=== PATIENT | male | born 1940 | race Caucasian/White ===

== ENCOUNTER 2021-03-30 21:46 | Inpatient (IN) ==
[2021-03-30] MEDS ORDERED: SODIUM CHLORIDE 0.9% 500 ML IV ONE ×2 (23:00→23:54)
--- NOTE | 2021-03-30 23:19 | XRay Report ---
SINGLE VIEW CHEST CLINICAL HISTORY: Sepsis. FINDINGS: 2 AP, portable, upright chest radiographs are compared to study dated 01/17/2021 and correla pop with chest CT dated 01/19/2021. The examination is degraded by portable technique and patient rota tion. The patient is status post midline sternotomy and cardiac valve surgeries. Epicardial pacing le ads are noted. The heart is markedly enlarged noting atherosclerotic calcification of the thoracic ao rta. There is mild pulmonary vascular congestion. Scarring/atelectasis is noted at the lung bases. Ch ronic interstitial thickening is similar to previous. No airspace consolidation or large pleural effu shira is identified. No pneumothorax is seen. The skeletal structures are osteopenic. The bony thorax is grossly intact. Thoracolumbar spinal rods are in place. IMPRESSION: Marked cardiomegaly with mild pulmonary vascular congestion. ACT 112: Negative or not required by law. Electronically signed by: Rome Mendoza M.D. 03/30/2021 11:18 PM
[2021-03-30 23:28] LABS: Hematocrit (blood only) 31.8 % (42-52); Hemoglobin 10.9 g/dL (14.0-18.0); Mean Corpuscular Hgb Conc 34.3 g/dL (32-36); Mean Corpuscular Volume 96.4 fL (80-100); Mean Platelet Volume 9.8 fL (7.4-10.4); Platelet Count 127 K/uL (130-400); RDW Coefficient of Variation 13.7 % (11.5-14.5); RDW Standard Deviation 48.7 fL (36.4-46.3); White Blood Count 20.14 K/uL (4.8-10.8)
[2021-03-30] MEDS ORDERED: cefTRIAXone SODIUM 1,000 MG/50 ML BAG IV STA (23:34)
[2021-03-30 23:41] LABS: INR 1.2 (0.9-1.1); Partial Thromboplastin Ratio 1.2; Prothrombin Time 11.9 Seconds (9.0-12.0)
[2021-03-30 23:46] LABS: BUN Creatinine Ratio 20.3 (10-20); Calcium 9.5 mg/dl (8.5-10.1); Creatinine Clr Calc Pharmacy 15.2 ml/min; Est GFR (Non-African American) 13.8; Magnesium 2.2 mg/dl (1.8-2.4); Potassium 3.9 mmol/L (3.5-5.1)
--- NOTE | 2021-03-31 00:03 | Emergency Department Note ---
Impression & Plan Sepsis, Acidosis, lactic, Acute hypotension, Acute pyelonephritis, Acute renal failure ED Provider Note NAME: SEEMA ARREOLA AGE: 80 SEX: M : 1940 ARRIVES VIA: Walk-In INFORMANT: Patient, the patient's family member ED PROVIDER(S): Gonsalo Tomlni DO CHIEF COMPLAINT: Decreased urine output and weakness. HPI: The patient is an 80-year-old male who presented to the emergency department with family member for an evaluation of decreased urine output. The patient had a Linares catheter change on Friday. The patient was seen in our facility in December this year. The patient had a febrile illness and was found to have bacteremia with streptococcal species. The patient was transferred to [place]. He has a history of aortic valve disease. The patient was started on an antibiotic yesterday by his primary care physician. The family member is not aware of the antibiotic he was started on. The patient started noticing fever over the last few days. He has had no nausea or vomiting. He has noticed some decreased output in the urinary Linares catheter. He denies having any chest pain. He does complain of some difficulty breathing. He denies having any fever acutely but did notice he was having weakness and dizziness upon standing. ROS: See above HPI for pertinent positives & negatives. A total of 10 systems reviewed and were otherwise negative. PAST MEDICAL HISTORY: See Below PAST SURGICAL HISTORY: See Below FAMILY HISTORY: See Below SOCIAL HISTORY: See Below HOME MEDICATIONS: See Below ALLERGIES: See Below VITALS: See Below PHYSICAL EXAMINATION: GENERAL: The patient is awake and alert. He is somewhat listless appearing. EYES: The conjunctivae are clear. The pupils are round and reactive. EARS, NOSE, MOUTH AND THROAT: The nose is without any evidence of any deformity. Mucous membranes are dry. NECK: The neck is nontender and supple. RESPIRATORY: Diminished breath sounds are noted throughout. There were rales at both bases. CARDIOVASCULAR: Irregular rhythm was noted auscultation. Systolic murmur was noted. GASTROINTESTINAL: The abdomen is mildly distended. There is suprapubic tenderness to palpation but no guarding rigidity. MUSCULOSKELETAL/EXTREMITIES: There is no evidence of gross deformity full range of motion is noted in the hips and shoulders. SKIN: Skin was pale and dry. Pedal edema was noted bilaterally. NEUROLOGIC: Patient is awake alert and oriented x3. MEDICAL DECISION MAKING: The patient is an 80-year-old male who presented to the emergency department for an evaluation of generalized weakness. The patient also has had a fever intermittently over the last few days. He was started on an antibiotic by his outpatient primary care physician only 24 hours ago. The patient was hypotensive upon arrival to the emergency department. The patient had no urine output and initially I thought he might be in urinary retention however the Linares catheter was replaced and the patient did not have significant urine output. The patient was treated with IV antibiotics and IV fluids. The patient recently had bacteremia with streptococcal species. His last urinary tract infection that had a definite causative agent had a mixed resistance pattern. The patient was treated with Rocephin after reviewing the antibiogram for the recent urinary tract infection. Blood cultures were taken. The patient was found no signs of renal failure as well as lactic acidosis. The patient was treated with IV fluids but given his history of congestive heart failure and valvular heart disease I did not want to put the patient in the pulmonary edema. He had a normal pulse but his blood pressure continue to be low. I discussed the patient's condition with the on-call [facility] group. They have agreed to evaluate the patient in the emergency department for further management and disposition. Triage Nursing notes reviewed. Prior medical records reviewed Vital Signs: reviewed and remarkable for hypotension. Differential diagnosis: Infection, dehydration, metabolic abnormality, hypo/hyperglycemia, electrolyte disturbance, anemia, hypoxia, cardiac sources, intracerebral event, toxicologic, neurologic, as well as other pathologies. ER treatment provided: See below Diagnostics interpreted by me: ECG: EKG was obtained in the emergency department. My interpretation is atrial fibrillation at 65 bpm. There were no PVCs noted. LVH was noted by voltage criteria. Lateral ST depressions with T wave inversions were noted. This was compared to a tracing from January 172020. No significant changes were noted. Cardiac Monitoring: An order was placed for continuous cardiac monitoring. The monitor shows a rate of 85 bpm with atrial fibrillation rhythm. Laboratory studies: As stated above and show below. Imaging studies: See below Consultation(s): I discussed this case with Dr. Mac who is on-call for the [facility] group. He will evaluate the patient in the emergency department. ED COURSE: Procedures: none PDMP:reviewed and no issues Critical Care: I have personally spent greater than 40 minutes of critical care time in the direct management of this patient. This includes bedside care, interpretation of diagnostic studies, and testing, discussion with consultants, patient, and family members, and other required patient management activities. This 40 minutes is in excess of all separately billable procedures. Past Med/Surg History Medical History Acute respiratory failure with hypoxia MONICO (acute kidney injury) Anxiety Atrial fibrillation "on Coumadin" CHF (congestive heart failure) Cirrhosis Depression Dyslipidemia HTN (hypertension) Hyponatremia Prosthetic aortic valve stenosis Pulmonary edema Streptococcal bacteremia Supratherapeutic INR Weakness Surgical History History of aortic valve replacement "2009" History of inguinal hernia repair History of mitral valve replacement "2009" S/P AVR S/P MVR (mitral valve repair) Status post repair of hydrocele Social History Smoking Status: Former smoker Tobacco Type: Cigarettes Hx Alcohol Use: Yes Alcohol type: wine Hx Substance Use: No Preferred Language: Romanian Communication Ability: Effective Current Living Situation: Spouse Feels Safe at Home: Yes Assistive Devices: Walker Allergies Allergies Allergy/AdvReac Type Severity Reaction Status Date / Time No Known Allergies Allergy Unknown Verified 03/30/21 23:14 Home Meds Home Medications Medication Instructions Recorded Confirmed amlodipine 10 mg PO HS 01/17/21 03/30/21 bupropion HCl 150 mg PO QPM 01/17/21 03/30/21 escitalopram oxalate 20 mg PO HS 01/17/21 03/30/21 furosemide 40 mg PO DAILY PRN 01/17/21 03/30/21 losartan 100 mg PO HS 01/17/21 03/30/21 tamsulosin 0.4 mg PO HS 01/17/21 03/30/21 triamterene-hydrochlorothiazid 1 cap PO HS 01/17/21 03/30/21 acetaminophen [Tylenol Extra 1,000 mg PO Q8H PRN 03/30/21 03/30/21 Strength] amoxicillin 2,000 mg PO DIRECTED PRN 03/30/21 03/30/21 aspirin 81 mg PO HS 03/30/21 03/30/21 cholecalciferol (vitamin D3) 125 mcg PO HS 03/30/21 03/30/21 [Vitamin D3] finasteride 5 mg PO HS 03/30/21 03/30/21 sulfamethoxazole-trimethoprim 1 tab PO BID 03/30/21 03/30/21 Results & Data (ED) Vital Signs Vital Signs - 24 hr 03/30/21 21:49 03/30/21 23:45 03/30/21 23:56 Temperature 36.9 C Temperature Source Temporal Artery Scan Pulse Rate 73 67 Pulse Rate from SpO2 Sensor Respiratory Rate 18 23 Respiratory Effort / Characteristics Non-Labored Spontaneous Non-Labored Spontaneous Respiratory Depth Normal Respiratory Pattern Regular Blood Pressure 93/59 L 97/56 L Blood Pressure Mean 70 69 Blood Pressure Position Sitting Pulse Oximetry 94 97 Oxygen Delivery Method Room Air Sepsis Recent Fever Within 48 Hours Yes Sepsis New/Unexplained Change in Mental Status No Sepsis Action Taken by Nursing No Action Required 03/31/21 00:31 03/31/21 00:40 03/31/21 01:00 Temperature Temperature Source Pulse Rate 62 59 L 76 Pulse Rate from SpO2 Sensor 62 62 Respiratory Rate 18 23 22 Respiratory Effort / Characteristics Respiratory Depth Respiratory Pattern Blood Pressure 83/39 L 103/56 L 99/67 L Blood Pressure Mean 53 71 77 Blood Pressure Position Pulse Oximetry 96 95 95 Oxygen Delivery Method Sepsis Recent Fever Within 48 Hours Sepsis New/Unexplained Change in Mental Status Sepsis Action Taken by [facility] Medications Current Medication List: was personally reviewed by me Laboratory Data Attestation: I reviewed the patient's lab results. Result diagrams: 03/30/21 23:15 03/30/21 23:15 Lab Results 03/30/21 03/30/21 03/30/21 Range/Units 23:15 23:15 23:15 WBC 20.14 H (4.8-10.8) K/uL RBC 3.30 L (4.7-6.1) M/uL Hgb 10.9 L (14.0-18.0) g/dL Hct 31.8 L (42-52) % MCV 96.4 (80-100) fL MCH 33.0 (25-34) pg MCHC 34.3 (32-36) g/dL RDW Std Deviation 48.7 H (36.4-46.3) fL RDW Coeff of Luis 13.7 (11.5-14.5) % Plt Count 127 L (130-400) K/uL MPV 9.8 (7.4-10.4) fL Immature Gran % (Auto) 0.7 % Neut % (Auto) 95.1 % Lymph % (Auto) 2.8 % Hooker % (Auto) 1.4 % Eos % (Auto) 0.0 % Baso % (Auto) 0.0 % Neut # (Auto) 19.14 H (1.4-6.5) K/uL Lymph # (Auto) 0.56 L (1.2-3.4) K/uL Hooker # (Auto) 0.29 (0.11-0.59) K/uL Eos # (Auto) 0.00 (0-0.5) K/uL Baso # (Auto) 0.01 (0-0.2) K/uL Immature Gran # (Auto) 0.14 H (0.00-0.02) K/uL Echinocytes 1+ PT 11.9 (9.0-12.0) Seconds INR 1.2 H (0.9-1.1) APTT 31.0 (21.0-31.0) Seconds PTT Ratio 1.2 Sodium 132 L (136-145) mmol/L Potassium 3.9 (3.5-5.1) mmol/L Chloride 96 L (98-107) mmol/L Carbon Dioxide 25 (21-32) mmol/L Anion Gap 11.0 (3-11) BUN 78 H (7-18) mg/dl Creatinine 3.85 H (0.6-1.4) mg/dl Est Cr Clr Drug Dosing 15.2 ml/min Est GFR ( Amer) 16.0 Est GFR (Non-Af Amer) 13.8 BUN/Creatinine Ratio 20.3 H (10-20) Glucose 123 H (70-99) mg/dl Lactate (0.4-2.0) mmol/L Calcium 9.5 (8.5-10.1) mg/dl Magnesium 2.2 (1.8-2.4) mg/dl Total Bilirubin 0.9 (0.2-1) mg/dl AST 26 (15-37) U/L ALT 18 (12-78) U/L Alkaline Phosphatase 97 (45-117) U/L Troponin I 0.484 H* (0-0.045) ng/ml Total Protein 7.2 (6.4-8.2) gm/dl Albumin 3.0 L (3.4-5.0) gm/dl Globulin 4.2 H (2.5-4.0) gm/dl Albumin/Globulin Ratio 0.7 L (0.9-2) Procalcitonin (0-0.5) ng/ml Urine Color Urine Appearance (Clear) Urine pH (4.5-7.5) Ur Specific [place] (1.000-1.030) Urine Protein (Negative) Urine Glucose (UA) (Negative) Urine Ketones (Negative) Urine Blood (Negative) Urine Nitrite (Negative) Urine Bilirubin (Negative) Urine Urobilinogen (Negative) Ur Leukocyte Esterase (Negative) Urine RBC (0-4) /hpf Urine WBC (0-5) /hpf Ur Epithelial Cells (0-5) /lpf Urine Bacteria (Negative) COVID-19 Eval Order SARS-CoV-2 (PCR) (Negative) Influenza Type A (PCR) (Neg) Influenza Type B (PCR) (Neg) RSV (RT-PCR) (Neg) 03/30/21 03/30/21 03/31/21 Range/Units 23:15 23:40 00:14 WBC (4.8-10.8) K/uL RBC (4.7-6.1) M/uL Hgb (14.0-18.0) g/dL Hct (42-52) % MCV (80-100) fL MCH (25-34) pg MCHC (32-36) g/dL RDW Std Deviation (36.4-46.3) fL RDW Coeff of Luis (11.5-14.5) % Plt Count (130-400) K/uL MPV (7.4-10.4) fL Immature Gran % (Auto) % Neut % (Auto) % Lymph % (Auto) % Hooker % (Auto) % Eos % (Auto) % Baso % (Auto) % Neut # (Auto) (1.4-6.5) K/uL Lymph # (Auto) (1.2-3.4) K/uL Hooker # (Auto) (0.11-0.59) K/uL Eos # (Auto) (0-0.5) K/uL Baso # (Auto) (0-0.2) K/uL Immature Gran # (Auto) (0.00-0.02) K/uL Echinocytes PT (9.0-12.0) Seconds INR (0.9-1.1) APTT (21.0-31.0) Seconds PTT Ratio Sodium (136-145) mmol/L Potassium (3.5-5.1) mmol/L Chloride (98-107) mmol/L Carbon Dioxide (21-32) mmol/L Anion Gap (3-11) BUN (7-18) mg/dl Creatinine (0.6-1.4) mg/dl Est Cr Clr Drug Dosing ml/min Est GFR ( Amer) Est GFR (Non-Af Amer) BUN/Creatinine Ratio (10-20) Glucose (70-99) mg/dl Lactate 5.1 H* (0.4-2.0) mmol/L Calcium (8.5-10.1) mg/dl Magnesium (1.8-2.4) mg/dl Total Bilirubin (0.2-1) mg/dl AST (15-37) U/L ALT (12-78) U/L Alkaline Phosphatase (45-117) U/L Troponin I (0-0.045) ng/ml Total Protein (6.4-8.2) gm/dl Albumin (3.4-5.0) gm/dl Globulin (2.5-4.0) gm/dl Albumin/Globulin Ratio (0.9-2) Procalcitonin 72.39 H (0-0.5) ng/ml Urine Color Urine Appearance (Clear) Urine pH (4.5-7.5) Ur Specific [place] (1.000-1.030) Urine Protein (Negative) Urine Glucose (UA) (Negative) Urine Ketones (Negative) Urine Blood (Negative) Urine Nitrite (Negative) Urine Bilirubin (Negative) Urine Urobilinogen (Negative) Ur Leukocyte Esterase (Negative) Urine RBC (0-4) /hpf Urine WBC (0-5) /hpf Ur Epithelial Cells (0-5) /lpf Urine Bacteria (Negative) COVID-19 Eval Order CovFluRsv at [facility] SARS-CoV-2 (PCR) (Negative) Influenza Type A (PCR) (Neg) Influenza Type B (PCR) (Neg) RSV (RT-PCR) (Neg) 03/31/21 03/31/21 Range/Units 00:14 00:14 WBC (4.8-10.8) K/uL RBC (4.7-6.1) M/uL Hgb (14.0-18.0) g/dL Hct (42-52) % MCV (80-100) fL MCH (25-34) pg MCHC (32-36) g/dL RDW Std Deviation (36.4-46.3) fL RDW Coeff of Luis (11.5-14.5) % Plt Count (130-400) K/uL MPV (7.4-10.4) fL Immature Gran % (Auto) % Neut % (Auto) % Lymph % (Auto) % Hooker % (Auto) % Eos % (Auto) % Baso % (Auto) % Neut # (Auto) (1.4-6.5) K/uL Lymph # (Auto) (1.2-3.4) K/uL Hooker # (Auto) (0.11-0.59) K/uL Eos # (Auto) (0-0.5) K/uL Baso # (Auto) (0-0.2) K/uL Immature Gran # (Auto) (0.00-0.02) K/uL Echinocytes PT (9.0-12.0) Seconds INR (0.9-1.1) APTT (21.0-31.0) Seconds PTT Ratio Sodium (136-145) mmol/L Potassium (3.5-5.1) mmol/L Chloride (98-107) mmol/L Carbon Dioxide (21-32) mmol/L Anion Gap (3-11) BUN (7-18) mg/dl Creatinine (0.6-1.4) mg/dl Est Cr Clr Drug Dosing ml/min Est GFR ( Amer) Est GFR (Non-Af Amer) BUN/Creatinine Ratio (10-20) Glucose (70-99) mg/dl Lactate (0.4-2.0) mmol/L Calcium (8.5-10.1) mg/dl Magnesium (1.8-2.4) mg/dl Total Bilirubin (0.2-1) mg/dl AST (15-37) U/L ALT (12-78) U/L Alkaline Phosphatase (45-117) U/L Troponin I (0-0.045) ng/ml Total Protein (6.4-8.2) gm/dl Albumin (3.4-5.0) gm/dl Globulin (2.5-4.0) gm/dl Albumin/Globulin Ratio (0.9-2) Procalcitonin (0-0.5) ng/ml Urine Color Dark Yellow Urine Appearance Turbid A (Clear) Urine pH 5.0 (4.5-7.5) Ur Specific [place] 1.025 (1.000-1.030) Urine Protein 2+ H (Negative) Urine Glucose (UA) Negative (Negative) Urine Ketones 1+ H (Negative) Urine Blood 3+ H (Negative) Urine Nitrite Negative (Negative) Urine Bilirubin 2+ H (Negative) Urine Urobilinogen Positive H (Negative) Ur Leukocyte Esterase 3+ H (Negative) Urine RBC >30 H (0-4) /hpf Urine WBC >30 H (0-5) /hpf Ur Epithelial Cells 5-10 H (0-5) /lpf Urine Bacteria 2+ H (Negative) COVID-19 Eval Order SARS-CoV-2 (PCR) NEGATIVE (Negative) Influenza Type A (PCR) Negative (Neg) Influenza Type B (PCR) Negative (Neg) RSV (RT-PCR) Negative (Neg) Administered Medications Discontinued Medications Sodium Chloride (Nss) 500 mls @ 999 mls/hr IV .Q31M ONE Stop: 03/30/21 23:30 Last Infusion: 03/31/21 01:05 Dose: 0 mls/hr Documented by: [id number] Admin: 03/31/21 00:10 Dose: 999 mls/hr Documented by: [id number] Ceftriaxone Sodium (Rocephin) 1,000 mg in 50 mls @ 100 mls/hr IV NOW STA Stop: 03/31/21 00:03 Last Admin: 03/31/21 00:35 Dose: Not Given Documented by: [id number] Sodium Chloride (Nss) 500 mls @ 999 mls/hr IV .Q31M ONE Stop: 03/31/21 00:24 Last Infusion: 03/31/21 01:05 Dose: 0 mls/hr Documented by: [id number] Admin: 03/31/21 00:10 Dose: 999 mls/hr Documented by: [id number] Piperacillin Sod/Tazobactam Sod (Zosyn) 4.5 gm in 120 mls @ 240 mls/hr IV NOW STA Stop: 03/31/21 00:38 Last Admin: 03/31/21 00:56 Dose: 240 mls/hr Documented by: [id number] Imaging Data Radiologist's Impression: Chest X-Ray 03/30/21 23:00 SINGLE VIEW CHEST CLINICAL HISTORY: Sepsis. FINDINGS: 2 AP, portable, upright chest radiographs are compared to study dated 01/17/2021 and correlated with chest CT dated 01/19/2021. The examination is degraded by portable technique and patient rotation. The patient is status post midline sternotomy and cardiac valve surgeries. Epicardial pacing leads are noted. The heart is markedly enlarged noting atherosclerotic calcification of the thoracic aorta. There is mild pulmonary vascular congestion. Scarring/atelectasis is noted at the lung bases. Chronic interstitial thickening is similar to previous. No airspace consolidation or large pleural effusion is identified. No pneumothorax is seen. The skeletal structures are osteopenic. The bony thorax is grossly intact. Thoracolumbar spinal rods are in place. IMPRESSION: Marked cardiomegaly with mild pulmonary vascular congestion. ACT 112: Negative or not required by law. Electronically signed by: Rome Mendoza M.D. 03/30/2021 11:18 PM Discharge Plan Visit Data Chief Complaint: Unable to Void Stated Complaint: RUNNING A FEVER, HAS CATHETER UNABLE TO URINATE ED Provider: Gonsalo Tomlin Discharge Problem: Sepsis, Acidosis, lactic, Acute hypotension, Acute pyelonephritis, Acute renal failure Patient Disposition: Being Evaluated by Hospitalist Condition: Good Forms Stand Alone Forms: My [facility] Prescriptions Prescriptions: No Action furosemide 40 mg tablet 40 mg PO DAILY PRN (Reason: Fluid Retention) RF: 0 triamterene-hydrochlorothiazid 37.5-25 mg capsule 1 cap PO HS RF: 0 tamsulosin 0.4 mg capsule 0.4 mg PO HS RF: 0 amlodipine 10 mg tablet 10 mg PO HS RF: 0 losartan 100 mg tablet 100 mg PO HS RF: 0 escitalopram oxalate 20 mg tablet 20 mg PO HS RF: 0 bupropion HCl 150 mg tablet extended release 24 hr 150 mg PO QPM RF: 0 amoxicillin 500 mg Capsule 2,000 mg PO DIRECTED PRN (Reason: PRIOR TO DENTAL PROCEDURES) RF: 0 sulfamethoxazole-trimethoprim 800-160 mg tablet 1 tab PO BID RF: 0 aspirin 81 mg Tablet,Delayed Release (Dr/Ec) 81 mg PO HS RF: 0 acetaminophen [Tylenol Extra Strength] 500 mg Tablet 1,000 mg PO Q8H PRN (Reason: FEVER/PAIN) RF: 0 finasteride 5 mg Tablet 5 mg PO HS RF: 0 cholecalciferol (vitamin D3) [Vitamin D3] 125 mcg (5,000 unit) Tablet 125 mcg PO HS RF: 0 Referrals Referrals: Benedict Swanson DO [Primary Care Provider] - Discharge Problem: Sepsis Qualifiers: Sepsis type: sepsis due to unspecified organism Sepsis acute organ dysfunction status: unspecified Qualified Code(s): A41.9 - Sepsis, unspecified organism Acute renal failure Qualifiers: Acute renal failure type: unspecified Qualified Code(s): N17.9 - Acute kidney failure, unspecified
[2021-03-31] MEDS ORDERED: PIPERACILL/TAZOBAC CONSULT ACTIVE PRN (00:05)
[2021-03-31] MEDS ORDERED: PIPERACILLIN/TAZOBACTAM 4.5 GM/120 ML BAG IV STA (00:09)
[2021-03-31 00:19] LABS: Albumin Globulin Ratio 0.7 (0.9-2); Bilirubin,Total 0.9 mg/dl (0.2-1); Globulin 4.2 gm/dl (2.5-4.0); Total Protein 7.2 gm/dl (6.4-8.2); Troponin I 0.484 ng/ml (0-0.045)
[2021-03-31 00:39] LABS: Appearance Urine Turbid (Clear); Bilirubin Urine 2+ (Negative); Blood Urine 3+ (Negative); Glucose Urine UA Negative (Negative); Ketones Urine 1+ (Negative); Leukocyte Esterase Urine 3+ (Negative); Nitrite Urine Negative (Negative); Protein Urine 2+ (Negative); Specific Gravity Urine 1.025 (1.000-1.030); Urobilinogen Urine Positive (Negative)
[2021-03-31 00:54] LABS: Color Urine Dark Yellow
[2021-03-31 00:55] LABS: Basophils # (auto) 0.01 K/uL (0-0.2); Echinocytes 1+; Immature Granulocytes # (auto) 0.14 K/uL (0.00-0.02); Immature Granulocytes % (auto) 0.7 %; Lymphocytes # (auto) 0.56 K/uL (1.2-3.4); Lymphocytes % (auto) 2.8 %; Monocytes # (auto) 0.29 K/uL (0.11-0.59); Monocytes % (auto) 1.4 %; Neutrophils # (auto) 19.14 K/uL (1.4-6.5); Neutrophils % (auto) 95.1 %
[2021-03-31 01:01] LABS: Bacteria Urine 2+ (Negative); RBC Urine >30 /hpf (0-4); WBC Urine >30 /hpf (0-5)
[2021-03-31 01:10] LABS: Influenza A virus by PCR Negative (Neg); Influenza B virus by PCR Negative (Neg); RSV by PCR Negative (Neg); SARS CoV2 RNA(COVID-19) InHosp NEGATIVE (Negative)
[2021-03-31] MEDS ORDERED: ACETAMINOPHEN 1000 MG/100 ML IV IV ONE ×2 (01:22→01:55)
[2021-03-31] MEDS ORDERED: ALBUT/IPRATROP 3MG/0.5MG NEB 3 ML VIAL NEB STA (01:51)
--- NOTE | 2021-03-31 01:51 | History & Physical Report ---
Date of Service March 31, 2021 Assessment & Plan (1) Hypotension: Multifactorial : Septic shock secondary to complicated UTI, history of BPH hypovolemia ARF secondary to illness, home medications, recent outpatient Bactrim Rx contributory A. 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 valve repair status post antibiotic Rx Chronic diastolic heart failure (EF 55 to 59% TTE January 2021), pulmonary congestion exacerbated by initial fluid resuscitation at the ER Troponin elevation secondary to illness Hematuria secondary to UTI, hemoglobin currently at baseline Hyperglycemia rule out DM past tobacco abuse ICU given need for pressor Rx CS, Zosyn Further crystalloid administration precluded by worsening pulmonary congestion on repeat x-ray at the ER Monitor creatinine response to IV albumin interim Hold home diuretics, ARB until creatinine back to baseline Nephrology consult Re: ARF Trend H&H, transfuse PRBC if hemoglobin less than 8 and or for symptomatic anemia (hx PVD as per records) Resume home aspirin once hemoglobin stable Check hemoglobin A1c PT OT eval once medically stable DVT prophylaxis. SCDs for now RE thrombocytopenia, hematuria DNR Patient requesting updates from providers. Ms. Mamie Rose, contact #[phone]. Total critical care time was 50 minutes. Text document was generated using [employer] voice recognition software. It may contain grammatical or spelling errors. Kindly contact undersigned for clarification of any documentation item in question. History of Present Illness Chief Complaint: Fever, chills, hematuria Primary Care Provider: Benedict Swanson DO History obtained from patient, family, and records. Medical history significant for chronic diastolic heart failure (EF 55%, TTE January 2021), A. 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 Last [facility] December 2020 for sepsis secondary to Streptococcus bacteremia s econdary to possible subacute bacterial endocarditis. Patient transferred to [facility] due to complex issues. Patient confined at [facility] January 21 to January 30, 2021. No surgical intervention for endocarditis. Patient discharged on 6-week course of Ceftriaxone via PICC line. During confinement, patient developed visual disturbance. CT head showed left occipitoparietal and left cerebellar intraparenchymal hemorrhage, left hemispheric subdural hemorrhage. No neurosurgical intervention. Patient Coumadin stopped on discharge. Patient discharged to rehab facility with Linares catheter given urinary retention and failed voiding trial despite tamsulosin and finasteride Rx. [facility] January 30 to March 06, 2021. Patient discharged back home 3 weeks ago. Patient seen by Iram Bravo urology provider 5 days ago for follow-up evaluation of urinary retention. Failed voiding trial at the office. Linares catheter was replaced. Cystoscopy contemplated for future visit as per documentation. I day after urology visit, patient noted to be febrile by patient's . Dark red blood noted in urine. Patient without abdominal plain/flank complaints. Patient PCP contacted by patient's yesterday after a few days of recurrent fever, poor appetite, worsening weakness. Patient denies chest pain, S OB, cough, abdominal pain, diarrhea, dysuria. No unusual confusion as per . Bactrim prescription prescribed. Patient brought to ER due to worsening symptoms. SBP noted to be 80s one point. IVF, Zosyn given at the ER. Patient subsequently noted by to be shaking, O2 sats 80s. Patient complaining of shortness of breath without cough. 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 Allergies Allergy/AdvReac Type Severity Reaction Status Date / Time No Known Allergies Allergy Unknown Verified 03/30/21 23:14 Home Medications Medication Instructions Recorded Confirmed Type amlodipine 10 mg PO HS 01/17/21 03/30/21 History bupropion HCl 150 mg PO QPM 01/17/21 03/30/21 History escitalopram oxalate 20 mg PO HS 01/17/21 03/30/21 History furosemide 40 mg PO DAILY PRN 01/17/21 03/30/21 History losartan 100 mg PO HS 01/17/21 03/30/21 History tamsulosin 0.4 mg PO HS 01/17/21 03/30/21 History triamterene-hydrochlorothiazid 1 cap PO HS 01/17/21 03/30/21 History acetaminophen [Tylenol Extra 1,000 mg PO Q8H PRN 03/30/21 03/30/21 History Strength] amoxicillin 2,000 mg PO DIRECTED PRN 03/30/21 03/30/21 History aspirin 81 mg PO HS 03/30/21 03/30/21 History cholecalciferol (vitamin D3) 125 mcg PO HS 03/30/21 03/30/21 History [Vitamin D3] finasteride 5 mg PO HS 03/30/21 03/30/21 History sulfamethoxazole-trimethoprim 1 tab PO BID 03/30/21 03/30/21 History Past Med/Surg History Medical History Acute respiratory failure with hypoxia [place]ICO (acute kidney injury) Anxiety Atrial fibrillation "on Coumadin" CHF (congestive heart failure) Cirrhosis Depression Dyslipidemia HTN (hypertension) Hyponatremia Prosthetic aortic valve stenosis Pulmonary edema Streptococcal bacteremia Supratherapeutic INR Weakness Surgical History History of aortic valve replacement "2009" History of inguinal hernia repair History of mitral valve replacement "2009" S/P AVR S/P MVR (mitral valve repair) Status post repair of hydrocele Social History Smoking Status: Former smoker Tobacco Type: Cigarettes Do You Dip or Chew Tobacco: No; Hx Alcohol Use: No Hx Substance Use: No Preferred Language: Beninese Communication Ability: Effective Marketing Sales Representative Required: No Beliefs That Will Affect Care: None Current Living Situation: Spouse Other Information That Helps Us Care for You: No Feels Safe at Home: Yes Safety Concerns: Feels Safe At This Time Assistive Devices: Glasses, Oxygen - at Night and Walker Review of Systems Review of Systems: As per HPI, all 10 systems reviewed, all other ROS negative Physical Exam Physical Exam: GENERAL: uncomfortable, minimal respiratory distress SKIN: Pallor, warm HEENT: Bentley palpebral conjunctivae, no ptosis, dry buccal mucosa, nasal cannula in place NECK : Supple, no tenderness CHEST : Decreased breath sounds, expiratory wheezes, no tenderness HEART : Irregular, systolic murmur best heard on the left sternal border ABDOMEN: Some distention, nontender EXTREMITIES : No LE swelling/tenderness, no other conspicuous deformities noted NEUROLOGIC : Coherent, no facial asymmetry, no other gross focality Results & Data Results & Data ([facility]) Vital Signs (Past 12 Hours) Vital Signs Temp Pulse Resp BP Pulse Ox 03/31/21 01:38 84 L 03/31/21 01:00 76 22 99/67 L 95 03/31/21 00:40 59 L 23 103/56 L 95 03/31/21 00:31 62 18 83/39 L 96 03/30/21 23:45 67 23 97/56 L 97 03/30/21 21:49 36.9 C 73 18 93/59 L 94 Laboratory Results Laboratory Results WBC 20.14 K/uL (4.8-10.8) H 03/30/21 23:15 RBC 3.30 M/uL (4.7-6.1) L 03/30/21 23:15 Hgb 10.9 g/dL (14.0-18.0) L 03/30/21 23:15 Hct 31.8 % (42-52) L 03/30/21 23:15 MCV 96.4 fL (80-100) 03/30/21 23:15 MCH 33.0 pg (25-34) 03/30/21 23:15 MCHC 34.3 g/dL (32-36) 03/30/21 23:15 RDW Std Deviation 48.7 fL (36.4-46.3) H 03/30/21 23:15 RDW Coeff of Luis 13.7 % (11.5-14.5) 03/30/21 23:15 Plt Count 127 K/uL (130-400) L 03/30/21 23:15 MPV 9.8 fL (7.4-10.4) 03/30/21 23:15 Immature Gran % (Auto) 0.7 % 03/30/21 23:15 Neut % (Auto) 95.1 % 03/30/21 23:15 Lymph % (Auto) 2.8 % 03/30/21 23:15 Posey % (Auto) 1.4 % 03/30/21 23:15 Eos % (Auto) 0.0 % 03/30/21 23:15 Baso % (Auto) 0.0 % 03/30/21 23:15 Neut # (Auto) 19.14 K/uL (1.4-6.5) H 03/30/21 23:15 Lymph # (Auto) 0.56 K/uL (1.2-3.4) L 03/30/21 23:15 Posey # (Auto) 0.29 K/uL (0.11-0.59) 03/30/21 23:15 Eos # (Auto) 0.00 K/uL (0-0.5) 03/30/21 23:15 Baso # (Auto) 0.01 K/uL (0-0.2) 03/30/21 23:15 Immature Gran # (Auto) 0.14 K/uL (0.00-0.02) H 03/30/21 23:15 Echinocytes 1+ 03/30/21 23:15 PT 11.9 Seconds (9.0-12.0) 03/30/21 23:15 INR 1.2 (0.9-1.1) H 03/30/21 23:15 APTT 31.0 Seconds (21.0-31.0) 03/30/21 23:15 PTT Ratio 1.2 03/30/21 23:15 Sodium 132 mmol/L (136-145) L 03/30/21 23:15 Potassium 3.9 mmol/L (3.5-5.1) 03/30/21 23:15 Chloride 96 mmol/L (98-107) L 03/30/21 23:15 Carbon Dioxide 25 mmol/L (21-32) 03/30/21 23:15 Anion Gap 11.0 (3-11) 03/30/21 23:15 BUN 78 mg/dl (7-18) H 03/30/21 23:15 Creatinine 3.85 mg/dl (0.6-1.4) H 03/30/21 23:15 Est Cr Clr Drug Dosing 15.2 ml/min 03/30/21 23:15 Est GFR ( Amer) 16.0 03/30/21 23:15 Est GFR (Non-Af Amer) 13.8 03/30/21 23:15 BUN/Creatinine Ratio 20.3 (10-20) H 03/30/21 23:15 Glucose 123 mg/dl (70-99) H 03/30/21 23:15 Lactate 5.1 mmol/L (0.4-2.0) H* 03/30/21 23:40 Calcium 9.5 mg/dl (8.5-10.1) 03/30/21 23:15 Magnesium 2.2 mg/dl (1.8-2.4) 03/30/21 23:15 Total Bilirubin 0.9 mg/dl (0.2-1) 03/30/21 23:15 AST 26 U/L (15-37) 03/30/21 23:15 ALT 18 U/L (12-78) 03/30/21 23:15 Alkaline Phosphatase 97 U/L (45-117) 03/30/21 23:15 Troponin I 0.484 ng/ml (0-0.045) H* 03/30/21 23:15 Total Protein 7.2 gm/dl (6.4-8.2) 03/30/21 23:15 Albumin 3.0 gm/dl (3.4-5.0) L 03/30/21 23:15 Globulin 4.2 gm/dl (2.5-4.0) H 03/30/21 23:15 Albumin/Globulin Ratio 0.7 (0.9-2) L 03/30/21 23:15 Procalcitonin 72.39 ng/ml (0-0.5) H 03/30/21 23:15 Urine Color Dark Yellow 03/31/21 00:14 Urine Appearance Turbid (Clear) A 03/31/21 00:14 Urine pH 5.0 (4.5-7.5) 03/31/21 00:14 Ur Specific [place] 1.025 (1.000-1.030) 03/31/21 00:14 Urine Protein 2+ (Negative) H 03/31/21 00:14 Urine Glucose (UA) Negative (Negative) 03/31/21 00:14 Urine Ketones 1+ (Negative) H 03/31/21 00:14 Urine Blood 3+ (Negative) H 03/31/21 00:14 Urine Nitrite Negative (Negative) 03/31/21 00:14 Urine Bilirubin 2+ (Negative) H 03/31/21 00:14 Urine Urobilinogen Positive (Negative) H 03/31/21 00:14 Ur Leukocyte Esterase 3+ (Negative) H 03/31/21 00:14 Urine RBC >30 /hpf (0-4) H 03/31/21 00:14 Urine WBC >30 /hpf (0-5) H 03/31/21 00:14 Ur Epithelial Cells 5-10 /lpf (0-5) H 03/31/21 00:14 Urine Bacteria 2+ (Negative) H 03/31/21 00:14 COVID-19 Eval Order CovFluRsv at [facility] 03/31/21 00:14 SARS-CoV-2 (PCR) NEGATIVE (Negative) 03/31/21 00:14 Influenza Type A (PCR) Negative (Neg) 03/31/21 00:14 Influenza Type B (PCR) Negative (Neg) 03/31/21 00:14 RSV (RT-PCR) Negative (Neg) 03/31/21 00:14 Impressions Chest X-Ray 03/30/21 23:00 SINGLE VIEW CHEST CLINICAL HISTORY: Sepsis. FINDINGS: 2 AP, portable, upright chest radiographs are compared to study dated 01/17/2021 and correlated with chest CT dated 01/19/2021. The examination is degraded by portable technique and patient rotation. The patient is status post midline sternotomy and cardiac valve surgeries. Epicardial pacing leads are noted. The heart is markedly enlarged noting atherosclerotic calcification of the thoracic aorta. There is mild pulmonary vascular congestion. Scarring/atelectasis is noted at the lung bases. Chronic interstitial thickening is similar to previous. No airspace consolidation or large pleural effusion is identified. No pneumothorax is seen. The skeletal structures are osteopenic. The bony thorax is grossly intact. Thoracolumbar spinal rods are in place. IMPRESSION: Marked cardiomegaly with mild pulmonary vascular congestion. ACT 112: Negative or not required by law. Electronically signed by: Rome Mendoza M.D. 03/30/2021 11:[address] abdomen pelvis initial read: Liver enlargement, splenic calcifications. Gallbladder mildly distended but without thickening. Rectal thickening. Linares catheter in the bladder. Prominent prostate, atherosclerotic changes abdominal aorta. Bilateral pleural fluid collections appear new from prior study, correlate with cardiac dysfunction. Cystitis. EKG as per my interpretation rate 65 A. fib, normal axis, T wave abnormalities lateral leads
[2021-03-31] MEDS ORDERED: ALBUT/IPRATROP 3MG/0.5MG NEB 3 ML VIAL ONE ×2 (01:56→22:12)
[2021-03-31 02:12] LABS: Base Excess ABG -5.1 mEq/L (-9-1.8); HCO3 ABG 18 mmol/L (19-24); Oxygen Saturation ABG 97.3 % (90-95); PCO2 ABG 26 mmHg (35-46); PO2 ABG 88 mmHg (80-95); pH ABG 7.45 (7.35-7.45)
[2021-03-31 02:15] LABS: Allen Test POS (Pos)
[2021-03-31 02:23] LABS: BUN Creatinine Ratio 22.3 (10-20); Calcium 8.4 mg/dl (8.5-10.1); Creatinine Clr Calc Pharmacy 15.9 ml/min; Est GFR (African American) 16.9; Est GFR (Non-African American) 14.6; Potassium 3.8 mmol/L (3.5-5.1)
[2021-03-31 02:33] LABS: Troponin I 0.48 ng/ml (0-0.045)
[2021-03-31] MEDS ORDERED: STAT IV Infusion **Titration per Protocol STA (02:39)
[2021-03-31] MEDS ORDERED: NOREPINEPHRINE/D5W 8 MG/508 ML BAG IV SCH (02:45)
--- NOTE | 2021-03-31 04:00 | Communication Note ---
Date of Service: March 31, 2021 Around 3:45 AM (while waiting transfer from ED to ICU room), patient complained to RN of left upper extremity weakness, clumsiness, trouble handling his eyegl asses. Patient denies headache. No slurred speech, leg weakness, new visual disturbance complaints. 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 (Corresponds to focal hyperdensity left occipital parietal region consistent with intraparen chymal hemorrhage with surrounding hypodense vasogenic edema with mass-effect on outpatient follow-up CT at [facility] February 2021 as per discussion with teleradiologist.) AP LUE weakness Possible CVA hx A. fib, off anticoagulation secondary to recent ICH (01/2021) Neurochecks MRI/MRA brain, carotid Dopplers, TTE for stroke work-up Neurology consult Re: LUE weakness Case discussed with [facility] stroke specialist (Dr. Sy) who does not recommend TPA given recent ICH.
[2021-03-31] MEDS ORDERED: CEFEPIME CONSULT ACTIVE PRN (04:24)
--- NOTE | 2021-03-31 04:32 | Critical Care Consultation ---
Date of Consultation March 31, 2021 Assessment & Plan (1) Septic shock: Reason Critically Ill: 80-year-old male presents to the ICU with septic shock likely from urinary source, requiring vasopressor support. Neuro - Recent intracranial hemorrhagepatient underwent medical management with hype rtonic saline at [place] and had a diagnostic cerebral injury gram on 01/25 which was without evidence of intracranial vascular malformation, aneurysm, vasospasm, and other intracranial vascular abnormality. Coumadin and heparin were stopped at this time. Likely attributed to supratherapeutic INR. Continue to hold anticoagulation -CT head demonstrated area of edema in the left posterior temporal and occipital lobes, would be consistent with recent injury. No evidence of midline shift. Depression: Continue Wellbutrin, Lexapro Cardiac - Septic shockpatient presents with hypotension with high suspicion for septic etiology given elevated WBC, fevers, elevated procalcitonin and lactate, and recent hospitalization for ongoing sepsis -See ID treatment below -Currently on Levophed, titrate for maps greater than 65. CVC is inserted on arrival to the ICU -Careful with IV fluid resuscitation as patient did become hypoxic and SOB following IV bolus in the ED, which had to be stopped before completion. -Last TTE in December showed EF of 40 to 45%, severe prosthetic aortic stenosis. Will repeat echo this a.m., follow-up. -DICK at [place] negative for vegetation, underent 6-week antibiotic coarse for presumed treatment -H&H 09/23, no indication for transfusion -Cortisol pending -Hold antihypertensives and diuretics at this time CHFpatient with history of valvular heart failure and underwent MVR and AVR in 2009. -Recent TTE demonstrates EF of 40 to 45% with severe prosthetic aortic stenosis -Holding diuretics due to hypotension -Careful with IV fluids given pulmonary congestion -Follow-up TTE A. fibnot anticoagulated, currently rate controlled -History of pacemaker -Continuous monitoring on telemetry Respiratory - Hypoxialikely secondary to pulmonary congestion given severe aortic stenosis, however cannot rule out infectious process at this time -Currently maintaining oxygen saturation on 2 L nasal cannula, lungs clear to auscultation -Chest x-ray with bilateral patchy opacifications consistent with pulmonary edema -Careful with IV fluid resuscitation as patient did become hypoxic in the ED following IV bolus -We will hold on diuretics for the time being as he is currently hypotensive with significant MONICO -Continuous monitor on pulse ox -Nebs as needed -Wean O2 as tolerated GI - Varicesunderwent EGD prior to DICK on recent hospitalization at [place]. Found to have small esophageal varices, LA grade a esophagitis, and hematin in the gastric body. Was started on Prilosec daily. Continue PPI RENAL/LYTES - AKIpatient with elevated creatinine 3.8, with prior baseline 1.05 -No obstruction/hydronephrosis noted on CT imaging -Suspect this is likely attributed to ATN as patient presented with hypotension in the setting of sepsis -Started on Levophed to maintain maps greater than 65 -We will attempt gentle IV fluid resuscitation if patient is able to tolerate -Avoid nephrotoxins and renally adjust medications -Trend BMPs and replete electrolytes as indicated. Patient is currently without any electrolyte abnormalities. -Nephrology consulted, follow-up recs -Monitor urine output closely - Foleypatient recently had chronic Linares inserted following prior admission approximately 1 month ago in which he was unable to void. He follows with urology outpatient and recently had Linares changed on Friday. -Monitor strict I's and O's BPHFoley cath -Continue Proscar/Flomax ENDO - No history of diabetes or thyroid disease, ICU hyperglycemic protocol HEME - Hemoglobin stable at 10. Monitor routine CBCs and transfuse if indicated ID - Sepsispatient presents with WBC 20, subjective fevers, procalcitonin 70, and elevated lactate of 5.1 in the setting of hypotension -Likely urinary source as patient had positive UA, cystitis demonstrated on CT imaging and patient now has chronic Linares due to BPH. However, cannot rule out other etiologies at this time and patient had recent hospitalization for ongoing sepsis, with work-up for endocarditis via DICK which was negative for vegetation, but underwent full 6-week course of ceftriaxone via PICC line. -December admission with positive blood cultures for Streptococcus mitis/oralis. With some intermittent resistance to Zosyn. -Currently on cefepime, vancomycin. Blood cultures and urine culture pending. -Consider ID consultation LINES/IV ACCESS - Peripheral IVs, RIJ CVC DVT PROPHYLAXIS - SCDs, hold anticoagulation for recent intracranial hemorrhage CODE STATUS: DNR/DNI I have personally spent 55 minutes of critical care time in the direct m anagement of this patient. This is a life/limb threatening event. This includes time spent evaluating patient, direct bedside care, chart review, placing orders, interpretation of diagnostic studies, discussion with consultants, patient, and family members, as well as other required patient management activities. This time is exclusive of all separately billable procedures, and teaching time and separate from and in addition to any other critical care service time. Thank you for allowing us to participate in the care of this patient. Please refer to my attending physician's documentation for any further recommendations. (2) Acidosis, lactic: (3) Acute pyelonephritis: (4) Acute renal failure: (5) Acute respiratory failure with hypoxia: (6) History of mitral valve replacement: (7) History of aortic valve replacement: (8) Anxiety: (9) Depression: (10) CHF (congestive heart failure): (11) Atrial fibrillation: (12) MONICO (acute kidney injury): Supervising Physician Co-Signing Physician Notes Discussed with critical care RAFFAELE. Agree with assessment plan as noted. Please refer to my addendum note today for additional details History of Present Illness History of Present Illness Mr. Giron is a 80-year-old male with extensive past medical history including valvular heart disease s/p MVR and AVR in 2009, prosthetic aortic valve stenosis, esophageal varices, cirrhosis, BPH with chronic Linares, A. fib (not anticoagulated) and recent hospitalization at [facility] where he underwent treatment for ongoing sepsis and underwent work-up for endocarditis. His hospitalization course was complicated by development of left occipital IPH and underwent diagnostic cerebral angiogram without intervention, and Coumadin and heparin were stopped. He was also worked up for endocarditis with DICK, which was negative for vegetation. Blood cultures were positive for Streptococcus mitis/paralysis as well as GPC's in chains. He underwent 6-weeks antibiotic coarse w/ ceftriaxone for treatment of presumed endocarditis. Earlier this evening, patient presented to the emergency department with chief complaints of decreased urine output, weakness, intermittent fever for the past few days, and dizziness while standing. His Linares catheter recently was replaced by urologist on Friday, and the patient was started on oral antibiotics by his primary care provider yesterday. In the ED, patient was found to be hypotensive and BMP revealed creatinine 3.85 with prior baseline 1.05. He had a WBC of 20,000, and UA was +2 bacteria. He had a lactate elevated at 5 and pro calcitonin of 70. CT abdomen without evidence of hydronephrosis, but did show bladder wall thickening consistent with cystitis and gallbladder with mild distention but without gallbladder wall thickening or charles surrounding inflammatory change. Blood cultures and urine cultures were collected and he was started on IV antibiotics. Crystalloid bolus was attempted but the patient became hypoxic, requiring oxygen shortly after the bolus was started. His last echo showed EF 40 to 45% and severe valvular aortic stenosis. Patient is DNR/DNI but was amendable to vasopressors and he was started on Levophed in the ED. He is now being transferred to ICU for further management at this time. Of note, I was informed by the primary team that the patient had developed weakness in his left arm and was sent for a CT head stat. Patient would not be a candidate for TPA due to recent ICH. He was reevaluated on arrival to the ICU, and symptoms seem to be resolving. Primary team did talk to [place] neurology as well. On arrival to the ICU the patient is alert and oriented and appears comfortable on 2 L nasal cannula. He states that coordination in his left hand feels slightly off, but was able to demonstrate normal [id number] and equal strength. He has no other neurological symptoms. He denies any headache, dizziness or syncope, changes in vision, numbness. He reports mild shortness of breath. He denies recent sore throat or cough, chest pain or palpitations, nausea or bloating or diarrhea, or abdominal pain. He does report recent swelling in his abdomen which he states has been ongoing for the past 2 days, but denies swelling in his hands and feet. Allergies Allergy/AdvReac Type Severity Reaction Status Date / Time No Known Allergies Allergy Unknown Verified 03/30/21 23:14 Home Medications Medication Instructions Recorded Confirmed Type amlodipine 10 mg PO HS 01/17/21 03/30/21 History bupropion HCl 150 mg PO QPM 01/17/21 03/30/21 History escitalopram oxalate 20 mg PO HS 01/17/21 03/30/21 History furosemide 40 mg PO DAILY PRN 01/17/21 03/30/21 History losartan 100 mg PO HS 01/17/21 03/30/21 History tamsulosin 0.4 mg PO HS 01/17/21 03/30/21 History triamterene-hydrochlorothiazid 1 cap PO HS 01/17/21 03/30/21 History acetaminophen [Tylenol Extra 1,000 mg PO Q8H PRN 03/30/21 03/30/21 History Strength] amoxicillin 2,000 mg PO DIRECTED PRN 03/30/21 03/30/21 History aspirin 81 mg PO HS 03/30/21 03/30/21 History cholecalciferol (vitamin D3) 125 mcg PO HS 03/30/21 03/30/21 History [Vitamin D3] finasteride 5 mg PO HS 03/30/21 03/30/21 History sulfamethoxazole-trimethoprim 1 tab PO BID 03/30/21 03/30/21 History Patient History Medical History Acute respiratory failure with hypoxia MONICO (acute kidney injury) Anxiety Atrial fibrillation "on Coumadin" CHF (congestive heart failure) Cirrhosis Depression Dyslipidemia HTN (hypertension) Hyponatremia Prosthetic aortic valve stenosis Pulmonary edema Streptococcal bacteremia Supratherapeutic INR Weakness Surgical History History of aortic valve replacement "2009" History of inguinal hernia repair History of mitral valve replacement "2009" S/P AVR S/P MVR (mitral valve repair) Status post repair of hydrocele Social History Smoking Status: Former smoker Tobacco Type: Cigarettes Do You Dip or Chew Tobacco: No; Hx Alcohol Use: No Hx Substance Use: No Preferred Language: Citizen Of [place] Communication Ability: Effective Plate Glass Polisher Required: No Beliefs That Will Affect Care: None Current Living Situation: Spouse Other Information That Helps Us Care for You: No Feels Safe at Home: Yes Safety Concerns: Feels Safe At This Time Assistive Devices: Glasses, Oxygen - at Night and Walker Results & Data Results & Data ([facility]) Vital Signs (Past 12 Hours) Vital Signs Temp Pulse Pulse Resp BP Pulse Ox 03/31/21 04:00 75 22 94/51 L 98 03/31/21 03:45 71 22 96/54 L 98 03/31/21 03:38 74 22 93/51 L 96 03/31/21 03:15 69 20 95/54 L 99 03/31/21 03:00 68 18 96/51 L 100 03/31/21 02:55 76 23 90/49 L 100 03/31/21 02:44 72 25 H 80/52 L 100 03/31/21 02:30 74 28 H 82/47 L 97 03/31/21 02:02 79 20 97 03/31/21 02:00 77 28 H 93/56 L 100 03/31/21 01:38 84 L 03/31/21 01:30 98 H 28 H 106/67 100 03/31/21 01:00 76 22 99/67 L 95 03/31/21 00:40 59 L 23 103/56 L 95 03/31/21 00:31 62 18 83/39 L 96 03/30/21 23:45 67 23 97/56 L 97 03/30/21 21:49 36.9 C 73 18 93/59 L 94 Coding Level of Care Code Critical Care 1st 30-74 mins Diagnoses Septic shock A41.9; R65.21 Acidosis, lactic E87.2 Acute pyelonephritis N10 Acute renal failure N17.9 Acute renal failure type: unspecified Acute respiratory failure with hypoxia J96.01 History of mitral valve replacement Z95.2 History of aortic valve replacement Z95.2 Anxiety F41.9 Depression F32.9 CHF (congestive heart failure) I50.9 Atrial fibrillation I48.91 MONICO (acute kidney injury) N17.9 (1) Acute renal failure Acute renal failure type: unspecified Qualified Code(s): N17.9 - Acute kidney failure, unspecified
[2021-03-31] MEDS ORDERED: PROMETHAZINE HCL 6.25 MG in SODIUM CHLORIDE 0.9% 50 ML IV PRN (04:43)
[2021-03-31] MEDS ORDERED: ICU PROTOCOL FOR HYPERGLYCEMIA PRN (04:43)
[2021-03-31] MEDS ORDERED: HYDROmorphone INJ 0.5 MG/0.5 ML SYR IV PRN (04:43)
[2021-03-31] MEDS: ALBUMIN 25% 12.5 GM/50 ML VIAL IV SCH ×4 (04:55→23:37)
[2021-03-31] MEDS ORDERED: CEFEPIME 2,000 MG in SYRINGE 0 ML IV ONE (05:00)
[2021-03-31 05:19] LABS: Hematocrit (blood only) 28.4 % (42-52); Mean Corpuscular Hemoglobin 33.6 pg (25-34); Mean Corpuscular Hgb Conc 35.2 g/dL (32-36); Mean Corpuscular Volume 95.3 fL (80-100); Mean Platelet Volume 9.6 fL (7.4-10.4); Platelet Count 103 K/uL (130-400); RDW Coefficient of Variation 13.8 % (11.5-14.5); RDW Standard Deviation 48.3 fL (36.4-46.3); Red Blood Count 2.98 M/uL (4.7-6.1); White Blood Count 14.18 K/uL (4.8-10.8)
--- NOTE | 2021-03-31 05:40 | Procedure Note ---
Procedure Note Date of Service March 31, 2021 INTERNAL JUGULAR CENTRAL LINE PROCEDURE NOTE: Procedure: Internal Jugular Central Line Placement Attending: Dr. Sheriff Provider: TEE Wilson Indication: Central Drug Administration Anesthesia: Lidocaine 1% Line placed emergently in the setting of hypotension and septic shock requiring vasopressor support. A time-out was completed verifying correct patient, procedure, site, positioning, and implants(s) or special equipment if applicable. Patients right neck was cleansed and draped in the typical sterile fashion using Chloraprep. The Internal Jugular Vein and Carotid Artery were identified using ultrasound. The superficial tissue was anesthetized using 3 mL of 1% lidocaine without epinephrine under direct visualization with the ultrasound. After adequate anesthetization was achieved, the Internal Jugular vein was cannulated under direct ultrasound guidance using an introducer needle on a syringe. Good venous blood return was maintained prior to removal of syringe from introducer needle. Using Seldinger Technique, a guide wire was advanced through the introducer needle without resistance. The introducer needle was removed and ultrasound images were obtained of the guide wire within the Internal Jugular Vein and saved to the patients medical record. A small incision was made in penetrating fashion at the guide wire insertion site utilizing an 11 blade scalpel. The dilator was advanced to the vessel without resistance. The dilator was exchanged for the triple lumen catheter which was advanced into the vessel without resistance. The guide wire was removed intact from the catheter without issue. Claves were placed on each catheter tip with confirmation of good blood flow from each lumen. Each port was easily flushed with sterile saline. The catheter was placed at 17 cm and sut[address] in place. BioPatch was applied to the catheter and a sterile Tegaderm dressing was applied over the catheter with careful attention to sterility. Patient tolerated procedure well. No immediate complications were met. Post procedure x-ray was completed, placement was appropriate and no pneumothorax was noted. Images obtained are saved for permanent record Procedural Ultrasound Guidance: Procedure Date: 03/31/2021 Indication: Central venous catheter insertion Attending: Dr. Shemar Sheriff Provider: TEE Wilson Artery AND Vein visualized: Yes Compressible Vein: Yes Guidewire or Short Catheter seen in vein prior to dilation: Yes Line confirmed in Vein with ultrasound: Yes Images obtained are saved for permanent record. Coding CPT Codes Tubes, Drains, and Vasc Access - Tubes, Drains, and Vasc Access: [id number] Place catheter in vein superior or inferior vena cava ([id number]) Tubes, Drains, and Vasc Access - Tubes, Drains, and Vasc Access: [id number] Ultrasound Guidance For Vascular ([id number]) [facility] Procedure Codes (Charges) Tubes, Drains, and Vasc Access Procedure 1: Tubes, Drains, and Vasc Access: [id number] Place catheter in vein superior or inferior vena cava Procedure 2: Tubes, Drains, and Vasc Access: [id number] Ultrasound Guidance For Vascular
[2021-03-31] MEDS ORDERED: VANCOMYCIN CONSULT ACTIVE PRN ×2 (05:42)
[2021-03-31 05:44] LABS: BUN Creatinine Ratio 22.1 (10-20); Calcium 8.2 mg/dl (8.5-10.1); Creatinine Clr Calc Pharmacy 15.4 ml/min; Est GFR (African American) 16.2; Est GFR (Non-African American) 13.9; Potassium 3.4 mmol/L (3.5-5.1)
[2021-03-31] MEDS ORDERED: NORMOSOL-R 1,000 ML IV ONE (05:44)
[2021-03-31] MEDS ORDERED: VANCOMYCIN HCL 1,500 MG in SODIUM CHLORIDE 0.9% 500 ML IV ONE (06:00)
[2021-03-31 06:06] LABS: Echinocytes 1+; Immature Granulocytes # (auto) 0.18 K/uL (0.00-0.02); Immature Granulocytes % (auto) 1.3 %; Lymphocytes # (auto) 0.35 K/uL (1.2-3.4); Lymphocytes % (auto) 2.5 %; Monocytes # (auto) 0.48 K/uL (0.11-0.59); Monocytes % (auto) 3.4 %; Neutrophils # (auto) 13.17 K/uL (1.4-6.5); Neutrophils % (auto) 92.8 %
[2021-03-31] MEDS ORDERED: POTASSIUM CHLORIDE CRTAB 20 MEQ TABCR PO STA (06:25)
[2021-03-31 07:03] LABS: Estimated Average Glucose 103 mg/dl; Hemoglobin A1C 5.2 % (4.5-5.6)
--- NOTE | 2021-03-31 07:19 | XRay Report ---
XR chest 1V portable CLINICAL HISTORY: cvc insertion COMPARISON STUDY: Chest radiograph March 31, 2021 2:[address] January 19, 2021. FINDINGS: There is no pneumothorax following placement of a right internal jugular central line. Cath eter tip projects over the distal SVC. Cardiomegaly is noted with prosthetic aortic and mitral valves . Thoracolumbar spine fusion hardware is partially imaged. There are trace bilateral pleural effusion s. There is no pneumothorax. Interstitial thickening has slightly improved. IMPRESSION: 1. No pneumothorax following placement of a right internal jugular central line. 2. Mild pulmonary edema, slightly improved since prior exam. 3. Trace bilateral pleural effusions. 4. Cardiomegaly ACT 112: Negative or not required by law. Electronically signed by: Randell Humphreys M.D. 03/31/2021 7:18 AM
--- NOTE | 2021-03-31 07:38 | CT Scan Report ---
CT OF THE HEAD WITHOUT CONTRAST CLINICAL HISTORY: LUE weakness COMPARISON STUDY: Head CT March 08, 2015. CT DOSE: 1182.60 mGy.cm TECHNIQUE: Helical axial images of the head were obtained without IV contrast. Automated exposure con trol was utilized for the study. A dose lowering technique was utilized adhering to the principles o f ALARA. FINDINGS: Note is made of a 4.7 x 2.9 cm mixed attenuation abnormality within the left occipital lobe on axial image 13 of 32. Adjacent hypodensity is noted. There is mild mass effect. Loss of chacon-whit e differentiation is noted within the adjacent hypodensity. Basal cisterns are patent. Ventricular sy stem is unremarkable. White matter hypodensities favor small vessel disease. Exam is mildly compromis ed by motion artifact. A 6 mm hypodensity within left cerebellar hemisphere is noted. There is a 1.5 cm hypodensity within the right cerebellar hemisphere. There are no significant calvarial abnormaliti es. IMPRESSION: 1. 4.7 x 2.9 cm mixed attenuation abnormality within the left occipital lobe with adjacent hypodensit y and loss of chacon-white differentiation with mild mass effect. This may reflect an infarct with suba cute hemorrhage. A neoplastic process is within the differential although considered less likely. An MRI of the brain with and without contrast is recommended. If MRI is not possible, short-term follow- up head CT in 24 hours is recommended. 2. Suspected age-indeterminate infarcts within the bilateral cerebellar hemispheres. ACT 112: Negative or not required by law. Electronically signed by: Randell Humphreys M.D. 03/31/2021 7:36 AM
--- NOTE | 2021-03-31 07:50 | XRay Report ---
XR chest 1V portable CLINICAL HISTORY: low o2, ffup COMPARISON STUDY: Chest radiograph March 30, 2021. FINDINGS: There are median sternotomy wires, aortic and mitral valves and thoracolumbar spine fusion hardware. Marked cardiomegaly is noted. There is no pneumothorax. There are small bilateral pleural e ffusions. Interstitial thickening with pleural vascular congestion has increased. IMPRESSION: 1. Cardiomegaly with increase in pulmonary edema. 2. Small bilateral pleural effusions. ACT 112: Negative or not required by law. Electronically signed by: Randell Humphreys M.D. 03/31/2021 7:49 AM
[2021-03-31] MEDS: PANTOprazole 40 MG TAB PO SCH ×2 (08:17→19:57)
--- NOTE | 2021-03-31 08:29 | CT Scan Report ---
CT OF THE ABDOMEN AND PELVIS WITHOUT CONTRAST CLINICAL HISTORY: Renal failure. Urinary tract infection. COMPARISON STUDY: CT of the abdomen and pelvis January 19, 2021. TECHNIQUE: Axial images of the abdomen and pelvis were obtained without IV contrast. Images were revi ewed in the axial, sagittal, and coronal planes. Automated exposure control was utilized for the gamaliel dy. A dose lowering technique was utilized adhering to the principles of ALARA. FINDINGS: Visualized portions of the lower chest demonstrate marked cardiomegaly. There are trace my ateral pleural effusions. Thoracolumbar spine fusion is noted. No pneumatosis, free air or portal nataliia ous gas is present. Evaluation of the abdomen and pelvis is compromised given lack of contrast and mo tion artifact on this exam. There are calcified granulomas within the spleen. Mild hepatomegaly is no pop. There is no biliary or pancreatic ductal dilatation. There is mild anasarca. There is no hydrone phrosis. No urinary calculi are present. A Linares balloon is present within the bladder which is colla psed. There is bladder wall thickening with adjacent infiltration. There is also infiltration adjacen t to the prostate and the rectum. Prostate is moderately enlarged. There is mild rectal wall thickeni ng. There is no evidence for a bowel obstruction. The appendix is normal. There are gallstones within the gallbladder. There is no adjacent infiltration. There is no biliary or pancreatic ductal dilatat ion. There is extensive plaque of the abdominal aorta without aneurysmal dilatation. No acute fractur e or suspicious lesion is identified within the visualized skeletal structures. IMPRESSION: 1. No urinary calculi or hydronephrosis. Linares balloon within the bladder. Enlarged prostate. Moderat e bladder wall thickening with adjacent infiltration suggestive of cystitis. 2. Mild rectal wall thickening. No bowel obstruction. Normal appendix. 3. Cholelithiasis. No evidence for acute cholecystitis. 4. Marked cardiomegaly. Trace bilateral pleural effusions. ACT 112: Negative or not required by law. Electronically signed by: Randell Humphreys M.D. 03/31/2021 8:28 AM
--- NOTE | 2021-03-31 09:14 | Pharmacy Report ---
Pharmacy Abx Initial Consult - Date of Service March 31, 2021 - Pharmacy Dosing Scope Date of Consult: 03/31/21 Consultation requested by: Khurram Wallace Pharmacy is consulted to initiate VANCOMYCIN/CEFEPIME IV dosing therapy, order appropriate labs and adjust drug dose/frequency. - Subjective The patient is a 80 year old M admitted on 03/31/21 03:00. - Objective Height: 5 ft 10 in Weight: 71.4 kg Vital Signs (Past 12hrs): Vital Signs Temp Pulse Pulse Resp BP Pulse Ox 03/31/21 06:15 71 23 89/65 L 96 03/31/21 06:05 69 20 95/60 L 96 03/31/21 06:03 66 21 89/54 L 96 03/31/21 06:00 65 23 86/52 L 96 03/31/21 05:45 68 26 H 93/56 L 96 03/31/21 05:30 75 28 H 103/61 96 03/31/21 05:15 67 23 89/60 L 97 03/31/21 05:00 75 15 99/57 L 97 03/31/21 04:48 67 19 97/63 L 03/31/21 04:45 71 23 86/55 L 93 03/31/21 04:44 70 23 77/57 L 94 03/31/21 04:38 75 22 91 03/31/21 04:00 75 22 94/51 L 98 03/31/21 03:45 71 22 96/54 L 98 03/31/21 03:38 74 22 93/51 L 96 03/31/21 03:15 69 20 95/54 L 99 03/31/21 03:00 68 18 96/51 L 100 03/31/21 02:55 76 23 90/49 L 100 03/31/21 02:44 72 25 H 80/52 L 100 03/31/21 02:30 74 28 H 82/47 L 97 03/31/21 02:02 79 20 97 03/31/21 02:00 77 28 H 93/56 L 100 03/31/21 01:38 84 L 03/31/21 01:30 98 H 28 H 106/67 100 03/31/21 01:00 76 22 99/67 L 95 03/31/21 00:40 59 L 23 103/56 L 95 03/31/21 00:31 62 18 83/39 L 96 03/30/21 23:45 67 23 97/56 L 97 03/30/21 21:49 36.9 C 73 18 93/59 L 94 Lab Results (24hrs): Laboratory Tests (24 Hours) 03/31/21 03/31/21 03/31/21 05:06 05:06 01:55 WBC 14.18 H Neut # (Auto) 13.17 H Creatinine 3.81 H 3.67 H Est Cr Clr Drug Dosing 15.4 15.9 Procalcitonin 03/30/21 03/30/21 03/30/21 23:15 23:15 23:15 WBC 20.14 H Neut # (Auto) 19.14 H Creatinine 3.85 H Est Cr Clr Drug Dosing 15.2 Procalcitonin 72.39 H Micro Results: 03/31/21 00:14 Urine Culture - Pending Urine,Straight Cath 03/30/21 23:40 Aerobic Blood Culture - Pending Blood Anaerobic Blood Culture - Pending 03/30/21 23:15 Aerobic Blood Culture - Pending Blood Anaerobic Blood Culture - Pending - Risk Factors for Resistance * Hospitalization for 48 hours or more within the past 90 days * Antimicrobial use within the last 90 days : Ceftriaxone (endocarditis) - Assessment & Plan Assessment 80 year old M admitted 03/30 with severe sepsis, likely urinary source. Plan Vancomycin IV * Estimated PK Parameters: Vd 0.7 L/kg, Richard 0.017 hr-1, t1/2 ~41 hr * Loading dose: 1500mg (21 mg/kg) * Goal trough level for SEPSIS/UTI : 15 to 20 mcg/mL * Random level ordered for 04/01/21 with am labs due to MONICO on admission. * Scr on admission = 3.85, baseline SCr from December 2020 is ~1.2. Will adjust vancomycin dose accordingly as renal function improves. Pharmacy will continue to follow and will adjust dose/frequency as necessary. Thank you.
--- NOTE | 2021-03-31 09:46 | Nephrology Consultation ---
Date of Consultation March 31, 2021 Assessment & Plan (1) Acute renal failure: Patient with acute renal failure likely due to ischemic ATN in setting of septic shock. He has fairly normal renal function at baseline 3 months ago. Admission creatinine was 3.8. Patient is oliguric. His blood pressure has been low and patient still requiring Levophed. Electrolytes are stable and no indication for dialysis. UA showing over 30 RBCs supportive of ATN. -We will continue to monitor renal function with daily BMP. -Avoid nephrotoxins and renally dose antibiotics. Will monitor daily for pancho lysis needs (2) Septic shock: Possibly urinary source. Patient is on cefepime and vancomycin per ICU team. Avoid supratherapeutic vancomycin levels which can be nephrotoxic. (3) CHF (congestive heart failure): Patient with valvular heart disease but fairly preserved EF. Chest x-ray showed mild pulmonary edema and cardiomegaly. Will be cautious with IV fluids. Volume status is acceptable. History of Present Illness Reason for Consultation: Acute kidney injury Requesting Physician: Michelle Garcia MD Attending Physician: Arturo Lott MD History of Present Illness This is 80-year-old male with history of diastolic CHF with EF of 55%, bioprosthetic aortic valve, mitral valve repair, A. fib, chronic indwelling Linares catheter due to BPH, recent admission at [facility]. 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 Patient saw Dr. Marmolejo who changed his Linares catheter and subsequently patient developed fevers. Patient is now in ICU requiring Levophed and fluid boluses. He is on vancomycin and cefepime. CT abdomen showed no hydronephrosis or kidney stones. Urinalysis showed over 30 RBCs and over 30 WBCs per high-power field. His lactate was 5 but down to 1.6 today. Admission creatinine was 3.8 from a fairly normal baseline of 1.2 prior to the recent admission. Creatinine remains about the same this morning. Patient is oliguric.He denies any shortness of breath this morning. He is complaining of lack of sleep due to multiple interruptions from providers in the night. Allergies Allergy/AdvReac Type Severity Reaction Status Date / Time No Known Allergies Allergy Unknown Verified 03/30/21 23:14 Home Medications Medication Instructions Recorded Confirmed Type amlodipine 10 mg PO HS 01/17/21 03/30/21 History bupropion HCl 150 mg PO QPM 01/17/21 03/30/21 History escitalopram oxalate 20 mg PO HS 01/17/21 03/30/21 History furosemide 40 mg PO DAILY PRN 01/17/21 03/30/21 History losartan 100 mg PO HS 01/17/21 03/30/21 History tamsulosin 0.4 mg PO HS 01/17/21 03/30/21 History triamterene-hydrochlorothiazid 1 cap PO HS 01/17/21 03/30/21 History acetaminophen [Tylenol Extra 1,000 mg PO Q8H PRN 03/30/21 03/30/21 History Strength] amoxicillin 2,000 mg PO DIRECTED PRN 03/30/21 03/30/21 History aspirin 81 mg PO HS 03/30/21 03/30/21 History cholecalciferol (vitamin D3) 125 mcg PO HS 03/30/21 03/30/21 History [Vitamin D3] finasteride 5 mg PO HS 03/30/21 03/30/21 History sulfamethoxazole-trimethoprim 1 tab PO BID 03/30/21 03/30/21 History Patient History Medical History Acute respiratory failure with hypoxia MONICO (acute kidney injury) Anxiety Atrial fibrillation "on Coumadin" CHF (congestive heart failure) Cirrhosis Depression Dyslipidemia HTN (hypertension) Hyponatremia Prosthetic aortic valve stenosis Pulmonary edema Streptococcal bacteremia Supratherapeutic INR Weakness Surgical History History of aortic valve replacement "2009" History of inguinal hernia repair History of mitral valve replacement "2009" S/P AVR S/P MVR (mitral valve repair) Status post repair of hydrocele Social History Smoking Status: Former smoker Tobacco Type: Cigarettes Do You Dip or Chew Tobacco: No; Hx Alcohol Use: No Hx Substance Use: No Preferred Language: Northern Irish Communication Ability: Effective [employer] Required: No Beliefs That Will Affect Care: None Current Living Situation: Spouse Other Information That Helps Us Care for You: No Feels Safe at Home: Yes Safety Concerns: Feels Safe At This Time Assistive Devices: Glasses, Oxygen - at Night and Walker Review of Systems Review of Systems: All systems reviewed & are unremarkable except as noted in HPI & below Physical Exam Physical Exam: General exam: Appears comfortable, no acute distress HEENT: Pupils are equal and reactive to light Neck: No JVD, neck is supple trachea is midline Respiratory system: Clear breath sounds bilaterally. Gastrointestinal: Abdomen is soft, non distended, non tender, bowel sounds are present CVS: Regular rate and rhythm. No murmurs, rubs or gallops Musculoskeletal: No joint or muscle tenderness Extremities: Non tender, no edema, peripheral pulses are present Neuro: Oriented, no tremors, no focal neurological deficits Skin: No rashes Results & Data ([facility]) Vital Signs (Past 12 Hours) Vital Signs Temp Pulse Pulse Resp BP Pulse Ox 03/31/21 06:15 71 23 89/65 L 96 03/31/21 06:05 69 20 95/60 L 96 03/31/21 06:03 66 21 89/54 L 96 03/31/21 06:00 65 23 86/52 L 96 03/31/21 05:45 68 26 H 93/56 L 96 03/31/21 05:30 75 28 H 103/61 96 03/31/21 05:15 67 23 89/60 L 97 03/31/21 05:00 75 15 99/57 L 97 03/31/21 04:48 67 19 97/63 L 03/31/21 04:45 71 23 86/55 L 93 03/31/21 04:44 70 23 77/57 L 94 03/31/21 04:38 75 22 91 03/31/21 04:00 75 22 94/51 L 98 03/31/21 03:45 71 22 96/54 L 98 03/31/21 03:38 74 22 93/51 L 96 03/31/21 03:15 69 20 95/54 L 99 03/31/21 03:00 68 18 96/51 L 100 03/31/21 02:55 76 23 90/49 L 100 03/31/21 02:44 72 25 H 80/52 L 100 03/31/21 02:30 74 28 H 82/47 L 97 03/31/21 02:02 79 20 97 03/31/21 02:00 77 28 H 93/56 L 100 03/31/21 01:38 84 L 05/08/21 01:30 98 H 28 H 106/67 100 03/31/21 01:00 76 22 99/67 L 95 03/31/21 00:40 59 L 23 103/56 L 95 03/31/21 00:31 62 18 83/39 L 96 03/30/21 23:45 67 23 97/56 L 97 03/30/21 21:49 36.9 C 73 18 93/59 L 94 Laboratory Results 03/31/21 05:06 03/30/21 03/30/21 03/31/21 23:15 23:15 05:06 WBC 20.14 H 14.18 H RBC 3.30 L 2.98 L MCV 96.4 95.3 MCH 33.0 33.6 MCHC 34.3 35.2 RDW Std Deviation 48.7 H 48.3 H RDW Coeff of Luis 13.7 13.8 Plt Count 127 L 103 L MPV 9.8 9.6 Albumin 3.0 L (1) Acute renal failure Acute renal failure type: unspecified Qualified Code(s): N17.9 - Acute kidney failure, unspecified
[2021-03-31] MEDS ORDERED: CALCIUM GLUCONATE 10% 1,000 MG in SODIUM CHLORIDE 0.9% 50 ML IV ONE (11:01)
--- NOTE | 2021-03-31 11:05 | Communication Note ---
Date of Service: March 31, 2021 Patient seen and examined and discussed with bedside critical care nurse. Reviewed with overnight critical care RAFFAELE. Patient has a complicated history and has been seen in both [facility] and here. 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 His hospitalization was complicated by an intracerebral hemorrhage at [facility]. He has an indwelling Linares and presented with signs and symptoms consistent with urosepsis after having the catheter changed out in urology. Is been on antibiotics. He also developed some left hand weakness and paresthesias which have improved but not resolved. He was never on antiepileptic medications for his intracerebral hemorrhage. His left hand is improved but not back to normal. He continues to require vasopressor agents for sepsis but his lactate is cleared. He is currently on cefepime and vancomycin. We will ask pharmacy to assist with dosing given his renal dysfunction. Nephrology consultation has been obtained. We will following his urine output with judicious fluid ministration church of mean arterial pressure. Hopefully will see improvement. Await his blood cultures. If they are positive low threshold for repeating echocardiogram including possibly transesophageal echocardiogram. He has significant orthopedic hardware in place as well which could become secondarily seeded. With regards to his paresthesias of his left hand, will consult neurology. He has abnormalities on his CT scan but based on the written reports from [facility], these appear to be consistent with his prior CT scans. We will see if we get those images pushed for comparison. We will order EEG as the patient is at risk for secondary seizure given the subcortical location of the hemorrhage. We will hold antiepileptic medications until he has been able to be evaluated by neurology. We will keep in the ICU pending improvement in his blood pressure. Additional 40 minutes of critical care time was spent evaluating managing and stabilizing the patient. Coding Level of Care Code Critical Care [email or web address] 30 min Time Spent (min) 45
--- NOTE | 2021-03-31 15:29 | Electrocardiogram Report ---
Test Reason : Blood Pressure : / mmHG Vent. Rate : 065 BPM Atrial Rate : 057 BPM P-R Int : 000 ms QRS Dur : 120 ms QT Int : 452 ms P-R-T Axes : 000 016 127 degrees QTc Int : 470 ms Atrial fibrillation Left ventricular hypertrophy with QRS widening Abnormal ECG When compared with ECG of 17-JAN-2021 19:40, No significant change was found Confirmed by Gonsalo Encarnacion ([id number]) on 03/31/2021 3:29:15 PM Referred By: REFERRED SELF Confirmed By:Gonsalo Encarnacion
--- NOTE | 2021-03-31 17:08 | Hospitalist Progress Note ---
Date of Service March 31, 2021 Assessment & Plan (1) Hypotension: Septic shock Complicated UTI Chronic Linares catheter since last admission Gram-negative bacteremia Blood cultures growing gram-negative Urine culture pending -CT ABD:No urinary calculi or hydronephrosis. Linares balloon within the bladder. Enlarged prostate. Moderate bladder wall thickening with adjacent infiltration suggestive of cystitis. Mild rectal wall thickening. No bowel obstruction. Normal appendix. Cholelithiasis. No evidence for acute cholecystitis. Marked cardiomegaly. Trace bilateral pleural effusions. -Linares catheter changed on 03/31/21 in ED -On pressors--wean off as able -Appreciate ad operations intern help -Continue vancomycin, cefepime Acute renal failure Likely ischemic ATN secondary to septic shock Cr: 3.8 Renally adjust medications as needed Avoid nephrotoxic agents as able Appreciate nephrology input Monitor renal function Lactic acidosis Secondary to above Repeat lactic acid levels improved Hypokalemia Replace electrolytes as needed Monitor Mild troponin elevation Secondary to sepsis Denies any anginal symptoms Left upper extremity paresthesia H/O recent intracranial hemorrhage -CT Head:4.7 x 2.9 cm mixed attenuation abnormality within the left occipital lobe with adjacent hypodensity and loss of chacon-white differentiation with mild mass effect. This may reflect an infarct with subacute hemorrhage. A neoplastic process is within the differential although considered less likely. An MRI of the brain with and without contrast is recommended. If MRI is not possible, short-term follow-up head CT in 24 hours is recommended. Suspected age- indeterminate infarcts within the bilateral cerebellar hemispheres. 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 Trace bilateral pleural effusions. Completed antibiotic therapy Monitor volume status Resume diuretics when appropriate Atrial fibrillation Recently discontinued anticoagulation secondary to intracranial hemorrhage Rate controlled Esophageal varices Esophagitis Continue pantoprazole BPH Continue finasteride H/O PVD Past tobacco use Aspirin on hold DVT Px: SCDs Re thrombocytopenia, hematuria, ICH Code Status DNR/DNI Admission and Anticipated Discharge Date Admission Date: March 31, 2021 Subjective Patient is seen and examined at bedside States having left upper extremity weakness, paresthesia Denies chest pain, shortness of breath, dizziness, nausea, abdominal pain Currently on pressors Offers no other complaints Review of Systems Review of Systems: All systems reviewed & are unremarkable except as noted in HPI & below Physical Exam Physical Exam: Physical Exam: Vitals signs as noted above General Appearance:Moderately built and nourished, no apparent distress, chronically ill-appearing Head: normocephalic, Atraumatic Eyes: normal inspection, EOMI Neck: supple, Trachea midline Respiratory/Chest: Normal breath sounds, CTA, No accessory muscle use Cardiovascular: S1, S2, + murmur Abdomen/GI:Soft, Non tender, Bowel sounds present, +distended Extremities/Musculoskeletal:normal inspection, Trace edema Neurologic/Psych:AAOX3, grossly no focal neurological deficits Skin: normal color, warm Results & Data Results & Data ([facility]) Vital Signs (Past 12 Hours) Vital Signs Temp Pulse Resp BP Pulse Ox 03/31/21 11:45 68 21 110/72 96 03/31/21 11:31 68 25 H 104/83 92 03/31/21 11:30 69 26 H 94 03/31/21 11:15 64 27 H 101/59 L 96 03/31/21 11:00 67 25 H 101/67 95 03/31/21 10:45 67 26 H 109/62 97 03/31/21 10:30 62 29 H 112/59 L 95 03/31/21 10:15 65 21 101/59 L 97 03/31/21 10:00 69 25 H 103/62 95 03/31/21 09:45 69 24 97/64 L 96 03/31/21 09:30 62 23 103/62 96 03/31/21 09:15 64 27 H 100/63 96 03/31/21 09:00 64 22 99/61 L 97 03/31/21 08:46 69 26 H 100/63 97 03/31/21 08:30 61 26 H 98/62 L 97 03/31/21 08:18 67 21 85/57 L 98 03/31/21 08:15 68 25 H 85/52 L 98 03/31/21 08:00 36.7 C 69 25 H 90/56 L 96 03/31/21 07:45 70 25 H 100/63 97 03/31/21 07:31 76 19 114/60 97 03/31/21 07:30 72 20 94 03/31/21 07:15 67 29 H 96/63 L 94 03/31/21 07:00 75 27 H 96/61 L 98 03/31/21 06:45 75 29 H 96/60 L 97 03/31/21 06:30 72 30 H 96/66 L 91 03/31/21 06:28 68 22 95/60 L 93 03/31/21 06:15 71 23 89/65 L 96 03/31/21 06:05 69 20 95/60 L 96 03/31/21 06:03 66 21 89/54 L 96 03/31/21 06:00 65 23 86/52 L 96 03/31/21 05:45 68 26 H 93/56 L 96 03/31/21 05:30 75 28 H 103/61 96 03/31/21 05:15 67 23 89/60 L 97 03/31/21 05:00 75 15 99/57 L 97 03/31/21 04:48 67 19 97/63 L 03/31/21 04:45 71 23 86/55 L 93 03/31/21 04:44 70 23 77/57 L 94 Laboratory Results Short CBC 03/30/21 03/31/21 Range/Units 23:15 05:06 WBC 20.14 H 14.18 H (4.8-10.8) K/uL Hgb 10.9 L 10.0 L (14.0-18.0) g/dL Hct 31.8 L 28.4 L (42-52) % Plt Count 127 L 103 L (130-400) K/uL BMP 03/30/21 03/31/21 03/31/21 23:15 01:55 05:06 Sodium 132 L 132 L 132 L Potassium 3.9 3.8 3.4 L Chloride 96 L 99 99 Carbon Dioxide 25 20 L 26 BUN 78 H 82 H 84 H Creatinine 3.85 H 3.67 H 3.81 H Glucose 123 H 133 H 123 H Calcium 9.5 8.4 L 8.2 L Cardiac Enzymes 03/30/21 03/31/21 Range/Units 23:15 01:55 Troponin I 0.484 H* 0.480 H* (0-0.045) ng/ml Liver Function 03/30/21 Range/Units 23:15 Total Bilirubin 0.9 (0.2-1) mg/dl AST 26 (15-37) U/L ALT 18 (12-78) U/L Alkaline Phosphatase 97 (45-117) U/L Albumin 3.0 L (3.4-5.0) gm/dl Urine 03/31/21 Range/Units 00:14 Urine Color Dark Yellow Urine Appearance Turbid A (Clear) Urine pH 5.0 (4.5-7.5) Ur Specific [place] 1.025 (1.000-1.030) Urine Protein 2+ H (Negative) Urine Glucose (UA) Negative (Negative)
[2021-03-31] MEDS: ESCITALOPRAM OXALATE 20 MG TAB PO SCH (19:56)
[2021-03-31] MEDS: TAMSULOSIN HCL 0.4 MG CAP PO SCH (19:57)
[2021-03-31] MEDS: FINASTERIDE 5 MG TAB PO SCH (19:57)
[2021-03-31 21:05] LABS: BUN Creatinine Ratio 25.9 (10-20); Calcium 8.4 mg/dl (8.5-10.1); Creatinine Clr Calc Pharmacy 17.5 ml/min; Est GFR (African American) 18.4; Est GFR (Non-African American) 15.9; Magnesium 2.3 mg/dl (1.8-2.4); Potassium 3.4 mmol/L (3.5-5.1)
[2021-03-31 21:06] LABS: Phosphorus 2.4 mg/dl (2.5-4.9)
[2021-03-31] MEDS ORDERED: POTASSIUM PHOS 3 MMOL/1 ML INFUSION IV STA (21:40)
[2021-03-31] MEDS: oxyCODONE HCL IR 5 MG TAB (IMMEDIATE RELEASE) PO PRN (21:58)
[2021-03-31] MEDS ORDERED: POTASSIUM PHOSPHATE 21 MMOL in SODIUM CHLORIDE 0.9% 500 ML IV ONE (22:00)
[2021-04-01] MEDS: ACETAMINOPHEN 325 MG TAB PO PRN ×2 (00:33→20:49)
[2021-04-01 04:12] LABS: Hematocrit (blood only) 26.8 % (42-52); Mean Corpuscular Hgb Conc 33.6 g/dL (32-36); Mean Corpuscular Volume 98.2 fL (80-100); Mean Platelet Volume 10.3 fL (7.4-10.4); Platelet Count 101 K/uL (130-400); RDW Coefficient of Variation 14.1 % (11.5-14.5); RDW Standard Deviation 49.9 fL (36.4-46.3); Red Blood Count 2.73 M/uL (4.7-6.1); White Blood Count 14.97 K/uL (4.8-10.8)
[2021-04-01] MEDS: ALBUMIN 25% 12.5 GM/50 ML VIAL IV SCH ×2 (04:14→10:53)
[2021-04-01] MEDS: CEFEPIME 1,000 MG in SYRINGE 0 ML IV SCH (05:13)
[2021-04-01 08:21] LABS: BUN Creatinine Ratio 27.3 (10-20); Calcium 8.6 mg/dl (8.5-10.1); Est GFR (African American) 20.3; Est GFR (Non-African American) 17.6; Magnesium 2.5 mg/dl (1.8-2.4); Potassium 3.5 mmol/L (3.5-5.1)
[2021-04-01 08:25] LABS: Phosphorus 3.6 mg/dl (2.5-4.9)
[2021-04-01] MEDS: PANTOprazole 40 MG TAB PO SCH ×2 (08:31→20:48)
[2021-04-01] MEDS ORDERED: VANCOMYCIN HCL 1,250 MG in SODIUM CHLORIDE 0.9% 250 ML IV STA (08:39)
--- NOTE | 2021-04-01 09:33 | Pharmacy Report ---
Pharmacy Abx Dose Short Note - Date of Service April 01, 2021 - Assessment & Plan Assessment 80 year old M receiving IV Vancomycin and Cefepime for treatment of sepsis secondary to complicated UTI (chronic Linares) Day # 3 of antimicrobial therapy. * Vancomycin being dosed prn based on random levels given MONICO * sCr improving, but still very impaired. sCr = 3.15 mg/dL today with CrCl ~19 mL/min * Last Vancomycin dose of 1500mg IV was given yesterday 03/31 @ 0600 * Of note, weight discrepancy noted in the computer (chair weight vs. bed scale); given critical illness and subtherapeutic level, choose to dose aggressively Plan Vancomycin * Random level of 11.6 mcg/mL is subtherapeutic. Random level was obtained <22 hours after last dose. Patient appears to be eliminating Vancomycin faster than anticipated despite MONICO * Give Vancomycin 1250mg (~14.5mg/kg) IV x 1 now * Goal trough level for UTI : 15 to 20 mcg/mL * Random level ordered for: 04/02/21 with AM labs * Continue dosing Vancomycin prn random levels due to changing renal function Pharmacy will continue to follow and will adjust dose/frequency as necessary. Thank you.
--- NOTE | 2021-04-01 10:05 | Nephrology Progress Note ---
Date of Service April 01, 2021 Assessment & Plan (1) Acute renal failure: Patient with acute renal failure likely due to ischemic ATN in setting of septic shock. He has fairly normal renal function at baseline 3 months ago. Admission creatinine was 3.8. Patient is now making urine about 1.1 L in the past 24 hours. His blood pressure was low but now stable. Electrolytes are stable and no indication for dialysis. UA showing over 30 RBCs supportive of ATN. -We will continue to monitor renal function with daily BMP. -Avoid nephrotoxins and renally dose antibiotics. Will monitor daily for dialysis needs (2) Septic shock: Possibly urinary source. Patient is on cefepime and vancomycin per ICU team. Avoid supratherapeutic vancomycin levels which can be nephrotoxic. (3) CHF (congestive heart failure): Patient with valvular heart disease but fairly preserved EF. Chest x-ray showed mild pulmonary edema and cardiomegaly. Will be cautious with IV fluids. Volume status is acceptable. Admission and Anticipated Discharge Date Admission Date: March 31, 2021 Subjective Seen in follow-up for acute renal failure. He feels about the same. No shortness of breath. He had some abdominal discomfort while eating breakfast. No leg swelling. He made 1.1 L of urine yesterday Review of Systems Review of Systems: All systems reviewed & are unremarkable except as noted in HPI & below Physical Exam Physical Exam: General exam: Appears comfortable, no acute distress HEENT: Pupils are equal and reactive to light Neck: No JVD, neck is supple trachea is midline Respiratory system: Clear breath sounds bilaterally. Gastrointestinal: Abdomen is soft, non distended, non tender, bowel sounds are present CVS: Regular rate and rhythm. No murmurs, rubs or gallops Musculoskeletal: No joint or muscle tenderness Extremities: Non tender, no edema, peripheral pulses are present Neuro: Oriented, no tremors, no focal neurological deficits Skin: No rashes Results & Data ([facility]) Vital Signs (Past 12 Hours) Vital Signs Temp Pulse Resp BP Pulse Ox 04/01/21 09:00 57 L 24 100/60 92 04/01/21 08:33 55 L 16 94 04/01/21 08:31 36.9 C 56 L 20 96/57 L 95 04/01/21 08:30 56 L 19 97/58 L 94 04/01/21 08:00 36.9 C 67 24 100/59 L 94 04/01/21 07:30 62 23 91 04/01/21 07:00 60 23 107/63 93 04/01/21 06:30 63 22 90 04/01/21 06:00 59 L 26 H 107/65 90 04/01/21 05:30 65 24 87 L 04/01/21 05:00 59 L 21 107/72 94 04/01/21 04:30 63 24 95 04/01/21 04:00 61 25 H 115/67 94 04/01/21 03:55 36.8 C 04/01/21 03:30 63 24 95 04/01/21 03:00 67 26 H 112/63 96 04/01/21 02:30 66 28 H 93 04/01/21 02:00 65 30 H 102/57 L 94 04/01/21 01:30 71 26 H 94 04/01/21 01:00 72 32 H 101/59 L 93 04/01/21 00:48 77 04/01/21 00:30 77 23 94 04/01/21 00:13 38.9 C H 04/01/21 00:00 75 33 H 104/59 L 94 03/31/21 23:30 73 35 H 89 L 03/31/21 23:22 36.6 C 03/31/21 23:00 69 29 H 118/67 94 03/31/21 22:30 69 27 H 93 Laboratory Results 04/01/21 07:42 03/31/21 04/01/21 04/01/21 20:29 03:51 03:51 WBC 14.97 H RBC 2.73 L MCV 98.2 MCH 33.0 MCHC 33.6 RDW Std Deviation 49.9 H RDW Coeff of Luis 14.1 Plt Count 101 L MPV 10.3 Phosphorus 2.4 L Cancelled 04/01/21 07:42 WBC RBC MCV MCH MCHC RDW Std Deviation RDW Coeff of Luis Plt Count MPV Phosphorus 3.6 D (1) Acute renal failure Acute renal failure type: unspecified Qualified Code(s): N17.9 - Acute kidney failure, unspecified
--- NOTE | 2021-04-01 10:49 | Critical Care Progress Note ---
Date of Service April 01, 2021 Assessment & Plan (1) Septic shock: Reason Critically Ill: 80-year-old male presents to the ICU with septic shock likely from urinary source, requiring vasopressor support. Neuro - Recent intracranial hemorrhage patient underwent medical management with hypertonic saline at [place] and had a diagnostic cerebral injury on 01/25 which was without evidence of in tracranial vascular malformation, aneurysm, vasospasm, and other intracranial vascular abnormality. Coumadin and heparin were stopped at this time. Likely attributed to supratherapeutic INR. Continue to hold anticoagulation -CT head demonstrated area of edema in the left posterior temporal and o ccipital lobes, would be consistent with recent injury. No evidence of midline shift. Depression: Continue Wellbutrin, Lexapro Cardiac - Septic shockpatient presents with hypotension with high suspicion for septic etiology given elevated WBC, fevers, elevated procalcitonin and lactate, and recent hospitalization for ongoing sepsis -See ID treatment below -Continue with vasopressor support as needed -2D echo 04/01/2020: EF 40-45%, LA severely dilated, bioprosthetic aortic valve with severely calcified leaflets PASP 38. No valvular vegetations. -DICK at [place] negative for vegetation, underent 6-week antibiotic coarse for presumed treatment -Hold antihypertensives and diuretics at this time CHFpatient with history of valvular heart failure and underwent MVR and AVR in 2009. -2D echo 04/01/2020: 40 to 45% with severe prosthetic aortic stenosis -Holding diuretics due to hypotension -Careful with IV fluids given pulmonary congestion A. fibnot anticoagulated, currently rate controlled -History of pacemaker -Continuous monitoring on telemetry Respiratory - Hypoxialikely secondary to pulmonary congestion given severe aortic stenosis, however cannot rule out infectious process at this time -Currently maintaining oxygen saturation on 2 L nasal cannula, lungs clear to auscultation -Chest x-ray with bilateral patchy opacifications consistent with pulmonary edema -We will hold on diuretics for the time being as he is currently hypotensive with significant MONICO -Continuous monitor on pulse ox -Nebs as needed -Wean O2 as tolerated GI - Varices underwent EGD prior to DICK on recent hospitalization at [place]. Found to have small esophageal varices, LA grade a esophagitis, and hematin in the gastric body. Was started on Prilosec daily. Continue PPI RENAL/LYTES - AKIpatient with elevated creatinine 3.8, with prior baseline 1.05 -No obstruction/hydronephrosis noted on CT imaging -Suspect this is likely attributed to ATN as patient presented with hypotension in the setting of sepsis -Started on Levophed to maintain maps greater than 65 -Avoid nephrotoxins and renally adjust medications -Replete electrolytes as indicated. Patient is currently without any electrolyte abnormalities. -Nephrology on board -Monitor urine output closely - Linares patient recently had chronic Linares inserted following prior admission approximately 1 month ago in which he was unable to void. He follows with urology outpatient and recently had Linares changed on 03/26/21 -Monitor strict I's and O's BPHFoley cath -Continue Proscar/Flomax ENDO - No history of diabetes or thyroid disease, ICU hyperglycemic protocol HEME - Monitor hemoglobin. Transfuse if hemoglobin less than 7 ID - Sepsis with gram-negative bacteremia -Likely urinary source as patient had positive UA, cystitis demonstrated on CT imaging and patient now has chronic Linares due to BPH. -Urine culture 03/31/21 growing gram-negative bacilli as well as gram-positive cocci, follow-up sensitivities -December admission with positive blood cultures for Streptococcus mitis/oralis. With some intermittent resistance to Zosyn. -Currently on cefepime, vancomycin. Blood cultures and urine culture pending. --Prophylaxis VTE: IPC's, hold any anticoagulation for recent intracranial hemorrhage GI: Protonix Lines: Right IJ Diet: Cardiorenal CODE STATUS: DNR/DNI Plan: In/out: +1945, urine output 1350 Urine culture blood culture growing gram-negative bacilli Source is likely urinary. Linares was changed a week ago. I do not think there is need to change Linares again Continue with cefepime. Follow-up sensitivities Patient's blood pressure is still on the softer side. Continue to monitor in the ICU with low threshold to resume Levophed. Patient's creatinine is trending down. Patient is making good urine. Based on his volume status will consider giving 1 dose of Lasix later today. Potassium being replaced I have personally spent 41 minutes of critical care time in the direct management of this patient. This is a life/limb threatening event. This includes time spent evaluating patient, direct bedside care, chart review, placing orders, interpretation of diagnostic studies, discussion with consultants, patient, and family members, as well as other required patient management activities. This time is exclusive of all separately billable procedures, and teaching time and separate from and in addition to any other critical care service time. Please note the above document was generated using voice recognition software. It may contain grammatical, syntax or spelling errors. (2) Acidosis, lactic: (3) Acute pyelonephritis: (4) Acute renal failure: (5) Acute respiratory failure with hypoxia: (6) History of mitral valve replacement: (7) History of aortic valve replacement: (8) Anxiety: (9) Depression: (10) CHF (congestive heart failure): (11) Atrial fibrillation: (12) MONICO (acute kidney injury): Admission and Anticipated Discharge Date Admission Date: March 31, 2021 Subjective Patient seen and examined at bedside. No acute distress, no adverse events overnight. Patient denies any dizziness, no headache, no nausea, no vomiting. No shortness of breath. He had breakfast just prior to me examining him. Bowel movement yesterday. He states that he feels better as compared to coming to the Review of Systems Review of Systems: All systems reviewed & are unremarkable except as noted in Subjective Physical Exam Physical Exam: Constitutional: No acute distress HEENT: EOMI, PERRLA Respiratory system: Decreased air entry bilaterally, no wheeze, no rhonchi, mild crackles bilateral lower lobes CVS: S1-S2 positive, positive 3 out of 6 systolic murmur appreciated best at aorta Abdomen: Soft, nontender, nondistended, positive bowel sounds x4 Extremities: +2 pulses bilaterally radialis/ dorsalis pedis, no cyanosis, no edema Neuro: Awake alert oriented x3 Psych: Normal mood and affect G/U: Positive Linares Skin: no rashes, warm and dry Lymphatic: no cervical or axillary lymphadenopathy Results & Data Results & Data ([facility]) Vital Signs (Past 12 Hours) Vital Signs Temp Pulse Resp BP Pulse Ox 04/01/21 09:00 57 L 24 100/60 92 04/01/21 08:33 55 L 16 94 04/01/21 08:31 36.9 C 56 L 20 96/57 L 95 04/01/21 08:30 56 L 19 97/58 L 94 04/01/21 08:00 36.9 C 67 24 100/59 L 94 04/01/21 07:30 62 23 91 04/01/21 07:00 60 23 107/63 93 04/01/21 06:30 63 22 90 04/01/21 06:00 59 L 26 H 107/65 90 04/01/21 05:30 65 24 87 L 04/01/21 05:00 59 L 21 107/72 94 04/01/21 04:30 63 24 95 04/01/21 04:00 61 25 H 115/67 94 04/01/21 03:55 36.8 C 04/01/21 03:30 63 24 95 04/01/21 03:00 67 26 H 112/63 96 04/01/21 02:30 66 28 H 93 04/01/21 02:00 65 30 H 102/57 L 94 04/01/21 01:30 71 26 H 94 04/01/21 01:00 72 32 H 101/59 L 93 04/01/21 00:48 77 04/01/21 00:30 77 23 94 04/01/21 00:13 38.9 C H 04/01/21 00:00 75 33 H 104/59 L 94 03/31/21 23:30 73 35 H 89 L 03/31/21 23:22 36.6 C 03/31/21 23:00 69 29 H 118/67 94 04/01/21 03:51 04/01/21 07:42 Coding Level of Care Code Critical Care 1st 30-74 mins Diagnoses Septic shock A41.9; R65.21 Acidosis, lactic E87.2 Acute pyelonephritis N10 Acute renal failure N17.9 Acute renal failure type: unspecified Acute respiratory failure with hypoxia J96.01 History of mitral valve replacement Z95.2 History of aortic valve replacement Z95.2 Anxiety F41.9 Depression F32.9 CHF (congestive heart failure) I50.9 Atrial fibrillation I48.91 MONICO (acute kidney injury) N17.9 Time Spent (min) 41 (1) Acute renal failure Acute renal failure type: unspecified Qualified Code(s): N17.9 - Acute kidney failure, unspecified
[2021-04-01] MEDS: POTASSIUM CHLORIDE / WTR 20 MEQ/100 ML PLCT IV SCH ×2 (11:02→13:51)
--- NOTE | 2021-04-01 12:23 | Consultation Report ---
DATE OF CONSULTATION: 04/01/2021 REASON FOR CONSULTATION: New left arm weakness. HISTORY OF PRESENT ILLNESS: The patient is an 80-year-old ambidextrous male with a history of an intracranial hemorrhage in early January managed with hypertonic saline. Diagnostic angiography showed no evidence of a vascular malformation. Coumadin and heparin were stopped and the hemorrhage was attributed likely to supratherapeutic INR. Anticoagulation has been held and aspirin has been resumed. At that hospitalization, the patient was septic with positive blood cultures. No evidence of bacterial endocarditis was found, i.e., no vegetations were noted and the patient has been treated for 6 weeks with antibiotics. On this background for several days, the patient has felt generally weak, somewhat lightheaded and noted poor urinary output in his Linares catheter. After the patient had been seen by Urology, he was noted to be febrile and the PCP was contacted after complaints of fever, poor appetite and weakness. He was brought to the hospital. The patient was noted to be hypotensive with decreased O2 sats. While hospitalized approximately 2 days ago, he noted left upper extremity weakness and some numbness in the dorsum of his left hand. There was no accompanying headache. No visual loss, change in speech or swallowing or symptoms in the left lower extremity. His CT of the head was notable for a 4.7 x 2.9 cm mixed attenuation abnormality within the left occipital lobe with adjacent hypodensity and loss of chacon-white differentiation with mild mass effect. This may reflect an infarct with a subacute hemorrhage and neoplastic processes within the differential, although considered less likely. MRI of the brain with and without contrast is recommended. If MRI is not possible a short-term followup with CT of the head in 24 hours is recommended, suspected age indeterminate infarcts within the bilateral cerebellar hemispheres. LABORATORY DATA: Notable for a white count of 15, H and H of 9/26.8. His ABG yesterday 7.45, 26, 88, bicarbonate 18, O2 sat 97. Serum sodium today 135, BUN 86 and creatinine 3.15, glucose 134, magnesium 2.5. Troponin mildly elevated. Urinalysis on admission notable for +2 protein, positive ketones, 3+ blood, 2+ bilirubin, positive urobilinogen, positive leukocyte esterase. Urine culture is notable for gram-negative bacilli, gram-positive cocci. Blood culture is notable for gram-negative bacilli. PAST MEDICAL HISTORY: Aortic valve replacement, esophageal varices, cirrhosis, BPH with chronic indwelling Linares, renal insufficiency. The aforementioned intracranial hemorrhage or hemorrhagic infarction. Congestive heart failure, anxiety, depression, dyslipidemia, hyponatremia, pulmonary edema, streptococcal bacteremia, weakness. SURGICAL HISTORY: Aortic valve replacement, inguinal hernia, mitral valve replacement, status post repair of a hydrocele. SOCIAL HISTORY: Former smoker, does not drink alcohol. HOME MEDICATIONS: Amlodipine, bupropion, escitalopram, furosemide, losartan, tamsulosin, triamterene/hydrochlorothiazide, Tylenol, amoxicillin, aspirin; the amoxicillin is as directed p.r.n., vitamin D, finasteride and Bactrim. ALLERGIES: None known. The patient was admitted in septic shock with hypotension and hypoxemia. PHYSICAL EXAMINATION: VITAL SIGNS: Blood pressure 130/71, pulse 60, respirations 25, temperature 36.9, O2 sat 94%. GENERAL: The patient is awake and alert. He is an excellent historian. He is oriented x3. NECK: There are no carotid bruits. HEART: Irregularly irregular. There is a murmur heard best over the left sternal border. NEUROLOGIC: Pupils are equal, round and reactive to light. I could not reliably visualize the optic nerves. There is a heteronymous hemianopia on the right. Motility is normal. There is no facial asymmetry and speech is nondysarthric. Motor: There is normal bulk and tone. There is weakness of the left wrist extensors, finger extensors, arranger assembler strength, APB, FDI, ADM. Biceps is about 3, triceps about 2, deltoid about 3+. There is a left drift and mildly decreased left rapid alternating movements. Lower extremity strength appears symmetric. Reflexes were symmetric. Ankle jerks reduced. Toes are downgoing. No sensory loss to light touch. There is dystaxia on left [id number]. Nvpq-[id number] is normal. IMPRESSION: This patient with atrial fibrillation. 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 I cannot entirely exclude that it was a primary hemorrhage, although it seems to respect the distribution left [employer]. The patient has new ataxia and weakness of the left upper extremity without any difficulty with right/left confusion or denial. This is likely a small vessel infarction. PLAN: MRI of the patient able, carotid ultrasound, consider repeat DICK given the setting of recurrent sepsis. Further decision will be made based on the results of the imaging. amyloid angiopathy with within the differential which complicates the decision regarding anticoagulants. GRADY Dior MD [facility]
[2021-04-01] MEDS ORDERED: LORazepam 0.5 MG TAB PO STA ×2 (13:37→13:39)
--- NOTE | 2021-04-01 16:18 | Hospitalist Progress Note ---
Date of Service April 01, 2021 Assessment & Plan (1) Hypotension: Septic shock Complicated UTI Chronic Linares catheter since last admission Gram-negative bacteremia Blood cultures growing gram-negative Urine culture: Gram-negative bacilli, gram-positive cocci -CT ABD:No urinary calculi or hydronephrosis. Linares balloon within the bladder. Enlarged prostate. Moderate bladder wall thickening with adjacent infiltration suggestive of cystitis. Mild rectal wall thickening. No bowel obstruction. Normal appendix. Cholelithiasis. No evidence for acute cholecystitis. Marked cardiomegaly. Trace bilateral pleural effusions. -Linares catheter changed on 03/31/21 in ED -Weaned off of pressors -Appreciate machine hoop maker helper help -Continue vancomycin, cefepime for now -Antibiotics to be adjusted based on culture results Acute renal failure Likely ischemic ATN secondary to septic shock Cr: 3.8>3.15 Renally adjust medications as needed Avoid nephrotoxic agents as able Appreciate nephrology input Monitor renal function Lactic acidosis Secondary to above Repeat lactic acid levels improved Hypokalemia Replace electrolytes as needed Monitor Mild troponin elevation Secondary to sepsis Denies any anginal symptoms Left upper extremity paresthesia H/O recent intracranial hemorrhage -CT Head:4.7 x 2.9 cm mixed attenuation abnormality within the left occipital lobe with adjacent hypodensity and loss of chacon-white differentiation with mild mass effect. This may reflect an infarct with subacute hemorrhage. A neoplastic process is within the differential although considered less likely. An MRI of the brain with and without contrast is recommended. If MRI is not possible, short-term follow-up head CT in 24 hours is recommended. Suspected age- indeterminate infarcts within the bilateral cerebellar hemispheres. -EEG, Carotid USD pending -Appreciate Neurology Input -MRI Brain pending Chronic systolic heart failure H/O Bioprosthetic AVR/mitral valve repair H/O prosthetic valve stenosis Recent Streptococcus Endocarditis CXR:Mild pulmonary edema, slightly improved since prior exam. Trace bilateral pleural effusions. Completed antibiotic therapy Monitor volume status Resume diuretics when appropriate Atrial fibrillation Recently discontinued anticoagulation secondary to intracranial hemorrhage Rate controlled Esophageal varices Esophagitis Continue pantoprazole BPH Continue finasteride H/O PVD Past tobacco use Aspirin on hold DVT Px: SCDs Re thrombocytopenia, hematuria, ICH Code Status DNR/DNI Admission and Anticipated Discharge Date Admission Date: March 31, 2021 Subjective Patient is seen and examined at bedside Blood pressure stable off pressors Discussed with machine hoop maker helper Patient continues to have left upper extremity weakness Denies chest pain, shortness of breath, dizziness, nausea, abdominal pain Offers no other complaints Review of Systems Review of Systems: All systems reviewed & are unremarkable except as noted in HPI & below Physical Exam Physical Exam: Physical Exam: Vitals signs as noted above General Appearance:Moderately built and nourished, no apparent distress, chronically ill-appearing Head: normocephalic, Atraumatic Eyes: normal inspection, EOMI Neck: supple, Trachea midline Respiratory/Chest: Normal breath sounds, CTA, No accessory muscle use Cardiovascular: S1, S2, + murmur Abdomen/GI:Soft, Non tender, Bowel sounds present, +distended Extremities/Musculoskeletal:normal inspection, Trace edema Neurologic/Psych:AAOX3, grossly no focal neurological deficits Skin: normal color, warm Results & Data Results & Data ([facility]) Vital Signs (Past 12 Hours) Vital Signs Temp Pulse Resp BP Pulse Ox 04/01/21 11:01 60 25 H 130/71 94 04/01/21 11:00 58 L 23 130/71 94 04/01/21 10:30 61 23 93 04/01/21 10:00 56 L 26 H 97/63 L 93 04/01/21 09:30 60 21 89 L 04/01/21 09:00 57 L 24 100/60 92 04/01/21 08:33 55 L 16 94 04/01/21 08:31 36.9 C 56 L 20 96/57 L 95 04/01/21 08:30 56 L 19 97/58 L 94 04/01/21 08:00 36.9 C 67 24 100/59 L 94 04/01/21 07:30 62 23 91 04/01/21 07:00 60 23 107/63 93 04/01/21 06:30 63 22 90 04/01/21 06:00 59 L 26 H 107/65 90 04/01/21 05:30 65 24 87 L 04/01/21 05:00 59 L 21 107/72 94 04/01/21 04:30 63 24 95 Laboratory Results Short CBC 04/01/21 Range/Units 03:51 WBC 14.97 H (4.8-10.8) K/uL Hgb 9.0 L (14.0-18.0) g/dL Hct 26.8 L (42-52) % Plt Count 101 L (130-400) K/uL BMP 03/31/21 04/01/21 04/01/21 20:29 03:51 07:42 Sodium 133 L Cancelled 135 L Potassium 3.4 L Cancelled 3.5 Chloride 99 Cancelled 101 Carbon Dioxide 24 Cancelled 24 BUN 89 H Cancelled 86 H Creatinine 3.42 H D Cancelled 3.15 H Glucose 128 H Cancelled 134 H Calcium 8.4 L Cancelled 8.6 04/01/21 12:27 Sodium Potassium Chloride Carbon Dioxide BUN Creatinine Glucose 152 H Calcium
--- NOTE | 2021-04-01 16:29 | Magnetic Resonance Report ---
MRI OF THE BRAIN WITHOUT IV CONTRAST CLINICAL HISTORY: Strokelike symptoms. COMPARISON STUDY: CT of the brain dated 03/31/2021 and 03/08/2015. TECHNIQUE: MRI of the brain was performed utilizing various T1 and T2-weighted sequences in the axial , sagittal, and coronal planes. IV contrast was not administered for this examination. Note that the examination is suboptimal without IV contrast. FINDINGS: Brain parenchyma: Again seen is a large focus of signal abnormality identified in the left occipital lobe, measuring approximately 4 x 5 x 2.5 cm. This is heterogeneous, with significant T1 and T2 hyper intensity as well as a hemosiderin ring and associated restricted diffusion. There is associated belén a within the left occipital lobe with effacement of overlying cortical sulci. No midline shift is see n. There is an additional 1.5 cm focus of restricted diffusion the high right parietal lobe, as well as a punctate focus of restricted diffusion in the left centrum semiovale. These likely represent acu te to subacute infarcts. There is a 1.0 cm focus of hemosiderin deposition in the left cerebellar hem isphere. Numerous (less than 10) additional tiny foci of hemosiderin deposition are identified throug hout the brain on the gradient sequence. No extra-axial fluid collection is seen. The cerebellar tons ils are normal in configuration. A small chronic lacunar infarct is noted in the right cerebellar hem isphere. Ventricles, sulci, and cisterns: Prominent secondary to involutional change. See above. Pituitary and sella: Unremarkable. Intracranial vasculature: Normal flow voids are maintained at the skull base. Orbits: The bony orbits are grossly intact. Orbital contents are normal in appearance. Sinuses and mastoids: Clear. Calvarium: Unremarkable. Cervical cord: Partially visualized cervical spinal cord is normal in morphology and signal intensity . IMPRESSION: 1. Again seen is a large focus of signal abnormality in the left occipital lobe as detailed above. Th is likely represents a large infarct with hemorrhagic conversion. Underlying mass lesion or vascular abnormality is considered less likely but not excluded. Continued CT follow-up is recommended. 2. An additional small focus of restricted diffusion is seen within the high right parietal lobe, and there is a punctate focus of restricted diffusion in the left centrum semiovale. These likely repres ent additional foci of acute to subacute ischemia. 3. There is a 1.0 cm focus of hemosiderin deposition in the left cerebellar hemisphere. This could re present a site of previous hemorrhage or possibly a cavernoma. 4. There are numerous (less than 10) additional punctate foci of hemosiderin deposition seen on the g radient sequence. Underlying amyloid angiopathy could potentially have this appearance. ACT 112: Negative or not required by law. Electronically signed by: Rome Mendoza M.D. 04/01/2021 4:28 PM
[2021-04-01] MEDS: ICU ELECTROLYTE REPLACEMENT PROTOCOL SCH (16:44)
[2021-04-01] MEDS: TAMSULOSIN HCL 0.4 MG CAP PO SCH (20:48)
[2021-04-01] MEDS: ESCITALOPRAM OXALATE 20 MG TAB PO SCH (20:48)
[2021-04-01] MEDS: FINASTERIDE 5 MG TAB PO SCH (20:48)
[2021-04-01] MEDS: oxyCODONE HCL IR 5 MG TAB (IMMEDIATE RELEASE) PO PRN (22:33)
[2021-04-01] MEDS ORDERED: SODIUM CHLORIDE 0.9% NEBU SOLN 3 ML NEB STA (22:53)
[2021-04-01] MEDS ORDERED: POTASSIUM CHLORIDE 10 MEQ TABCR PO STA (22:56)
[2021-04-02] MEDS: CEFEPIME 1,000 MG in SYRINGE 0 ML IV SCH (05:20)
[2021-04-02 06:24] LABS: Hematocrit (blood only) 28.2 % (42-52); Hemoglobin 9.6 g/dL (14.0-18.0); Mean Corpuscular Hemoglobin 32.9 pg (25-34); Mean Corpuscular Volume 96.6 fL (80-100); RDW Coefficient of Variation 14.3 % (11.5-14.5); RDW Standard Deviation 50.1 fL (36.4-46.3); Red Blood Count 2.92 M/uL (4.7-6.1); White Blood Count 18.77 K/uL (4.8-10.8)
[2021-04-02 06:49] LABS: Mean Platelet Volume 10.4 fL (7.4-10.4); Platelet Count 94 K/uL (130-400); Platelet Estimate Decreased (Normal)
--- NOTE | 2021-04-02 06:52 | XRay Report ---
XR chest 1V portable CLINICAL HISTORY: Shortness of breath COMPARISON STUDY: 03/31/2021 FINDINGS: There are postsurgical changes of midline sternotomy. There is persistent marked cardiomega ly. There is evidence of prior valvular replacement. There are postsurgical changes present within th e spine. There has been interval removal of the right internal jugular central venous catheter. There is radiographic evidence of mild congestive failure/fluid overload. There are small pleural effusion s. There is no lobar consolidation.[ IMPRESSION: 1. Cardiomegaly and radiographic evidence of mild congestive failure/fluid overload 2. Small bilateral pleural effusions ACT 112: Negative or not required by law. Electronically signed by: Goyo Cordova M.D. 04/02/2021 6:51 AM
[2021-04-02 07:01] LABS: BUN Creatinine Ratio 30.2 (10-20); Calcium 8.2 mg/dl (8.5-10.1); Creatinine Clr Calc Pharmacy 26.8 ml/min; Est GFR (African American) 27.8; Magnesium 2.7 mg/dl (1.8-2.4); Phosphorus 2.6 mg/dl (2.5-4.9); Potassium 4.1 mmol/L (3.5-5.1)
[2021-04-02] MEDS: PANTOprazole 40 MG TAB PO SCH ×2 (08:18→21:14)
--- NOTE | 2021-04-02 08:59 | Pharmacy Report ---
Pharmacy Abx Dose Short Note - Date of Service April 02, 2021 - Assessment & Plan Assessment 80 year old M receiving IV Vancomycin and Cefepime for treatment of sepsis secondary to complicated UTI (chronic Linares) Day #3 of antimicrobial therapy. * Vancomycin being dosed prn based on random levels given MONICO * SCr improving, but not yet at baseline. SCr 3.81-->3.15-->2.43 * Random vancomycin level this mornin.5mcg/mL * BCx with GNB/Pseudomonas 2/2; UCX with GNB/Pseudomonas and GPC (ID/sensitivities pending) * Pt has been afebrile x24 hours. Leukocytosis remains (WBC 18.8 today) Plan Vancomycin * Random level of 13.5 mcg/mL is therapeutic * Vancomycin 1250mg IV x1 dose * Goal trough level for complicated UTI: ~15 mcg/mL, pending C/S * Random level ordered for: tomorrow w/ AM labs Pharmacy will continue to follow and will adjust dose/frequency as necessary. Thank you.
[2021-04-02] MEDS ORDERED: VANCOMYCIN HCL 1,250 MG in SODIUM CHLORIDE 0.9% 250 ML IV ONE (09:00)
--- NOTE | 2021-04-02 09:34 | Ultrasound Report ---
ULTRASOUND OF THE CAROTID ARTERIES CLINICAL HISTORY: stroke COMPARISON STUDY: None. TECHNIQUE: Real-time, grayscale, and color Doppler sonography of the carotid arteries was performed. Imaging reviewed in the transverse and longitudinal planes. NASCET criteria was utilized for stenosis calcification. FINDINGS: There is mild atherosclerotic plaque present . The peak systolic velocity within the right internal carotid artery is 51 cm/sec. The systolic velocity ratio of right internal to common carotid artery is 1.2. The peak systolic velocity within the left internal carotid artery is 1 cm/sec. The systolic velocity ratio left internal to common carotid artery is 1.3. Antegrade flow is seen in the vertebral arteries. The external carotid arteries are patent. IMPRESSION: No evidence of hemodynamically significant carotid stenosis. ACT 112: Negative or not required by law. Electronically signed by: Goyo Cordova M.D. 04/02/2021 9:33 AM
[2021-04-02] MEDS: ICU ELECTROLYTE REPLACEMENT PROTOCOL SCH ×2 (10:50→16:28)
--- NOTE | 2021-04-02 11:01 | Nephrology Progress Note ---
Date of Service April 02, 2021 Assessment & Plan Admission and Anticipated Discharge Date Admission Date: March 31, 2021 Subjective Assessment & Plan (1) Acute renal failure: Patient with acute renal failure likely due to ischemic ATN in setting of septic shock. He has near normal renal function at baseline 3 months ago. Admission creatinine was 3.8. Patient is now making urine about 1--1.5 L in the past 24 hours. -We will continue to monitor renal function with daily BMP. Slowly getting better. -Avoid nephrotoxins and renally dose antibiotics. Will monitor daily for dialysis needs (2) Septic shock: Possibly urinary source. Patient is on cefepime and vancomycin per ICU team. Avoid supratherapeutic vancomycin levels which can be nephrotoxic. (3) CHF (congestive heart failure): Patient with valvular heart disease but fairly preserved EF. Chest x-ray showed mild pulmonary edema and cardiomegaly. Will be cautious with IV fluids. Volume status is acceptable. Admission and Anticipated Discharge Date Admission Date: March 31, 2021 Subjective Seen in follow-up for acute renal failure. No new issues. No shortness of breath. He had some abdominal discomfort while eating breakfast. No leg swelling. Review of Systems Review of Systems: All systems reviewed & are unremarkable except as noted in HPI & below Physical Exam Physical Exam: General exam: Appears comfortable, no acute distress HEENT: Pupils are equal and reactive to light Neck: No JVD, neck is supple trachea is midline Respiratory system: Clear breath sounds bilaterally. Gastrointestinal: Abdomen is soft, non distended, non tender, bowel sounds are present CVS: Regular rate and rhythm. No murmurs, rubs or gallops Musculoskeletal: No joint or muscle tenderness Extremities: Non tender, no edema, peripheral pulses are present Neuro: Oriented, no tremors, no focal neurological deficits Skin: No rashes Results & Data ([facility]) Vital Signs (Past 12 Hours) Vital Signs Temp Pulse Resp BP BP Pulse Ox 04/02/21 07:12 36.6 C 57 L 19 121/74 98 04/02/21 03:58 36.5 C 61 20 124/72 97 04/01/21 23:52 94 H 28 H 123/67 94 04/01/21 23:39 37.3 C 81 18 108/69 92
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
--- NOTE | 2021-04-02 16:02 | Hospitalist Progress Note ---
Date of Service April 02, 2021 Assessment & Plan (1) Hypotension: Septic shock Complicated UTI Chronic Ilnares catheter since last admission Pseudomonas bacteremia Blood cultures: Pseudomonas--Pansensitive Urine culture: Pseudomonas, Enterococcus -CT ABD:No urinary calculi or hydronephrosis. Linares balloon within the bladder. Enlarged prostate. Moderate bladder wall thickening with adjacent infiltration suggestive of cystitis. Mild rectal wall thickening. No bowel obstruction. Normal appendix. Cholelithiasis. No evidence for acute cholecystitis. Marked cardiomegaly. Trace bilateral pleural effusions. -Linares catheter changed on 03/31/21 in ED -ECHO: unchanged from 01/18/21 -Weaned off of pressors -Appreciate funeral director/embalmer/owner help -Continue vancomycin, cefepime -BP relatively low but stable Acute renal failure Likely ischemic ATN secondary to septic shock Cr: 3.8>3.15>2.43 Renally adjust medications as needed Avoid nephrotoxic agents as able Appreciate nephrology input Monitor renal function Lactic acidosis Secondary to above Repeat lactic acid levels improved Hypokalemia Replace electrolytes as needed Monitor Mild troponin elevation Secondary to sepsis Denies any anginal symptoms Acute/Subacute Ischemia-POA Likely Embolic Left upper extremity Weakness H/O recent intracranial hemorrhage H/O amyloid angiopathy -MRI Brain:Again seen is a large focus of signal abnormality in the left occipital lobe as detailed above. This likely represents a large infarct with hemorrhagic conversion. Underlying mass lesion or vascular abnormality is considered less likely but not excluded. Continued CT follow-up is recommended. An additional small focus of restricted diffusion is seen within the high right parietal lobe, and there is a punctate focus of restricted diffusion in the left centrum semiovale. These likely represent additional foci of acute to subacute ischemia. There is a 1.0 cm focus of hemosiderin deposition in the left cerebellar hemisphere. This could represent a site of previous hemorrhage or possibly a cavernoma. There are numerous (less than 10) additional punctate foci of hemosiderin deposition seen on the gradient sequence. Underlying amyloid angiopathy could potentially have this appearance. -CT Head:4.7 x 2.9 cm mixed attenuation abnormality within the left occipital lobe with adjacent hypodensity and loss of chacon-white differentiation with mild mass effect. This may reflect an infarct with subacute hemorrhage. A neoplastic process is within the differential although considered less likely. An MRI of the brain with and without contrast is recommended. If MRI is not possible, short-term follow-up head CT in 24 hours is recommended. Suspected age- indeterminate infarcts within the bilateral cerebellar hemispheres. -EEG: -Carotid USD:No evidence of hemodynamically significant carotid stenosis. -Appreciate Neurology Input -Given H/O A. fib, intracranial hemorrhage, amyloid angiopathy--difficult to treat acute CVA with anticoagulation given high risk for bleeding -Consider starting on aspirin 81 mg daily if not contraindicated -We will wait for neurology recommendations. -Explained Patient, patient's in detail who understands the complexity of the situation Chronic systolic heart failure H/O Bioprosthetic AVR/mitral valve repair H/O prosthetic valve stenosis Recent Streptococcus Endocarditis CXR:Mild pulmonary edema, slightly improved since prior exam. Trace bilateral pleural effusions. Completed antibiotic therapy Monitor volume status Resume diuretics when appropriate Atrial fibrillation Recently discontinued anticoagulation secondary to intracranial hemorrhage Rate controlled Esophageal varices Esophagitis Continue pantoprazole BPH Continue finasteride H/O PVD Past tobacco use Aspirin on hold DVT Px: SCDs Re thrombocytopenia, hematuria, ICH Code Status DNR/DNI Admission and Anticipated Discharge Date Admission Date: March 31, 2021 Subjective Patient is seen and examined at bedside States having leg pain and transient dyspnea overnight which resolved Persistent LUE weakness Discussed with patient's over the phone Also discussed with Cardiology Denies chest pain, shortness of breath, dizziness, nausea, abdominal pain Review of Systems Review of Systems: All systems reviewed & are unremarkable except as noted in HPI & below Physical Exam Physical Exam: Physical Exam: Vitals signs as noted above General Appearance:Moderately built and nourished, no apparent distress, chronically ill-appearing Head: normocephalic, Atraumatic Eyes: normal inspection, EOMI Neck: supple, Trachea midline Respiratory/Chest: Normal breath sounds, CTA, No accessory muscle use Cardiovascular: S1, S2, + murmur Abdomen/GI:Soft, Non tender, Bowel sounds present, +distended Extremities/Musculoskeletal:normal inspection, Trace edema Neurologic/Psych:AAOX3, grossly no focal neurological deficits, LUE weakness Skin: normal color, warm Results & Data Results & Data ([facility]) Vital Signs (Past 12 Hours) Vital Signs Temp Pulse Resp BP BP Pulse Ox 04/02/21 11:02 36.8 C 75 19 108/61 97 04/02/21 07:12 36.6 C 57 L 19 121/74 98 04/02/21 03:58 36.5 C 61 20 124/72 97 Laboratory Results Short CBC 04/02/21 Range/Units 05:55 WBC 18.77 H (4.8-10.8) K/uL Hgb 9.6 L (14.0-18.0) g/dL Hct 28.2 L (42-52) % Plt Count 94 L (130-400) K/uL BMP 04/02/21 05:55 Sodium 137 Potassium 4.1 D Chloride 106 Carbon Dioxide 24 BUN 73 H Creatinine 2.43 H D Glucose 125 H Calcium 8.2 L
[2021-04-02] MEDS: buPROPion XL 150 MG TABCR PO SCH (16:17)
--- NOTE | 2021-04-02 18:37 | Communication Note ---
Date of Service: April 02, 2021 I called and discussed updates with Sunshine. She expressed her concerns about his prognosis. I think that a palliative care consult is appropriate.
--- NOTE | 2021-04-02 20:53 | Progress Notes ---
DATE: 04/02/2021 HISTORY OF PRESENT ILLNESS: I am seeing Mr. Rose in followup of a left occipital hemorrhage 8 weeks ago, possibly left DIVISION DIRECTOR infarct with hemorrhagic conversion with an INR of 6 at that time in the setting of possible bacterial endocarditis. Anticoagulation was stopped and aspirin was restarted. This patient completed a course of intravenous antibiotics and presented with increased weakness. While in the Emergency Room, according to his , he developed left upper extremity weakness. An MRI of the brain shows an acute infarct in the high right parietal region with a punctate focus of restricted diffusion in the left centrum semiovale, likely representing acute to subacute ischemia, 1 cm focus of hemosiderin in the left cerebellar hemisphere could represent a site of prior hemorrhage or possible cavernoma, multiple less than 10 additional punctate foci of hemosiderin deposition seen in gradient sequence, underlying amyloid angiopathy could potentially have this appearance. Again seen is a large focus of signal abnormality in the left occipital lobe, likely representing a large infarct with hemorrhagic conversion. Underlying mass lesion of vascular anomaly is considered less likely, but cannot be excluded. The patient's carotid ultrasound shows no hemodynamically significant stenosis and antegrade flow is seen in the vertebral arteries. The patient has no complaints. He denies a headache or any additional weakness or numbness. PHYSICAL EXAMINATION: Vitals currently 127/73, 65, 17, temperature 37.8. The patient is awake and alert, oriented x3, no right/left confusion. There is normal extraocular motility. He has a nonhomonymous right hemianopsia. There is normal facial sensation and facial symmetry. Speech and language are normal. Motor: Left upper extremity is about 3+/5 with the biceps being a little weaker 3/5 and the triceps being 2+. The left arm is clumsy on [id number], but perhaps somewhat less so than it was yesterday. Lower extremities and right upper extremity are full. There is intact to light touch and there is no double simultaneous extinction. IMPRESSION: This patient with a known prosthetic mitral valvular atrial fibrillation, has had a left occipital presumed infarct with large hemorrhagic transformation while supratherapeutic on anticoagulants. That has markedly improved. On this admission, he developed new left arm clumsiness, MRI showing an acute infarction in the high right parietal region and the left centrum semiovale. There is evidence of abnormality on gradient imaging suggestive of micro hemorrhages, which could suggest underlying amyloid angiopathy, which would predispose him to bleed. I have reviewed his CHADS2 score as well as his HAS-BLED score, both of which are high. I discussed the patient's case with Dr. Nye and I discussed the patient's case yesterday with one of the [facility] hospitalists/stroke neurologist. This is a very difficult case in that the patient has a high risk of rebleeding on anticoagulants, but also has a high risk of stroke and in fact has had another stroke, likely embolic given its location. Recommend followup CT of the head today to rule out a large infarction in the right parietal region or hemorrhagic transformation. I have discussed with both the patient and his the difficult situation that we are in, in terms of either using anticoagulants or not using anticoagulants. The patient indicates that he defers to us, the medical treatment team. His expressed much frustration at lack of communication, privacy issues. She is very worried for his quality of life. She wonders if she should bring him home from the hospital and then take him to a state where euthanasia is permitted. She ultimately decided that whatever he decided would be adequate, understanding the significant risk of treatment either with anticoagulants or without anticoagulants. I have asked the hospitalist to obtain a palliative care consultation, so that they can meet with the family and make some general decisions. In terms of anticoagulants, would use warfarin at this point. A direct oral anticoagulant is contraindicated in this setting of renal insufficiency. Additionally, I defer to cardiology whether if his renal insufficiency improves in the future, whether a direct oral anticoagulant is appropriate given his valvular heart disease. Also, the underlying question still is, is there active endocarditis. Dr. Nye thinks that the likely source of his current bacteremia is from his urinary tract. PLAN: CT of the head tonight as above. Further decision regarding anticoagulation based on the desires of the family and the results of imaging.
[2021-04-02] MEDS: ESCITALOPRAM OXALATE 20 MG TAB PO SCH (21:14)
[2021-04-02] MEDS: FINASTERIDE 5 MG TAB PO SCH (21:14)
[2021-04-02] MEDS: TAMSULOSIN HCL 0.4 MG CAP PO SCH (21:14)
[2021-04-03 05:51] LABS: Hematocrit (blood only) 28.9 % (42-52); Hemoglobin 9.8 g/dL (14.0-18.0); Mean Corpuscular Hemoglobin 32.7 pg (25-34); Mean Corpuscular Hgb Conc 33.9 g/dL (32-36); Mean Corpuscular Volume 96.3 fL (80-100); RDW Coefficient of Variation 14.3 % (11.5-14.5); RDW Standard Deviation 50.6 fL (36.4-46.3); White Blood Count 16.73 K/uL (4.8-10.8)
[2021-04-03 05:52] LABS: Mean Platelet Volume 10.2 fL (7.4-10.4); Platelet Count 95 K/uL (130-400)
[2021-04-03] MEDS: CEFEPIME 1,000 MG in SYRINGE 0 ML IV SCH (06:00)
[2021-04-03 06:15] LABS: Basophils # (auto) 0.03 K/uL (0-0.2); Basophils % (auto) 0.2 %; Eosinophils # (auto) 0.49 K/uL (0-0.5); Eosinophils % (auto) 2.9 %; Immature Granulocytes # (auto) 0.49 K/uL (0.00-0.02); Immature Granulocytes % (auto) 2.9 %; Lymphocytes # (auto) 1.65 K/uL (1.2-3.4); Lymphocytes % (auto) 9.9 %; Monocytes # (auto) 1.19 K/uL (0.11-0.59); Monocytes % (auto) 7.1 %; Neutrophils # (auto) 12.88 K/uL (1.4-6.5)
[2021-04-03 06:23] LABS: BUN Creatinine Ratio 29.4 (10-20); Calcium 8.1 mg/dl (8.5-10.1); Creatinine Clr Calc Pharmacy 33.8 ml/min; Est GFR (African American) 40.8; Est GFR (Non-African American) 35.2; Potassium 3.8 mmol/L (3.5-5.1)
[2021-04-03] MEDS: PANTOprazole 40 MG TAB PO SCH ×2 (08:08→21:00)
[2021-04-03] MEDS ORDERED: PIPERACILL/TAZOBAC CONSULT ACTIVE PRN (08:14)
--- NOTE | 2021-04-03 09:38 | CT Scan Report ---
CT OF THE HEAD WITHOUT CONTRAST CLINICAL HISTORY: Follow up right parietal infarct and left occipital hematoma. COMPARISON STUDY: Head CT March 2021. MRI of the brain April 01, 2021. CT DOSE: 537.48 mGy.cm TECHNIQUE: Helical axial images of the head were obtained without IV contrast. Automated exposure con trol was utilized for the study. A dose lowering technique was utilized adhering to the principles o f ALARA. FINDINGS: No acute intracranial hemorrhage is present. Note is again made of hypodensity with loss of chacon-white differentiation within the left occipital lobe suggestive of an infarct. This contains a 4.7 cm focus with increased attenuation suggestive of a hematoma. This is unchanged since prior head CT and MRI. Note is again made of a subtle acute infarct within the right frontoparietal region shown on axial image 21 and 20. Expected evolution is noted. Ventricular system is stable. Basilar cistern s are patent. There are no calvarial fractures. IMPRESSION: 1. No significant change in the left occipital lobe infarct which contains a 4.7 cm mildly hyperdense focus suggestive of subacute hemorrhage. 2. Expected evolution of a small right frontoparietal acute infarct. ACT 112: Negative or not required by law. Electronically signed by: Randell Humphreys M.D. 04/03/2021 9:36 AM
--- NOTE | 2021-04-03 09:46 | Nephrology Progress Note ---
Date of Service April 03, 2021 Assessment & Plan Admission and Anticipated Discharge Date Admission Date: March 31, 2021 Subjective Assessment & Plan (1) Acute renal failure: Patient with acute renal failure likely due to ischemic ATN in setting of septic shock. He has near normal renal function at baseline 3 months ago. Admission creatinine was 3.8. Patient is now making urine about 1--1.5 L in the past 24 hours. -We will continue to monitor renal function with daily BMP. Slowly getting better. -Avoid nephrotoxins and renally dose antibiotics. Will monitor daily for dialysis needs (2) Septic shock: Possibly urinary source. Patient is on cefepime and vancomycin per ICU team. Avoid supratherapeutic vancomycin levels which can be nephrotoxic. (3) CHF (congestive heart failure): Patient with valvular heart disease but fairly preserved EF. Chest x-ray showed mild pulmonary edema and cardiomegaly. No IV fluids. Volume status is acceptable. Admission and Anticipated Discharge Date Admission Date: March 31, 2021 Subjective Seen in follow-up for acute renal failure. No new issues. No shortness of breath. Good urine output. No leg swelling. Review of Systems Review of Systems: All systems reviewed & are unremarkable except as noted in HPI & below Physical Exam Physical Exam: General exam: Appears comfortable, no acute distress HEENT: Pupils are equal and reactive to light Neck: No JVD, neck is supple trachea is midline Respiratory system: Clear breath sounds bilaterally. Gastrointestinal: Abdomen is soft, non distended, non tender, bowel sounds are present CVS: Regular rate and rhythm. No murmurs, rubs or gallops Musculoskeletal: No joint or muscle tenderness Extremities: Non tender, no edema, peripheral pulses are present Neuro: Oriented, no tremors, no focal neurological deficits Skin: No rashes Results & Data ([facility]) Vital Signs (Past 12 Hours) Vital Signs Temp Pulse Pulse Resp BP Pulse Ox 04/03/21 07:30 36.6 C 76 19 133/71 96 04/03/21 03:08 37.1 C 72 21 133/80 95 04/03/21 00:00 68 04/02/21 23:20 36.7 C 64 22 131/78 92
[2021-04-03] MEDS: PIPERACILLIN/TAZOBACTAM 3.375 GM in DEXTROSE 5% 100 ML IV SCH ×2 (10:40→17:27)
--- NOTE | 2021-04-03 12:50 | Palliative Care Consultation ---
Date of Consultation April 03, 2021 History of Present Illness Reason for Consultation: goals of care Requesting Physician: Dr. 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 [place] [facility] [place] and developed an intraparenchymal hemorrhage during his hospital stay. He had been in rehab from 01/30/21 to 03/06/21 and was discharged home. He presented with fever, weakness and hypotension due to septic shock. He also had MONICO which is improving with treatment. He did have a urinary tract infection and had had catheter for urinary retention. Allergies Allergy/AdvReac Type Severity Reaction Status Date / Time No Known Allergies Allergy Unknown Verified 03/30/21 23:14 Home Medications Medication Instructions Recorded Confirmed Type amlodipine 10 mg PO HS 01/17/21 03/30/21 History bupropion HCl 150 mg PO QPM 01/17/21 03/30/21 History escitalopram oxalate 20 mg PO HS 01/17/21 03/30/21 History furosemide 40 mg PO DAILY PRN 01/17/21 03/30/21 History losartan 100 mg PO HS 01/17/21 03/30/21 History tamsulosin 0.4 mg PO HS 01/17/21 03/30/21 History triamterene-hydrochlorothiazid 1 cap PO HS 01/17/21 03/30/21 History acetaminophen [Tylenol Extra 1,000 mg PO Q8H PRN 03/30/21 03/30/21 History Strength] amoxicillin 2,000 mg PO DIRECTED PRN 03/30/21 03/30/21 History aspirin 81 mg PO HS 03/30/21 03/30/21 History cholecalciferol (vitamin D3) 125 mcg PO HS 03/30/21 03/30/21 History [Vitamin D3] finasteride 5 mg PO HS 03/30/21 03/30/21 History sulfamethoxazole-trimethoprim 1 tab PO BID 03/30/21 03/30/21 History Patient History Medical History Acute respiratory failure with hypoxia MONICO (acute kidney injury) Anxiety Atrial fibrillation "on Coumadin" CHF (congestive heart failure) Cirrhosis Depression Dyslipidemia HTN (hypertension) Hyponatremia Prosthetic aortic valve stenosis Pulmonary edema Streptococcal bacteremia Supratherapeutic INR Weakness Surgical History History of aortic valve replacement "2009" History of inguinal hernia repair History of mitral valve replacement "2009" S/P AVR S/P MVR (mitral valve repair) Status post repair of hydrocele Social History Smoking Status: Former smoker Tobacco Type: Cigarettes Do You Dip or Chew Tobacco: No; Hx Alcohol Use: No Hx Substance Use: No Preferred Language: Syriac Communication Ability: Effective Systems Technician Required: No Beliefs That Will Affect Care: None Current Living Situation: Spouse Other Information That Helps Us Care for You: No Feels Safe at Home: Yes Safety Concerns: Feels Safe At This Time Assistive Devices: Walker Results & Data ([facility]) Vital Signs (Past 12 Hours) Vital Signs Temp Pulse Resp BP Pulse Ox 04/03/21 11:08 98.2 F 66 19 126/70 93 04/03/21 07:30 97.9 F 76 19 133/71 96 04/03/21 03:08 98.8 F 72 21 133/80 95 PG Care Time/CCT Total # of Minutes Spent Total Time Spent with Patient: Total time spent is greater than 50% in coordination of care (as documented) at patient's floor/unit and/or counseling patient: Coding
--- NOTE | 2021-04-03 14:41 | Hospitalist Progress Note ---
Date of Service April 03, 2021 Assessment & Plan (1) Hypotension: Septic shock Complicated UTI Chronic Linares catheter since last admission Pseudomonas bacteremia Sepsis due to Pseudomonas, Enterococcus, POA Likely Linares catheter-associated UTI Blood cultures: Pseudomonas--Pansensitive Urine culture: Pseudomonas, Enterococcus -CT ABD:No urinary calculi or hydronephrosis. Linares balloon within the bladder. Enlarged prostate. Moderate bladder wall thickening with adjacent infiltration suggestive of cystitis. Mild rectal wall thickening. No bowel obstruction. Normal appendix. Cholelithiasis. No evidence for acute cholecystitis. Marked cardiomegaly. Trace bilateral pleural effusions. -Linares catheter changed on 03/31/21 in ED -ECHO: unchanged from 01/18/21 -Weaned off of pressors -Appreciate backpackers manager help -Continue vancomycin, cefepime>>>Transition to Zosyn -Bp stable Acute renal failure Likely ischemic ATN secondary to septic shock Cr: 3.8>3.15>2.43>1.77 Renally adjust medications as needed Avoid nephrotoxic agents as able Appreciate nephrology input Monitor renal function Renal function continues to improve Lactic acidosis Secondary to above Repeat lactic acid levels improved Hypokalemia Replace electrolytes as needed Monitor Mild troponin elevation Secondary to sepsis Denies any anginal symptoms Acute/Subacute Ischemia-POA Likely Embolic Left upper extremity Weakness H/O recent intracranial hemorrhage H/O amyloid angiopathy -MRI Brain:Again seen is a large focus of signal abnormality in the left occipital lobe as detailed above. This likely represents a large infarct with hemorrhagic conversion. Underlying mass lesion or vascular abnormality is considered less likely but not excluded. Continued CT follow-up is recommended. An additional small focus of restricted diffusion is seen within the high right parietal lobe, and there is a punctate focus of restricted diffusion in the left centrum semiovale. These likely represent additional foci of acute to subacute ischemia. There is a 1.0 cm focus of hemosiderin deposition in the left cerebellar hemisphere. This could represent a site of previous hemorrhage or possibly a cavernoma. There are numerous (less than 10) additional punctate foci of hemosiderin deposition seen on the gradient sequence. Underlying amyloid angiopathy could potentially have this appearance. -CT Head:4.7 x 2.9 cm mixed attenuation abnormality within the left occipital lobe with adjacent hypodensity and loss of chacon-white differentiation with mild mass effect. This may reflect an infarct with subacute hemorrhage. A neoplastic process is within the differential although considered less likely. An MRI of the brain with and without contrast is recommended. If MRI is not possible, short-term follow-up head CT in 24 hours is recommended. Suspected age- indeterminate infarcts within the bilateral cerebellar hemispheres. -EEG:pending -Carotid USD:No evidence of hemodynamically significant carotid stenosis. -Appreciate Neurology Input -Given H/O A. fib, intracranial hemorrhage, amyloid angiopathy--difficult to treat acute CVA with anticoagulation given high risk for bleeding -Consider starting on aspirin 81 mg daily if not contraindicated -We will wait for neurology recommendations. -Explained Patient, patient's in detail who understands the complexity of the situation -Repeat CT head showed No significant change in the left occipital lobe infarct which contains a 4.7 cm mildly hyperdense focus suggestive of subacute hemorrhage. Expected evolution of a small right frontoparietal acute infarct. -Palliative care consulted to address goals of care Chronic systolic heart failure H/O Bioprosthetic AVR/mitral valve repair H/O prosthetic valve stenosis Recent Streptococcus Endocarditis CXR:Mild pulmonary edema, slightly improved since prior exam. Trace bilateral pleural effusions. Completed antibiotic therapy Monitor volume status Resume diuretics when appropriate Atrial fibrillation Recently discontinued anticoagulation secondary to intracranial hemorrhage Rate controlled Esophageal varices Esophagitis Continue pantoprazole BPH Continue finasteride H/O PVD Past tobacco use Aspirin on hold DVT Px: SCDs Re thrombocytopenia, hematuria, ICH Code Status DNR/DNI Palliative care consulted to address goals of care. Admission and Anticipated Discharge Date Admission Date: March 31, 2021 Subjective Patient is seen and examined at bedside Denies any new focal weakness No new complaints Persistent LUE weakness Denies chest pain, shortness of breath, dizziness, nausea, abdominal pain Review of Systems Review of Systems: All systems reviewed & are unremarkable except as noted in HPI & below Physical Exam Physical Exam: Physical Exam: Vitals signs as noted above General Appearance:Moderately built and nourished, no apparent distress, chronically ill-appearing Head: normocephalic, Atraumatic Eyes: normal inspection, EOMI Neck: supple, Trachea midline Respiratory/Chest: Normal breath sounds, CTA, No accessory muscle use Cardiovascular: S1, S2, + murmur Abdomen/GI:Soft, Non tender, Bowel sounds present, +distended Extremities/Musculoskeletal:normal inspection, Trace edema Neurologic/Psych:AAOX3, grossly no focal neurological deficits, LUE weakness Skin: normal color, warm Results & Data Results & Data ([facility]) Vital Signs (Past 12 Hours) Vital Signs Temp Pulse Resp BP Pulse Ox 04/03/21 11:08 36.8 C 66 19 126/70 93 04/03/21 07:30 36.6 C 76 19 133/71 96 04/03/21 03:08 37.1 C 72 21 133/80 95 Laboratory Results Short CBC 04/03/21 Range/Units 05:28 WBC 16.73 H (4.8-10.8) K/uL Hgb 9.8 L (14.0-18.0) g/dL Hct 28.9 L (42-52) % Plt Count 95 L (130-400) K/uL BMP 04/03/21 05:28 Sodium 138 Potassium 3.8 Chloride 107 Carbon Dioxide 27 BUN 52 H Creatinine 1.77 H D Glucose 113 H Calcium 8.1 L
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
--- NOTE | 2021-04-03 17:40 | Progress Notes ---
DATE: 04/03/2021 SUBJECTIVE: I am seeing the patient in followup. He has no headache today. He notes no new weakness or numbness, left arm remains unchanged. His CT of the head last night, which I have reviewed, shows no significant change in the left occipital infarction, which is mildly hyperdense suggestive of subacute hemorrhage and expected evolution of a small right frontoparietal acute infarction. OBJECTIVE: GENERAL: The patient is awake and alert, oriented to person and place, I did not check time as I believe him to be oriented to time. HEENT: There is a nonhomonymous right hemianopsia. There is intact supranasal field in the left eye. There is no flattening of the nasolabial fold. EXTREMITIES: Left upper extremity is approximately 3+ at best. Right upper bilateral lower are full. There is no sensory loss to light touch. The left arm is dystaxic consistent with its weakness. IMPRESSION: This is a patient with atrial fibrillation, valvular heart disease who had a left presumed posterior cerebral artery infarct with a large hemorrhagic transformation while on anticoagulants with warfarin with an INR of 6. Coumadin was held and the pt has a new ischemic infarct in the high right parietal region, likely embolic and in the left centrum semiovale. The latter for which he was asymptomatic. There is also evidence radiographically of a possible amyloid angiopathy. Have elected with some discussion amongst stroke Neurology as well as Cardiology and hospitalist service to cautiously begin warfarin in low dose and let the INR gradually drift upward. The patient and his know that there may be a hemorrhagic transformation or recurrent hemorrhage associated with the anticoagulation use, but they are willing to accept that risk. Risk for the benefit of stroke prevention. Would recommend a repeat CT if there is any change in mentation, new weakness, numbness, or headache. The patient apparently will be seen by palliative care tomorrow. We will follow with you. GILDA
[2021-04-03] MEDS: ESCITALOPRAM OXALATE 20 MG TAB PO SCH (20:59)
[2021-04-03] MEDS: TAMSULOSIN HCL 0.4 MG CAP PO SCH (20:59)
[2021-04-03] MEDS: FINASTERIDE 5 MG TAB PO SCH (21:00)
[2021-04-04] MEDS: PIPERACILLIN/TAZOBACTAM 3.375 GM in DEXTROSE 5% 100 ML IV SCH ×3 (02:03→17:28)
[2021-04-04 06:46] LABS: Hematocrit (blood only) 28.7 % (42-52); Hemoglobin 9.7 g/dL (14.0-18.0); Mean Corpuscular Hemoglobin 32.7 pg (25-34); Mean Corpuscular Hgb Conc 33.8 g/dL (32-36); Mean Corpuscular Volume 96.6 fL (80-100); Mean Platelet Volume 9.9 fL (7.4-10.4); Platelet Count 107 K/uL (130-400); RDW Coefficient of Variation 14.4 % (11.5-14.5); RDW Standard Deviation 50.8 fL (36.4-46.3); Red Blood Count 2.97 M/uL (4.7-6.1); White Blood Count 13.64 K/uL (4.8-10.8)
[2021-04-04 07:05] LABS: Basophils # (auto) 0.03 K/uL (0-0.2); Basophils % (auto) 0.2 %; Eosinophils # (auto) 0.55 K/uL (0-0.5); Immature Granulocytes % (auto) 4.4 %; Lymphocytes # (auto) 1.28 K/uL (1.2-3.4); Lymphocytes % (auto) 9.4 %; Monocytes # (auto) 0.78 K/uL (0.11-0.59); Monocytes % (auto) 5.7 %; Neutrophils % (auto) 76.3 %
[2021-04-04 07:22] LABS: BUN Creatinine Ratio 32.6 (10-20); Calcium 8.2 mg/dl (8.5-10.1); Creatinine Clr Calc Pharmacy 46.7 ml/min; Est GFR (African American) 60.4; Est GFR (Non-African American) 52.1; Magnesium 2.2 mg/dl (1.8-2.4); Potassium 3.6 mmol/L (3.5-5.1)
[2021-04-04] MEDS: PANTOprazole 40 MG TAB PO SCH ×2 (09:16→21:02)
--- NOTE | 2021-04-04 11:49 | Hospitalist Progress Note ---
Date of Service April 04, 2021 Assessment & Plan (1) Hypotension: Septic shock Complicated UTI Chronic Ch catheter since last admission Pseudomonas bacteremia Sepsis due to Pseudomonas, Enterococcus, POA Likely Ch catheter-associated UTI Blood cultures: Pseudomonas--Pansensitive Urine culture: Pseudomonas, Enterococcus -CT ABD:No urinary calculi or hydronephrosis. Ch balloon within the bladder. Enlarged prostate. Moderate bladder wall thickening with adjacent infiltration suggestive of cystitis. Mild rectal wall thickening. No bowel obstruction. Normal appendix. Cholelithiasis. No evidence for acute cholecystitis. Marked cardiomegaly. Trace bilateral pleural effusions. -Ch catheter changed on 03/31/21 in ED -ECHO: unchanged from 01/18/21 -Weaned off of pressors Currently on Zosyn. Will likely need a prolonged antibiotic course Will appreciate ID recommendations Acute renal failure Likely ischemic ATN secondary to septic shock Cr: 3.8>3.15>2.43>1.77>1.28 Renally adjust medications as needed Avoid nephrotoxic agents as able Monitor renal function Renal function continues to improve Lactic acidosis Secondary to above Repeat lactic acid levels improved Hypokalemia Replete electrolytes as needed Monitor Mild troponin elevation Secondary to sepsis Denied any anginal symptoms Acute/Subacute Ischemia-POA Likely Embolic Left upper extremity Weakness H/O recent intracranial hemorrhage H/O amyloid angiopathy -MRI Brain:Again seen is a large focus of signal abnormality in the left occipital lobe as detailed above. This likely represents a large infarct with hemorrhagic conversion. Underlying mass lesion or vascular abnormality is considered less likely but not excluded. Continued CT follow-up is recommended. An additional small focus of restricted diffusion is seen within the high right parietal lobe, and there is a punctate focus of restricted diffusion in the left centrum semiovale. These likely represent additional foci of acute to subacute ischemia. There is a 1.0 cm focus of hemosiderin deposition in the left cerebellar hemisphere. This could represent a site of previous hemorrhage or possibly a cavernoma. There are numerous (less than 10) additional punctate foci of hemosiderin deposition seen on the gradient sequence. Underlying amyloid angiopathy could potentially have this appearance. -CT Head:4.7 x 2.9 cm mixed attenuation abnormality within the left occipital lobe with adjacent hypodensity and loss of chacon-white differentiation with mild mass effect. This may reflect an infarct with subacute hemorrhage. A neoplastic process is within the differential although considered less likely. An MRI of the brain with and without contrast is recommended. If MRI is not possible, short-term follow-up head CT in 24 hours is recommended. Suspected age- indeterminate infarcts within the bilateral cerebellar hemispheres. -EEG:pending -Carotid USD:No evidence of hemodynamically significant carotid stenosis. -Given H/O A. fib, intracranial hemorrhage, amyloid angiopathy--difficult to treat acute CVA with anticoagulation given high risk for bleeding -Consider starting on aspirin 81 mg daily if not contraindicated -Repeat CT head showed No significant change in the left occipital lobe infarct which contains a 4.7 cm mildly hyperdense focus suggestive of subacute hemorrhage. Expected evolution of a small right frontoparietal acute infarct. -Neurologist recommendations appreciated I spent quite sometime discussing patient's case with Outreach Educator Dr Nye. Patient is at high risk of worsening/new intracranial bleed if anticoagulation is resumed I also share this concern especially with patient needing antibiotics (currently on zosyn) which can enhance anticoagulant effect of warfarin. I informed the patient about the complexities of the management including neurologist recommendation about starting warfarin. I also highlighted the risks associated with resuming this. Will defer starting anticoagulation for now. He agrees for now. Will continue to discuss this further. 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 Trace bilateral pleural effusions. Completed antibiotic therapy for endocarditis Monitor volume status Continue to hold diuretics for now as MONICO improves. Plan to resume later Atrial fibrillation Recently discontinued anticoagulation secondary to intracranial hemorrhage Rate controlled Esophageal varices Esophagitis Continue pantoprazole BPH Continue finasteride H/O PVD Past tobacco use Aspirin on hold DVT Px: SCDs Re thrombocytopenia, hematuria, ICH Code Status DNR/DNI Palliative care on board aiding with goals of care. Admission and Anticipated Discharge Date Admission Date: March 31, 2021 Subjective 80-year-old man with history significant for aortic valvular replacement and mitral valvular repair with annuloplasty in 20 time, recent hospitalization here at [facility] in 12/2020 and subsequent transfer to [facility] for endocarditis recent left occipital intraparenchymal hematoma in 01/2021 and was discharged off anticoagulation despite history of chronic A. fib to rehab, who presented with fevers, chills, hematuria after outpatient Ch catheter replacement. Managed for septic shock. Required initial management in ICU with pressors which have been weaned off. Blood cultures from 03/31/2021 growing Pseudomonas aeruginosa and urine culture growing Pseudomonas and Enterococcus CT head and MRI showed left occipital lobe infarct with hemorrhagic conversion measuring 4.7 cm Patient seen and examined this morning Reports only left upper extremity weakness and stated that he had had some involuntary movement in that extremity in the past couple of days Review of Systems Constitutional: no fever, no fatigue and no anorexia Eyes: + blind spots (Reports a dark spot on right visual field since after stroke in 01/2021) Ear, Nose, Mouth, Throat: no hearing loss Respiratory: no cough and no dyspnea Cardiovascular: no chest pain, no dyspnea and no palpitations Gastrointestinal: no abdominal pain, no nausea and no vomiting Genitourinary: + difficulty urinating (ch in situ) Neurologic: + localized weakness (LUE); no generalized weakness, no headache(s) and no confusion Psychiatric: no depression and no anxiety Physical Exam Constitutional: + well hydrated; no acute distress Eyes: PERRL, conjunctivae normal, anicteric sclerae ENMT: external ear and nose normal, oropharynx normal Respiratory: normal respiratory effort, lungs clear to auscultation Cardiovascular: Rate/Rhythm: + irregularly irregular S1 S2. Systolic ejection murmur Gastrointestinal (Abdomen): normal bowel sounds, soft, nontender, no hepatosplenomegaly Musculoskeletal: No pedal edema Neurologic: PERRL, EOMI, accommodation nl, no face palsy, no dysarthria Power is 4/5 in LUE. 5/5 in RUE Psychiatric: A+Ox3, euthymic affect Genitourinary: Ch in situ Results & Data Results & Data ([facility]) Vital Signs (Past 12 Hours) Vital Signs Temp Pulse Pulse Resp BP Pulse Ox 04/04/21 11:47 37.5 C 56 L 18 111/63 96 04/04/21 08:09 36.8 C 66 19 116/67 93 04/04/21 08:00 66 04/04/21 03:46 37.1 C 68 18 120/62 96 Laboratory Results Laboratory Results - last 24 hr 04/04/21 04/04/21 06:26 06:26 WBC 13.64 H RBC 2.97 L Hgb 9.7 L Hct 28.7 L MCV 96.6 MCH 32.7 MCHC 33.8 RDW Std Deviation 50.8 H RDW Coeff of Luis 14.4 Plt Count 107 L MPV 9.9 Immature Gran % (Auto) 4.4 Neut % (Auto) 76.3 Lymph % (Auto) 9.4 Crosby % (Auto) 5.7 Eos % (Auto) 4.0 Baso % (Auto) 0.2 Neut # (Auto) 10.40 H Lymph # (Auto) 1.28 [place] # (Auto) 0.78 H Eos # (Auto) 0.55 H Baso # (Auto) 0.03 Immature Gran # (Auto) 0.60 H Sodium 138 Potassium 3.6 Chloride 108 H Carbon Dioxide 24 Anion Gap 6.0 BUN 42 H Creatinine 1.28 D Est Cr Clr Drug Dosing 46.7 Est GFR ( Amer) 60.4 Est GFR (Non-Af Amer) 52.1 BUN/Creatinine Ratio 32.6 H Glucose 105 H Calcium 8.2 L Magnesium 2.2
--- NOTE | 2021-04-04 16:12 | Palliative Care Consultation ---
Date of Consultation April 04, 2021 Assessment & Plan (1) Palliative care encounter: I talked with Bobby about his understanding of his illness. He told me "I know what's going to happen". When I asked him to elaborate on that, he told me that he knows that he is going to at some time and that he is not likely to get better. He mentions that he will never be able to go golfing or do things that he used to do. He has had some residual cognitive effects from his CVA, particularly with numbers which is frustrating for him and affects his quality of life. He accepts his current situation and tells me that he is taking things one day at a time. The things that bring meaning to his life are being at home with his and cat and being able to monitor his investments. At this point in his illness, he would not want resuscitation and would prefer not to return to the hospital. He has had home care during his antibiotic course and he would like to have additional home care at discharge with PT/OT to see if he can improve his functional status. We did discuss hospice as a means of support for him and his to ensure that his symptoms could be managed and he could remain at home until his . He is considering this transition after home care and therapy. He is concerned about his appetite and feels that his wanting him to eat all the time is a stressor for him. I did try to call his to discuss goals of care and nutrition but there was no answer. Palliative care will follow. (2) Acute renal failure: Acute renal failure type: unspecified Qualified Code(s): N17.9 - Acute kidney failure, unspecified (3) CHF (congestive heart failure): (4) Atrial fibrillation: History of Present Illness Reason for Consultation: goals of care Requesting Physician: Dr. Villar Attending Physician: Radha Villar MD History of Present Illness 80 yo gentleman with HFpEF and bioprosthetic aortic valve, now with severe stenosis. He was recently treated at [facility] for Strep endocarditis and completed a 13 week course of IV antibiotics. He has a history of atrial fibrillation and prior CVA with hemorrhage. He was admitted with septic shock and MONICO related to a UTI. He has had urinary retention with BPH. He is found on admission to have a new infarction on CT and neuro evaluation and is not a candidate for anticoagulation with his history of ICH. We have been consulted to assist with goals of care. Allergies Allergy/AdvReac Type Severity Reaction Status Date / Time No Known Allergies Allergy Unknown Verified 03/30/21 23:14 Home Medications Medication Instructions Recorded Confirmed Type amlodipine 10 mg PO HS 01/17/21 03/30/21 History bupropion HCl 150 mg PO QPM 01/17/21 03/30/21 History escitalopram oxalate 20 mg PO HS 01/17/21 03/30/21 History furosemide 40 mg PO DAILY PRN 01/17/21 03/30/21 History losartan 100 mg PO HS 01/17/21 03/30/21 History tamsulosin 0.4 mg PO HS 01/17/21 03/30/21 History triamterene-hydrochlorothiazid 1 cap PO HS 01/17/21 03/30/21 History acetaminophen [Tylenol Extra 1,000 mg PO Q8H PRN 03/30/21 03/30/21 History Strength] amoxicillin 2,000 mg PO DIRECTED PRN 03/30/21 03/30/21 History aspirin 81 mg PO HS 03/30/21 03/30/21 History cholecalciferol (vitamin D3) 125 mcg PO HS 03/30/21 03/30/21 History [Vitamin D3] finasteride 5 mg PO HS 03/30/21 03/30/21 History sulfamethoxazole-trimethoprim 1 tab PO BID 03/30/21 03/30/21 History Patient History Medical History Acute respiratory failure with hypoxia MONICO (acute kidney injury) Anxiety Atrial fibrillation "on Coumadin" CHF (congestive heart failure) Cirrhosis Depression Dyslipidemia HTN (hypertension) Hyponatremia Prosthetic aortic valve stenosis Pulmonary edema Streptococcal bacteremia Supratherapeutic INR Weakness Surgical History History of aortic valve replacement "2009" History of inguinal hernia repair History of mitral valve replacement "2009" S/P AVR S/P MVR (mitral valve repair) Status post repair of hydrocele Social History Smoking Status: Former smoker Tobacco Type: Cigarettes Do You Dip or Chew Tobacco: No; Hx Alcohol Use: No Hx Substance Use: No Preferred Language: Swedish Communication Ability: Effective Intranet Developer Required: No Beliefs That Will Affect Care: None Current Living Situation: Spouse Other Information That Helps Us Care for You: No Feels Safe at Home: Yes Safety Concerns: Feels Safe At This Time Assistive Devices: Walker Review of Systems Review of Systems: [place] Symptom Assessment Score Pain 0/3 Dyspnea 0/3 Anxiety 1/3 Fatigue 2/3 Drowsiness 0/3 Nausea 0/3 Anorexia 2/3 Palliative Performance Score 40% Physical Exam Constitutional: + ill appearing; no acute distress ENMT: Mouth: + dry oral mucous membranes Respiratory: normal respiratory effort; no labored breathing Cardiovascular: Rate/Rhythm: + irregularly irregular Gastrointestinal (Abdomen): Inspection/Auscultation: abdomen not distended Musculoskeletal: Extremities: extremities normal to inspection Neurologic: left sided weakness Results & Data ([facility]) Vital Signs (Past 12 Hours) Vital Signs Temp Pulse Pulse Resp BP Pulse Ox 04/04/21 15:47 97.7 F 70 18 143/76 H 97 04/04/21 11:47 99.5 F 56 L 18 111/63 96 04/04/21 08:09 98.2 F 66 19 116/67 93 04/04/21 08:00 66 PG Care Time/CCT Total # of Minutes Spent Total Time Spent with Patient: Total time spent is greater than 50% in coordination of care (as documented) at patient's floor/unit and/or counseling patient: total time spent 60 minutes with more than 50% of time spent on goals of care, hospice, symptom management. Coding Level of Care Code 51813 Inpt Consult Level 3 Diagnoses Palliative care encounter Z51.5 Acute renal failure N17.9 Acute renal failure type: unspecified CHF (congestive heart failure) I50.9 Atrial fibrillation I48.91
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
[2021-04-04] MEDS: FINASTERIDE 5 MG TAB PO SCH (21:02)
[2021-04-04] MEDS: TAMSULOSIN HCL 0.4 MG CAP PO SCH (21:02)
[2021-04-04] MEDS: ESCITALOPRAM OXALATE 20 MG TAB PO SCH (21:02)
--- NOTE | 2021-04-04 23:24 | Progress Notes ---
DATE: 04/04/2021 SUBJECTIVE: I am seeing the patient in followup of the hemorrhagic left MUD GRINDER infarction in the setting of an elevated INR of 6. MRI showing evidence of micro hemorrhages. On this hospitalization for sepsis, this patient has a new high right parietal infarction, likely embolic and a left cardona radiata infarction. I have advised that the patient begin on warfarin. Today, the patient denies a headache or any new neurologic symptoms. He does admit to feeling fatigued. PHYSICAL EXAMINATION: He has a nonhomonymous right hemianopsia. He has no significant facial asymmetry. Left upper extremity about 3+. Right upper bilateral, lower symmetric. The patient is awake and alert and oriented. IMPRESSION: Large hemorrhagic left MUD GRINDER infarction 8 weeks ago, patient was off anticoagulants, but on antiplatelet and had a right high parietal infarction and a left internal capsule infarction. Although there is significant risk, he has ongoing risk of atrial fibrillation. With a joint decision with family and the patient suggests that although risk of bleeding is high, he has already had a recurrent stroke. We will recommend starting Coumadin. It is unclear to me if it has been started. If it has not, I would recommend a followup a CT 2 days after restarting anticoagulant. Palliative care consult is recommended.
[2021-04-05] MEDS: PIPERACILLIN/TAZOBACTAM 3.375 GM in DEXTROSE 5% 100 ML IV SCH ×3 (01:49→17:29)
[2021-04-05 06:42] LABS: Hemoglobin 9.4 g/dL (14.0-18.0); Mean Corpuscular Hemoglobin 33.5 pg (25-34); Mean Corpuscular Hgb Conc 33.6 g/dL (32-36); Mean Corpuscular Volume 99.6 fL (80-100); Mean Platelet Volume 10.2 fL (7.4-10.4); Platelet Count 106 K/uL (130-400); RDW Coefficient of Variation 14.2 % (11.5-14.5); RDW Standard Deviation 51.3 fL (36.4-46.3); Red Blood Count 2.81 M/uL (4.7-6.1); White Blood Count 17.54 K/uL (4.8-10.8)
[2021-04-05 07:23] LABS: BUN Creatinine Ratio 26.2 (10-20); Calcium 8.6 mg/dl (8.5-10.1); Creatinine Clr Calc Pharmacy 46.4 ml/min; Est GFR (African American) 59.9 ml/min; Est GFR (Non-African American) 51.7 ml/min; Magnesium 2.2 mg/dl (1.8-2.4); Phosphorus 2.6 mg/dl (2.5-4.9); Potassium 3.7 mmol/L (3.5-5.1)
[2021-04-05] MEDS: PANTOprazole 40 MG TAB PO SCH ×2 (08:20→21:06)
--- NOTE | 2021-04-05 09:13 | Palliative Care Progress Note ---
Date of Service April 05, 2021 Assessment & Plan (1) Palliative care encounter: I talked with Bobby about our discussion yesterday. He is feeling discouraged today and is concerned about the future. He is worried about whether he will be able to get home and for how long. We talked about having hospice support if his feels that she can manage his care at home but he tells me that she has health problems also. Unfortunately, I have not been able to reach her again this morning. Will keep trying. 1710 I spoke with Bobby's on the phone. She tells me that she feels comfortable with caring for him at home if she has someone to administer the antibiotics. They have a one floor home and a good set up for him to be at home. We discussed his concerns about his declining function and poor prognosis. She recognizes that he is nearing his dying time and is agreeable to home with home care to finish antibiotics and at that time consider transition to comfort care. (2) Stroke: (3) CHF (congestive heart failure): (4) Atrial fibrillation: (5) Prosthetic aortic valve stenosis: Admission and Anticipated Discharge Date Admission Date: March 31, 2021 Subjective Feels weak today. Walked to bathroom and then needed to get back in bed to rest. Did have dyspnea with exertion. Denies pain. Review of Systems Review of Systems: [place] Symptom Assessment Scale Pain 0/3 Dyspnea 1/3 Anxiety 2/3 Fatigue 2/3 Nausea 0/3 Anorexia 2/3 Drowsiness 0/3 Palliative Performance Score 40% Physical Exam Constitutional: + ill appearing Respiratory: + uses accessory muscles Musculoskeletal: Extremities: + muscle atrophy left sided weakness Neurologic: awake; not confused Results & Data ([facility]) Vital Signs (Past 12 Hours) Vital Signs Temp Pulse Resp BP BP Pulse Ox 04/05/21 07:52 98.1 F 60 16 133/73 98 04/05/21 03:14 98.6 F 63 20 114/73 95 04/05/21 01:33 97.3 F L 04/04/21 23:19 99.3 F 75 20 105/57 L 92 PG Care Time/CCT Total # of Minutes Spent Total Time Spent with Patient: Total time spent is greater than 50% in coordination of care (as documented) at patient's floor/unit and/or counseling patient: total time spent 45 minutes with more than 50% of time spent on goals of care, family education and support, Coding Level of Care Code 64316 Subseq Hosp Care Lvl 3 Diagnoses Palliative care encounter Z51.5 Stroke I63.9 CHF (congestive heart failure) I50.9 Atrial fibrillation I48.91 Prosthetic aortic valve stenosis T82.857A
--- NOTE | 2021-04-05 12:46 | Hospitalist Progress Note ---
Date of Service April 05, 2021 Assessment & Plan (1) Hypotension: Septic shock Complicated UTI Chronic Linares catheter since last admission Pseudomonas bacteremia Sepsis due to Pseudomonas, Enterococcus, POA Likely Linares catheter-associated UTI Blood cultures: Pseudomonas--Pansensitive Urine culture: Pseudomonas, Enterococcus -CT ABD:No urinary calculi or hydronephrosis. Linares balloon within the bladder. Enlarged prostate. Moderate bladder wall thickening with adjacent infiltration suggestive of cystitis. Mild rectal wall thickening. No bowel obstruction. Normal appendix. Cholelithiasis. No evidence for acute cholecystitis. Marked cardiomegaly. Trace bilateral pleural effusions. -Linares catheter changed on 03/31/21 in ED -ECHO: unchanged from 01/18/21 -Weaned off of pressors Currently on Zosyn. ID recommendations appreciated Will need iv zosyn for 2 weeks from negative culture (04/05/21) Will need midline/picc prior to discharge Acute renal failure Likely ischemic ATN secondary to septic shock Cr: 3.8>3.15>2.43>1.77>1.28>1.29 Renally adjust medications as needed Avoid nephrotoxic agents as able Monitor renal function Renal function continues to improve Lactic acidosis Secondary to above Repeat lactic acid levels improved Hypokalemia Replete electrolytes as needed Monitor Mild troponin elevation Secondary to sepsis Denied any anginal symptoms Acute/Subacute Ischemia-POA Likely Embolic Left upper extremity Weakness H/O recent intracranial hemorrhage H/O amyloid angiopathy -MRI Brain:Again seen is a large focus of signal abnormality in the left occipital lobe as detailed above. This likely represents a large infarct with hemorrhagic conversion. Underlying mass lesion or vascular abnormality is considered less likely but not excluded. Continued CT follow-up is recommended. An additional small focus of restricted diffusion is seen within the high right parietal lobe, and there is a punctate focus of restricted diffusion in the left centrum semiovale. These likely represent additional foci of acute to subacute ischemia. There is a 1.0 cm focus of hemosiderin deposition in the left cerebellar hemisphere. This could represent a site of previous hemorrhage or possibly a cavernoma. There are numerous (less than 10) additional punctate foci of hemosiderin deposition seen on the gradient sequence. Underlying amyloid angiopathy could potentially have this appearance. -CT Head:4.7 x 2.9 cm mixed attenuation abnormality within the left occipital lobe with adjacent hypodensity and loss of chacon-white differentiation with mild mass effect. This may reflect an infarct with subacute hemorrhage. A neoplastic process is within the differential although considered less likely. An MRI of the brain with and without contrast is recommended. If MRI is not possible, short-term follow-up head CT in 24 hours is recommended. Suspected age- indeterminate infarcts within the bilateral cerebellar hemispheres. -EEG:pending -Carotid USD:No evidence of hemodynamically significant carotid stenosis. -Given H/O A. fib, intracranial hemorrhage, amyloid angiopathy--difficult to treat acute CVA with anticoagulation given high risk for bleeding -Consider starting on aspirin 81 mg daily if not contraindicated -Repeat CT head showed No significant change in the left occipital lobe infarct which contains a 4.7 cm mildly hyperdense focus suggestive of subacute hemorrhage. Expected evolution of a small right frontoparietal acute infarct. -Neurologist recommendations appreciated On 04/04/21, I spent quite sometime discussing patient's case with Roll Forming Supervisor Dr Nye. Patient is at high risk of worsening/new intracranial bleed if anticoagulation is resumed I also share this concern especially with patient needing antibiotics (currently on zosyn) which can enhance anticoagulant effect of warfarin. I informed the patient about the complexities of the management including neurologist recommendation about starting warfarin. I also highlighted the risks associated with resuming this. Today, I was able to speak to patient's per his request about this as well. We discussed the risks associated with and without anticoagulation. She stated she spoke to the patient about this yesterday and they will prefer not to resume anticoagulation at this time. 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 Trace bilateral pleural effusions. Completed antibiotic therapy for endocarditis Monitor volume status Continue to hold diuretics for now as MONICO improves. Plan to resume later Atrial fibrillation Recently discontinued anticoagulation secondary to intracranial hemorrhage Rate controlled Esophageal varices Esophagitis Continue pantoprazole BPH Continue finasteride H/O PVD Past tobacco use Aspirin on hold DVT Px: SCDs Re thrombocytopenia, hematuria, ICH Code Status DNR/DNI Palliative care on board aiding with goals of care. Admission and Anticipated Discharge Date Admission Date: March 31, 2021 Subjective 80-year-old man with history significant for aortic valvular replacement and mitral valvular repair with annuloplasty in 20 time, recent hospitalization here at [facility] in 12/2020 and subsequent transfer to [facility] for endocarditis recent left occipital intraparenchymal hematoma in 01/2021 and was discharged off anticoagulation despite history of chronic A. fib to rehab, who presented with fevers, chills, hematuria after outpatient Linares catheter replacement. Managed for septic shock. Required initial management in ICU with pressors which have been weaned off. Blood cultures from 03/31/2021 growing Pseudomonas aeruginosa and urine culture growing Pseudomonas and Enterococcus CT head and MRI showed left occipital lobe infarct with hemorrhagic conversion measuring 4.7 cm Patient seen and examined Complains only of left upper extremity weakness Review of Systems Eyes: + blind spots (Right visual field) Physical Exam Constitutional: + well hydrated; no acute distress Eyes: PERRL, conjunctivae normal, anicteric sclerae ENMT: external ear and nose normal, oropharynx normal Respiratory: normal respiratory effort, lungs clear to auscultation Cardiovascular: Rate/Rhythm: + irregularly irregular S1 S2. No pedal edema Gastrointestinal (Abdomen): normal bowel sounds, soft, nontender, no hepatosplenomegaly Neurologic: PERRL, EOMI, accommodation nl, no face palsy, no dysarthria Power is 4/5 in LUE. 5/5 in RUE Psychiatric: A+Ox3, euthymic affect Genitourinary: Linares in situ Results & Data Results & Data ([facility]) Vital Signs (Past 12 Hours) Vital Signs Temp Pulse Resp BP BP Pulse Ox 04/05/21 11:49 36.9 C 61 18 106/54 L 98 04/05/21 07:52 36.7 C 60 16 133/73 98 04/05/21 03:14 37.0 C 63 20 114/73 95 04/05/21 01:33 36.3 C L Laboratory Results Laboratory Results - last 24 hr 04/05/21 04/05/21 06:27 06:27 WBC 17.54 H RBC 2.81 L Hgb 9.4 L Hct 28.0 L MCV 99.6 MCH 33.5 MCHC 33.6 RDW Std Deviation 51.3 H RDW Coeff of Luis 14.2 Plt Count 106 L MPV 10.2 Sodium 140 Potassium 3.7 Chloride 109 H Carbon Dioxide 26 Anion Gap 5.0 BUN 34 H Creatinine 1.29 Est Cr Clr Drug Dosing 46.4 Est GFR ( Amer) 59.9 Est GFR (Non-Af Amer) 51.7 BUN/Creatinine Ratio 26.2 H Glucose 106 H Calcium 8.6 Phosphorus 2.6 Magnesium 2.2
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
[2021-04-05] MEDS: buPROPion XL 150 MG TABCR PO SCH (14:28)
[2021-04-05] MEDS: ACETAMINOPHEN 325 MG TAB PO PRN (16:05)
--- NOTE | 2021-04-05 18:18 | Progress Notes ---
DATE: 04/05/2021 I am seeing Mr. Rose in followup. 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 On this admission for sepsis, he had new left-sided weakness and an MRI of the brain showed an acute infarction in the high right parietal region as well as in the left cardona radiata. We had discussed this at length in terms of risk and benefit, risk of rebleeding, recurrent stroke and had made some preliminary discussion to start him on Coumadin in low dose and gradually let the INR drift upward. Apparently, his has changed course and that is not unreasonable and they have elected not at this point to pursue anticoagulation. If anticoagulation is restarted, I would consider repeating a scan once he is therapeutic on Coumadin or if he had no new neurologic symptoms or headache. Today, he looks much the same with nonhomonymous right hemianopsia as well as left upper extremity being about 3+/5. We will sign off at present. Please reconsult if any further advice is necessary.
[2021-04-05] MEDS: TAMSULOSIN HCL 0.4 MG CAP PO SCH (21:06)
[2021-04-05] MEDS: ESCITALOPRAM OXALATE 20 MG TAB PO SCH (21:06)
[2021-04-05] MEDS: FINASTERIDE 5 MG TAB PO SCH (21:06)
[2021-04-06] MEDS ORDERED: ONDANSETRON INJ 2 MG/ML 2 ML VIAL IV PRN (01:10)
[2021-04-06] MEDS: PIPERACILLIN/TAZOBACTAM 3.375 GM in DEXTROSE 5% 100 ML IV SCH ×3 (01:26→17:35)
[2021-04-06 07:17] LABS: Hemoglobin 9.1 g/dL (14.0-18.0); Mean Corpuscular Hemoglobin 32.7 pg (25-34); Mean Corpuscular Hgb Conc 32.5 g/dL (32-36); Mean Corpuscular Volume 100.7 fL (80-100); Mean Platelet Volume 10.4 fL (7.4-10.4); Platelet Count 111 K/uL (130-400); RDW Coefficient of Variation 14.1 % (11.5-14.5); RDW Standard Deviation 51.9 fL (36.4-46.3); Red Blood Count 2.78 M/uL (4.7-6.1); White Blood Count 16.82 K/uL (4.8-10.8)
[2021-04-06 07:45] LABS: Calcium 8.2 mg/dl (8.5-10.1); Est GFR (African American) 57.7 ml/min; Est GFR (Non-African American) 49.8 ml/min; Potassium 4.2 mmol/L (3.5-5.1)
--- NOTE | 2021-04-06 09:17 | Hospitalist Progress Note ---
Date of Service April 06, 2021 Assessment & Plan (1) Hypotension: Septic shock Complicated UTI Chronic Ch catheter since last admission Pseudomonas bacteremia Sepsis due to Pseudomonas, Enterococcus, POA Likely Ch catheter-associated UTI Blood cultures: Pseudomonas--Pansensitive Urine culture: Pseudomonas, Enterococcus -CT ABD:No urinary calculi or hydronephrosis. Ch balloon within the bladder. Enlarged prostate. Moderate bladder wall thickening with adjacent infiltration suggestive of cystitis. Mild rectal wall thickening. No bowel obstruction. Normal appendix. Cholelithiasis. No evidence for acute cholecystitis. Marked cardiomegaly. Trace bilateral pleural effusions. -Ch catheter changed on 03/31/21 in ED -ECHO: unchanged from 01/18/21 -Weaned off of pressors Currently on Zosyn. 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 This likely represents a large infarct with hemorrhagic conversion. Underlying mass lesion or vascular abnormality is considered less likely but not excluded. Continued CT follow-up is recommended. An additional small focus of restricted diffusion is seen within the high right parietal lobe, and there is a punctate focus of restricted diffusion in the left centrum semiovale. These likely represent additional foci of acute to subacute ischemia. There is a 1.0 cm focus of hemosiderin deposition in the left cerebellar hemisphere. This could represent a site of previous hemorrhage or possibly a cavernoma. There are numerous (less than 10) additional punctate foci of hemosiderin deposition seen on the gradient sequence. Underlying amyloid angiopathy could potentially have this appearance. -CT Head:4.7 x 2.9 cm mixed attenuation abnormality within the left occipital lobe with adjacent hypodensity and loss of chacon-white differentiation with mild mass effect. This may reflect an infarct with subacute hemorrhage. A neoplastic process is within the differential although considered less likely. An MRI of the brain with and without contrast is recommended. If MRI is not possible, short-term follow-up head CT in 24 hours is recommended. Suspected age-indeterminate infarcts within the bilateral cerebellar hemispheres. -Carotid USD:No evidence of hemodynamically significant carotid stenosis. -Given H/O A. fib, intracranial hemorrhage, amyloid angiopathy -Repeat CT head showed No significant change in the left occipital lobe infarct which contains a 4.7 cm mildly hyperdense focus suggestive of subacute hemorrhage. Expected evolution of a small right frontoparietal acute infarct. -Neurologist recommendations appreciated On 04/04/21, I spent quite sometime discussing patient's case with Local Coordinator Dr Nye. Patient is at high risk of worsening/new intracranial bleed if anticoagulation is resumed I also share this concern especially with patient needing antibiotics (currently on zosyn) which can enhance anticoagulant effect of warfarin. I informed the patient about the complexities of the management including neurologist recommendation about starting warfarin. I also highlighted the risks associated with resuming this. On 04/05/21 I was able to speak to patient's per his request about this as well. We discussed the risks associated with and without anticoagulation. She stated she spoke to the patient about this yesterday and they will prefer not to resume anticoagulation at this time. She is also looking forward to talking with Palliative care team prior to finalizing discharge plans Patient had right hemianopsia before now blind. New infarcts seen on CT head likely embolic with his cardiac comorbidities (valvulopathies and Afib) Previous hemorrhage stable Discussed new findings with patient and . stated that she will be ok with trial of anticoagulation now compared to before Case discussed with Local Coordinator/Neurologist. Due to size of infarct, neurologist does not recommend anticoagulation at this time. Started on aspirin 81mg Will repeat CT head in AM and monitor. 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 Trace bilateral pleural effusions. Completed antibiotic therapy for previous endocarditis Monitor volume status Continue to hold diuretics for now as MONICO improves. Plan to resume later as needed Atrial fibrillation Recently discontinued anticoagulation secondary to intracranial hemorrhage Rate controlled Esophageal varices Esophagitis Continue pantoprazole BPH Continue finasteride H/O PVD Past tobacco use Aspirin on hold DVT Px: Code Status DNR/DNI Palliative care on board aiding with goals of care. Admission and Anticipated Discharge Date Admission Date: March 31, 2021 Subjective 80-year-old man with history significant for aortic valvular replacement and mitral valvular repair with annuloplasty in 2009, recent hospitalization here at [facility] in 12/2020 and subsequent transfer to [facility] for endocarditis recent left occipital intraparenchymal hematoma in 01/2021 and was discharged off anticoagulation despite history of chronic A. fib to rehab, who presented with fevers, chills, hematuria after outpatient Ch catheter replacement. Managed for septic shock. Required initial management in ICU with pressors which have been weaned off. Blood cultures from 03/31/2021 growing Pseudomonas aeruginosa and urine culture growing Pseudomonas and Enterococcus CT head and MRI showed left occipital lobe infarct with hemorrhagic conversion measuring 4.7 cm Patient reported total blindness some minutes ago Denies any headache, dizziness Denies any worsening of left upper extremity weakness location numbness Denies any change in speech or difficulty swallowing Denies chest pain, palpitations Denies cough, shortness of breath Denies abdominal pain, nausea, vomiting, diarrhea Denies flank pain or suprapubic pain Had episode of fever yesterday Review of Systems Eyes: Complete blindness. Had right hemianopsia before Genitourinary: + difficulty urinating (ch in situ) Neurologic: + localized weakness (LUE); no generalized weakness, no headache(s) and no confusion Physical Exam Constitutional: + well hydrated; no acute distress Awake alert but blank stare Eyes: Blank stare. Pupils equal and reactive Not able see anything/count fingers/see lightflashes from torchlight ENMT: external ear and nose normal, oropharynx normal Respiratory: normal respiratory effort, lungs clear to auscultation Cardiovascular: Rate/Rhythm: + irregularly irregular S1 S2 Gastrointestinal (Abdomen): normal bowel sounds, soft, nontender, no hepatosplenomegaly Neurologic: Pupil equal and Reactive to light No slurred speech or new facial deviation noted Alert and oriented to person place and time. Has good insight Power is 4/5 in left upper extremity and 5/5 in RUE No pronator drift Psychiatric: A+Ox3, euthymic affect Genitourinary: Ch in situ Results & Data Results & Data ([facility]) Vital Signs (Past 12 Hours) Vital Signs Temp Pulse Resp BP Pulse Ox 04/06/21 07:24 36.7 C 65 19 144/75 H 95 04/06/21 03:52 37.0 C 63 16 133/72 94 04/05/21 23:02 36.6 C 64 18 133/75 94 Laboratory Results Laboratory Results - last 24 hr 04/06/21 04/06/21 07:00 07:00 WBC 16.82 H RBC 2.78 L Hgb 9.1 L Hct 28.0 L MCV 100.7 H MCH 32.7 MCHC 32.5 RDW Std Deviation 51.9 H RDW Coeff of Luis 14.1 Plt Count 111 L MPV 10.4 Sodium 137 Potassium 4.2 Chloride 107 Carbon Dioxide 27 Anion Gap 3.0 BUN 27 H Creatinine 1.33 Est Cr Clr Drug Dosing 45.0 Est GFR ( Amer) 57.7 Est GFR (Non-Af Amer) 49.8 BUN/Creatinine Ratio 20.0 Glucose 139 H Calcium 8.2 L
--- NOTE | 2021-04-06 09:34 | CT Scan Report ---
CT head/brain wo con CLINICAL HISTORY: 80 years-old Male with Worsening visual loss. Know CVA. Reassess. Follow-up study in a patient with a left occipital infarct with intraparenchymal hemorrhage. TECHNIQUE: Multiple axial CT images of the head were obtained without contrast. A dose lowering tech nique was utilized adhering to the principles of ALARA. CT DOSE: 1235.91 mGycm COMPARISON: Head CT 04/03/2021, brain MRI 04/01/2021 FINDINGS: Subacute infarct of the left occipital lobe with associated subacute intraparenchymal hematoma measur ing 4.7 cm is unchanged from comparison. Expected evolutionary changes of the acute infarct of the ri ght frontal parietal distribution on image 25. There is a new large area of decreased attenuation inv olving the right occipital and temporal lobes on image 15 overall measuring over 8 cm in greatest dim ension. Blurring of the chacon-white interface. No midline shift, new intracranial hemorrhage or hydroc ephalus. Age-related involutional changes. Motion degraded exam. The calvarium is intact. The paranasal sinuses, mastoid air cells, and middle ear cavities are clear . IMPRESSION: 1. New from 04/03/2021 is a large area of decreased attenuation with blurring of the chacon-white interf karoline within the right occipital and posterior temporal lobes suggestive of an acute infarct. 2. No significant change of the subacute left occipital lobe infarct with associated 4.7 cm subacute intraparenchymal hemorrhage. 3. Expected evolutionary changes of the small right frontal parietal acute infarct. 4. No midline shift or new intracranial hemorrhage. ACT 112: Negative or not required by law. The above report was generated using voice recognition software. It may contain grammatical, syntax o r spelling errors. Electronically signed by: Emmanuel Mcclelland M.D. 04/06/2021 9:32 AM
[2021-04-06] MEDS: PANTOprazole 40 MG TAB PO SCH ×2 (10:01→19:54)
[2021-04-06] MEDS ORDERED: ASPIRIN 81 MG ECTAB PO ONE (12:27)
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
--- NOTE | 2021-04-06 15:54 | Communication Note ---
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 Poe today The infarction on CT scan appears to be fairly large and its location is going to make hemorrhagic transformation a very high risk Plans I believe include another CAT scan tomorrow to assess the size of the infarction and if there is no hemorrhagic transformation then another discussion about whether we place this man back on Coumadin or simply rely on aspirin which is less than ideal treatment I will check back on the chart tomorrow but for now will defer completely to the hospitalist and his line helper regarding whether the risk of starting Coumadin in the setting is going to be outweighed by its benefit Matt Walter MD
[2021-04-06] MEDS: ACETAMINOPHEN 325 MG TAB PO PRN (16:32)
[2021-04-06] MEDS: ESCITALOPRAM OXALATE 20 MG TAB PO SCH (19:54)
[2021-04-06] MEDS: FINASTERIDE 5 MG TAB PO SCH (19:54)
[2021-04-06] MEDS: TAMSULOSIN HCL 0.4 MG CAP PO SCH (19:55)
[2021-04-07] MEDS: PIPERACILLIN/TAZOBACTAM 3.375 GM in DEXTROSE 5% 100 ML IV SCH ×3 (02:40→17:38)
[2021-04-07] MEDS: ACETAMINOPHEN 325 MG TAB PO PRN ×3 (03:28→23:04)
[2021-04-07 06:11] LABS: Hematocrit (blood only) 27.2 % (42-52); Mean Corpuscular Hemoglobin 33.1 pg (25-34); Mean Corpuscular Hgb Conc 33.1 g/dL (32-36); Mean Platelet Volume 10.2 fL (7.4-10.4); Platelet Count 137 K/uL (130-400); Red Blood Count 2.72 M/uL (4.7-6.1); White Blood Count 13.86 K/uL (4.8-10.8)
[2021-04-07 06:34] LABS: BUN Creatinine Ratio 19.1 (10-20); Calcium 8.8 mg/dl (8.5-10.1); Creatinine Clr Calc Pharmacy 50.3 ml/min; Est GFR (African American) 59.9 ml/min; Est GFR (Non-African American) 51.7 ml/min; Potassium 3.7 mmol/L (3.5-5.1)
[2021-04-07] MEDS: PANTOprazole 40 MG TAB PO SCH ×2 (08:10→21:00)
[2021-04-07] MEDS: ASPIRIN 81 MG ECTAB PO SCH (08:10)
--- NOTE | 2021-04-07 09:09 | Hospitalist Progress Note ---
Date of Service April 07, 2021 Assessment & Plan (1) Hypotension: -Septic shock -Complicated UTI Chronic Linares catheter since last admission Pseudomonas bacteremia Sepsis due to Pseudomonas, Enterococcus, POA Likely Linares catheter-associated UTI Blood cultures: Pseudomonas--Pansensitive Urine culture: Pseudomonas, Enterococcus -CT ABD:No urinary calculi or hydronephrosis. Linares balloon within the bladder. Enlarged prostate. Moderate bladder wall thickening with adjacent infiltration suggestive of cystitis. Mild rectal wall thickening. No bowel obstruction. Normal appendix. Cholelithiasis. No evidence for acute cholecystitis. Marked cardiomegaly. Trace bilateral pleural effusions. -Linares catheter changed on 03/31/21 in ED -ECHO: unchanged from 01/18/21 -Weaned off of pressors Currently on Zosyn. ID recommendations appreciated However, with fever and persistent leukocytosis, Repeat blood cultures from yesterday growing GNR. Previous cultures from 04/02/21 was negative Continue IV zosyn and follow up sensitivities With patient's h/o endocarditis, prosthetic valve etc; his persistent bacteremia makes me worry about endocarditis. I discussed this with [employer] Fire[employer] Dr Liu. Though patient is a poor candidate for any valvular procedure at this time, Will get a limited TTE first to reevaluate. 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 This likely represents a large infarct with hemorrhagic conversion. Underlying mass lesion or vascular abnormality is considered less likely but not excluded. Continued CT follow-up is recommended. An additional small focus of restricted diffusion is seen within the high right parietal lobe, and there is a punctate focus of restricted diffusion in the left centrum semiovale. These likely represent additional foci of acute to subacute ischemia. There is a 1.0 cm focus of hemosiderin deposition in the left cerebellar hemisphere. This could represent a site of previous hemorrhage or possibly a cavernoma. There are numerous (less than 10) additional punctate foci of hemosiderin deposition seen on the gradient sequence. Underlying amyloid angiopathy could potentially have this appearance. -CT Head:4.7 x 2.9 cm mixed attenuation abnormality within the left occipital lobe with adjacent hypodensity and loss of chacon-white differentiation with mild mass effect. This may reflect an infarct with subacute hemorrhage. A neoplastic process is within the differential although considered less likely. An MRI of the brain with and without contrast is recommended. If MRI is not possible, short-term follow-up head CT in 24 hours is recommended. Suspected age- indeterminate infarcts within the bilateral cerebellar hemispheres. -Carotid USD:No evidence of hemodynamically significant carotid stenosis. -Given H/O A. fib, intracranial hemorrhage, amyloid angiopathy -Repeat CT head showed No significant change in the left occipital lobe infarct which contains a 4.7 cm mildly hyperdense focus suggestive of subacute hemorrhage. Expected evolution of a small right frontoparietal acute infarct. -Neurologist recommendations appreciated On 04/04/21, I spent quite sometime discussing patient's case with [facility] Fire[facility] Dr Nye. Patient is at high risk of worsening/new intracranial bleed if anticoagulation is resumed I also share this concern especially with patient needing antibiotics (currently on zosyn) which can enhance anticoagulant effect of warfarin. I informed the patient about the complexities of the management including neurologist recommendation about starting warfarin. I also highlighted the risks associated with resuming this. On 04/05/21 I was able to speak to patient's per his request about this as well. We discussed the risks associated with and without anticoagulation. She stated she spoke to the patient about this yesterday and they will prefer not to resume anticoagulation at this time. She is also looking forward to talking with Palliative care team prior to finalizing discharge plans Patient had right hemianopsia before now blind. New infarcts seen on CT head likely embolic with his cardiac comorbidities (valvulopathies and Afib) Previous hemorrhage stable Case discussed with [employer] Fireman/Neurologist. Due to size of infarct, neurologist does not recommend anticoagulation at this time. Started on aspirin 81mg Repeat CT head this morning shows new infarct is stable Patient's CVA likely embolic as patient has Afib, valvular prosthesis. However, with recurrence in bacteremia in the setting of prosthetic valve, there is also the possibility of septic emboli contributing to the strokes. All these in addition to h/o recent intraparenchymal hemorrhage, makes hemorrhagic transformation high risks. Will follow up neurologist's thoughts on this. -Acute renal failure Likely ischemic ATN secondary to septic shock Apprear resolved Cr: 3.8>3.15>2.43>1.77>1.28>1.29>1.33>1.29 Renally adjust medications as needed Avoid nephrotoxic agents as able Monitor renal function Renal function continues to improve -Lactic acidosis Secondary to above Repeat lactic acid levels improved -Hypokalemia Resolved Replete electrolytes as needed Monitor -Mild troponin elevation Secondary to sepsis Denied any anginal symptoms -Chronic systolic heart failure -H/O Bioprosthetic AVR/mitral valve repair -H/O prosthetic valve stenosis -Recent Streptococcus Endocarditis CXR:Mild pulmonary edema, slightly improved since prior exam. Trace bilateral pleural effusions. Completed antibiotic therapy for previous endocarditis Monitor volume status Continue to hold diuretics for now as MONICO improves. Plan to resume later as needed -Atrial fibrillation Recently discontinued anticoagulation secondary to intracranial hemorrhage Rate controlled -Esophageal varices -Esophagitis Continue pantoprazole -BPH Continue finasteride -H/O PVD Past tobacco use Aspirin on hold DVT Px: SCD Code Status DNR/DNI Palliative care on board aiding with goals of care. Admission and Anticipated Discharge Date Admission Date: March 31, 2021 Subjective 80-year-old man with history significant for aortic valvular replacement and mitral valvular repair with annuloplasty in 2009, recent hospitalization here at [facility] in 12/2020 and subsequent transfer to [facility] for endocarditis recent left occipital intraparenchymal hematoma in 01/2021 and was discharged off anticoagulation despite history of chronic A. fib to rehab, who presented with fevers, chills, hematuria after outpatient Linares catheter replacement. Managed for septic shock. Required initial management in ICU with pressors which have been weaned off. Blood cultures from 03/31/2021 growing Pseudomonas aeruginosa and urine culture growing Pseudomonas and Enterococcus CT head and MRI showed left occipital lobe infarct with hemorrhagic conversion measuring 4.7 cm Patient had right hemianopsia before but developed complete blindness on 04/06/[address]. [address] head showed new large right occipital and posterior temporal lobe infarct Patient seen and examined Patient has been having intermittent fever spikes and persistent leukocytosis despite being on adequate antibiotic coverage and negative blood cultures from 04/02/21. Repeat blood culture now growing GNR. Patient has no new complaints Complains of persistent blindness, left upper extremity weakness unchanged and had chills overnight Denied all other complaints on review of systems Physical Exam Constitutional: + well hydrated; no acute distress Eyes: PERRL, conjunctivae normal, anicteric sclerae ENMT: external ear and nose normal, oropharynx normal Respiratory: normal respiratory effort, lungs clear to auscultation Cardiovascular: Rate/Rhythm: + irregularly irregular Heart Sounds: + murmur Gastrointestinal (Abdomen): normal bowel sounds, soft, nontender, no hepatosplenomegaly Neurologic: +Blindness No slurred speech/facial deviation noted Alert and oriented to person place and time. Has good insight Power is 4/5 in left upper extremity and 5/5 in RUE Psychiatric: A+Ox3, euthymic affect Results & Data Results & Data ([facility]) Vital Signs (Past 12 Hours) Vital Signs Temp Pulse Resp BP Pulse Ox 04/07/21 07:52 37.1 C 74 20 130/78 90 04/07/21 04:56 37.1 C 04/07/21 03:17 38.6 C H 74 20 147/74 H 90 04/06/21 23:12 37.4 C 64 20 143/67 H 94 Laboratory Results Laboratory Results - last 24 hr 04/07/21 04/07/21 04/07/21 05:41 05:41 Unknown WBC 13.86 H RBC 2.72 L Hgb 9.0 L Hct 27.2 L MCV 100.0 MCH 33.1 MCHC 33.1 RDW Std Deviation 51.0 H RDW Coeff of Luis 14.0 Plt Count 137 MPV 10.2 Sodium 137 Potassium 3.7 Chloride 106 Carbon Dioxide 24 Anion Gap 7.0 BUN 25 H Creatinine 1.29 Est Cr Clr Drug Dosing 50.3 Est GFR ( Amer) 59.9 Est GFR (Non-Af Amer) 51.7 BUN/Creatinine Ratio 19.1 Glucose 111 H Calcium 8.8 Urine Color Pending Urine Appearance Pending Urine pH Pending Ur Specific [place] Pending Urine Protein Pending Urine Glucose (UA) Pending Urine Ketones Pending Urine Blood Pending Urine Nitrite Pending Urine Bilirubin Pending Urine Urobilinogen Pending Ur Leukocyte Esterase Pending
--- NOTE | 2021-04-07 09:30 | Cardiology Progress Note ---
Date of Service April 07, 2021 Assessment & Plan (1) Stroke: Recurrent large cerebrovascular accident 04/06/2021. Due to high risk of hemorrhagic conversion, anticoagulation has not been initiated. Patient carries a history of prior intracranial bleeding and possible amyloid angiopathy. Neur ology input appreciated. Repeat CT pending. Continue low-dose aspirin. (2) Sepsis: Pseudomonas aeruginosa and Enterococcus faecalis urosepsis per culture . 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 Patient remains at risk for recurrent endocarditis. He is not a candidate for valvular intervention. 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 Patient is not a candidate for valvular intervention. Prognosis is poor. (4) Atrial fibrillation: Chronic rate controlled atrial fibrillation. Anticoagulation discontinued secondary to intracranial bleed. Anticoagulation remains on hold currently despite recurrent CVA due to risk of hemorrhagic conversion. Admission and Anticipated Discharge Date Admission Date: March 31, 2021 Subjective Patient seen and examined the bedside. Consuming his a.m. meal. Vision has not improved. Scheduled for repeat CT today. Denies chest pain or shortness of breath. Telemetry reveals atrial fibrillation heart rate in the 60s. Review of Systems Review of Systems: All systems reviewed & are unremarkable except as noted in Subjective Physical Exam Constitutional: well nourished; no acute distress Respiratory: no respiratory distress and no labored breathing Auscultation: + crackles (Left base); no rales, no rhonchi and no wheezes Cardiovascular: Rate/Rhythm: + irregularly irregular Heart Sounds: normal S1, normal S2 and + murmur (2/6 systolic murmur heard best at the base.) Gastrointestinal (Abdomen): Inspection/Auscultation: abdomen normal to inspection; abdomen not distended and + abnormal bowel sounds Percussion/Palpation: abdomen soft; abdomen nontender, no guarding and abdomen not rigid Results & Data ([facility]) Vital Signs (Past 12 Hours) Vital Signs Temp Pulse Resp BP Pulse Ox 04/07/21 07:52 37.1 C 74 20 130/78 90 04/07/21 04:56 37.1 C 04/07/21 03:17 38.6 C H 74 20 147/74 H 90 04/06/21 23:12 37.4 C 64 20 143/67 H 94 (1) Sepsis Sepsis acute organ dysfunction status: unspecified Sepsis type: sepsis due to unspecified organism Qualified Code(s): A41.9 - Sepsis, unspecified organism
--- NOTE | 2021-04-07 09:34 | CT Scan Report ---
CT head/brain wo con CLINICAL HISTORY: Cerebral infarct. COMPARISON STUDY: 04/06/2021 TECHNIQUE: Axial CT of the brain is performed from the vertex to the skull base. IV contrast was not administered for this examination. A dose lowering technique was utilized adhering to the principles of ALARA. CT DOSE: 1574.32 mGy.cm FINDINGS: There is redemonstration of bilateral temporal occipital infarcts. There is minimal mass effect with effacement of the subjacent sulci. There is redemonstration of subacute hemorrhage within the left oc cipital infarct. The findings remain similar to the prior study. There is no hydrocephalus. In addition to the subacute bilateral infarcts, there are patchy white matter hypodensities likely on a small vessel ischemic basis. There is no evidence of pathologic ventricular dilatation. There is no evidence of acute sinusitis IMPRESSION: 1. No significant change in the appearance of bilateral temporo-occipital lobe infarcts. 2. No evidence of midline shift. No areas of acute hemorrhage. ACT 112: Negative or not required by law. Electronically signed by: Goyo Cordova M.D. 04/07/2021 9:32 AM
[2021-04-07 11:02] LABS: Appearance Urine Turbid (Clear); Bacteria Urine Automated Negative (Negative); Blood Urine 3+ (Negative); Color Urine Orange; Glucose Urine UA Negative (Negative); Ketones Urine Negative (Negative); Leukocyte Esterase Urine 1+ (Negative); Nitrite Urine Negative (Negative); Protein Urine 1+ (Negative); RBC Urine Automated >30 /hpf (0-4); Specific Gravity Urine 1.023 (1.000-1.030); Urobilinogen Urine Positive (Negative)
[2021-04-07 11:08] LABS: Bilirubin Urine 1+ (Negative)
[2021-04-07 11:20] LABS: Uric Acid Crystals Urine Present (None Prsent)
[2021-04-07 11:21] LABS: Mucus Urine Present (None Prsent)
--- NOTE | 2021-04-07 12:05 | Communication Note ---
Date of Service: April 07, 2021 I saw Mr. Giron briefly today while he was having his echocardiographic study. He appeared to be alert but clearly was making no visual contact and still s ubjectively had no perception of his environment but was cooperating with the echocardiac graphics manager had a mild left-sided weakness. The CT scan this morning shows further evolution of the new right occipital temporal infarction with no real significant edema with no hemorrhagic transformation at least a 24 hours. The old areas of infarction remain unchanged with no new areas of hemorrhage The policy outlined with Dr. Gomez and Dr. Poe will be applied i.e. another CT scan in a week and if this shows no hemorrhagic transformation I think he needs to be started back on Coumadin slowly I was misinformed yesterday thinking that these were mechanical valves and there was some urgency in getting him back on Coumadin but it appears it neither the valves are mechanical and the mitral valve may have had a repair but not had total replacement in the aortic is bioprosthetic so the urgency to reinstitute Coumadin is not based on the valvular issue but rather on a recurrent embo lization which lately has been fairly frequent I will continue to check back on the chart by computer and certainly if there is any clinical change the policy should be to immediately do another CT scan as these occipital lobe infarctions have a high propensity for hemorrhagic transformation and acute change in mental status could be either hemorrhage or another shower of emboli neither which unfortunately are we going to be able to treat The patient appropriately in my opinion is a DO NOT RESUSCITATE DO NOT INTUBATE as he has a host of medical problems that seem to be accumulating with great rapidity over the past year and is now cortically blind with a left hemiparesis and his quality of life at this point is extremely poor and unfortunately unlikely to improve much from a neurologic point of view Matt Walter MD
[2021-04-07] MEDS: ESCITALOPRAM OXALATE 20 MG TAB PO SCH (21:00)
[2021-04-07] MEDS: FINASTERIDE 5 MG TAB PO SCH (21:00)
[2021-04-07] MEDS: TAMSULOSIN HCL 0.4 MG CAP PO SCH (21:00)
[2021-04-08] MEDS: PIPERACILLIN/TAZOBACTAM 3.375 GM in DEXTROSE 5% 100 ML IV SCH ×3 (03:07→17:43)
[2021-04-08 06:13] LABS: Hematocrit (blood only) 28.9 % (42-52); Hemoglobin 9.6 g/dL (14.0-18.0); Mean Corpuscular Hemoglobin 33.3 pg (25-34); Mean Corpuscular Hgb Conc 33.2 g/dL (32-36); Mean Corpuscular Volume 100.3 fL (80-100); Mean Platelet Volume 9.9 fL (7.4-10.4); Platelet Count 166 K/uL (130-400); RDW Coefficient of Variation 13.8 % (11.5-14.5); Red Blood Count 2.88 M/uL (4.7-6.1); White Blood Count 12.17 K/uL (4.8-10.8)
[2021-04-08 06:44] LABS: BUN Creatinine Ratio 17.2 (10-20); Calcium 8.3 mg/dl (8.5-10.1); Creatinine Clr Calc Pharmacy 51.1 ml/min; Est GFR (African American) 67.4 ml/min; Est GFR (Non-African American) 58.1 ml/min; Potassium 3.5 mmol/L (3.5-5.1)
[2021-04-08] MEDS: PANTOprazole 40 MG TAB PO SCH ×2 (08:20→21:26)
[2021-04-08] MEDS: ASPIRIN 81 MG ECTAB PO SCH (08:20)
--- NOTE | 2021-04-08 09:43 | Hospitalist Progress Note ---
Date of Service April 08, 2021 Assessment & Plan (1) Hypotension: -Septic shock -Complicated UTI 80-year-old man with history significant for aortic valvular replacement and mitral valvular repair with annuloplasty in 2009, recent hospitalization here at [facility] in 12/2020 and subsequent transfer to [facility] [place] for endocarditis recent left occipital intraparenchymal hematoma in 01/2021 and was discharged off anticoagulation despite history of chronic A. fib to rehab, who presented with fevers, chills, hematuria after outpatient Linares catheter replacement. Managed for septic shock. Required initial management in ICU with pressors which have been weaned off. Blood cultures from 03/31/2021 growing Pseudomonas aeruginosa and urine culture growing Pseudomonas and Enterococcus Pseudomonas bacteremia Sepsis due to Pseudomonas, Enterococcus, POA Likely Linares catheter-associated UTI Chronic Linares catheter since last admission -Linares catheter changed on 03/31/21 in ED -ECHO: unchanged from 01/18/21 -Weaned off of pressors Currently on Zosyn. Patient continues to have persistent fevers and leukocytosis. Repeat cultures still growing GNR Patient comorbidities, history of bioprosthetic valve for mitral valvular repair; infective endocarditis cannot be ruled out. TTE did not show any vegetations. Per cardiology, patient is not a candidate for valvular intervention. 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 This may reflect an infarct with subacute hemorrhage. Patient had right hemianopsia before but developed total blindness on 04/06/21 New infarcts seen on CT head likely embolic with his cardiac comorbidities (valvulopathies and Afib) Previous hemorrhage stable Case discussed with Software Engineer Backend/Neurologist. Due to size of infarct, neurologist does not recommend anticoagulation at this time. 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 Admission and Anticipated Discharge Date Admission Date: March 31, 2021 Subjective Patient seen and examined. No new complaints Persistent cortical blindness and Left upper extremity weakness Continues to have fevers Physical Exam Constitutional: + well hydrated; no acute distress Eyes: PERRL, conjunctivae normal, anicteric sclerae ENMT: external ear and nose normal, oropharynx normal Respiratory: normal respiratory effort, lungs clear to auscultation Cardiovascular: Rate/Rhythm: + irregularly irregular Heart Sounds: + murmur Gastrointestinal (Abdomen): normal bowel sounds, soft, nontender, no hepatosplenomegaly Neurologic: +Blindness No slurred speech/facial deviation noted Alert and oriented to person place and time. Has good insight Power is 4/5 in left upper extremity and 5/5 in RUE Psychiatric: A+Ox3, euthymic affect Genitourinary: Linares in situ Results & Data Results & Data ([facility]) Vital Signs (Past 12 Hours) Vital Signs Temp Pulse Resp BP Pulse Ox 04/08/21 07:44 38.3 C H 78 20 157/87 H 92 04/08/21 03:57 36.8 C 64 16 143/76 H 90 04/07/21 23:00 37.8 C H 71 16 163/82 H 92 Laboratory Results Laboratory Results - last 24 hr 04/07/21 04/07/21 04/08/21 20:41 Unknown 05:47 WBC 12.17 H RBC 2.88 L Hgb 9.6 L Hct 28.9 L MCV 100.3 H MCH 33.3 MCHC 33.2 RDW Std Deviation 50.0 H RDW Coeff of Luis 13.8 Plt Count 166 MPV 9.9 Sodium Potassium Chloride Carbon Dioxide Anion Gap BUN Creatinine Est Cr Clr Drug Dosing Est GFR ( Amer) Est GFR (Non-Af Amer) BUN/Creatinine Ratio Glucose POC Glucose 170 H Calcium Urine Color [place] Urine Appearance Turbid A Urine pH 5.0 Ur Specific [place] 1.023 Urine Protein 1+ H Urine Glucose (UA) Negative Urine Ketones Negative Urine Blood 3+ H Urine Nitrite Negative Urine Bilirubin 1+ H Urine Urobilinogen Positive H Ur Leukocyte Esterase 1+ H Urine WBC (Auto) 10-30 H Urine RBC (Auto) >30 H U Hyaline Cast (Auto) 1-5 U Epithel Cells (Auto) 10-20 H Urine Bacteria (Auto) Negative Uric Acid Crystals Present A Urine Mucus Present A 04/08/21 04/08/21 05:47 07:23 WBC RBC Hgb Hct MCV MCH MCHC RDW Std Deviation RDW Coeff of Luis Plt Count MPV Sodium 136 Potassium 3.5 Chloride 105 Carbon Dioxide 27 Anion Gap 4.0 BUN 20 H Creatinine 1.17 Est Cr Clr Drug Dosing 51.1 Est GFR ( Amer) 67.4 Est GFR (Non-Af Amer) 58.1 BUN/Creatinine Ratio 17.2 Glucose 120 H POC Glucose 168 H Calcium 8.3 L Urine Color Urine Appearance Urine pH Ur Specific [place] Urine Protein Urine Glucose (UA) Urine Ketones Urine Blood Urine Nitrite Urine Bilirubin Urine Urobilinogen Ur Leukocyte Esterase Urine WBC (Auto) Urine RBC (Auto) U Hyaline Cast (Auto) U Epithel Cells (Auto) Urine Bacteria (Auto) Uric Acid Crystals Urine Mucus
--- NOTE | 2021-04-08 11:09 | Cardiology Progress Note ---
Date of Service April 08, 2021 Assessment & Plan (1) Stroke: Recurrent large cerebrovascular accident 04/06/2021. Due to high risk of hemorrhagic conversion, anticoagulation has not been initiated. Patient carries a history of prior intracranial bleeding and possible amyloid angiopathy. Neur ology input appreciated. Repeat CT pending. Continue low-dose aspirin. (2) Sepsis: Recurrent gram-negative bacilli in blood cultures from 04/06 and 04/07. F inal sensitivities pending. Pseudomonas aeruginosa and Enterococcus faecalis urosepsis per culture 03/31/2021. 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 Patient remains at risk for recurrent endocarditis. He is not a candidate for valvular intervention. Repeat transthoracic echocardiogram performed 04/07 without evidence of large vegetation or valvular insufficiency. I do not believe a repeat transesophageal echocardiogram would twisting frame changer at this time. 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 Patient is not a candidate for valvular intervention. Prognosis is poor. (4) Atrial fibrillation: Chronic rate controlled atrial fibrillation. Anticoagulation discontinued secondary to intracranial bleed. Anticoagulation remains on hold currently despite recurrent CVA due to risk of hemorrhagic conversion. Current plan for repeat CT in 1 week and consideration for restarting anticoagulation if there is no evidence of hemorrhagic conversion. Neurology input appreciated. Admission and Anticipated Discharge Date Admission Date: March 31, 2021 Subjective Patient seen and examined at the bedside. Blood cultures demonstrate persistent gram-negative bacteremia. Repeat CT performed 04/07/2021 without evidence of hemorrhagic conversion. Eyesight unchanged. Telemetry reveals atrial fibrillation in the 60s. Review of Systems Review of Systems: All systems reviewed & are unremarkable except as noted in Subjective Physical Exam Constitutional: well nourished; no acute distress Respiratory: no respiratory distress and no labored breathing Auscultation: + crackles (Left base); no rales, no rhonchi and no wheezes Cardiovascular: Rate/Rhythm: + irregularly irregular Heart Sounds: normal S1, normal S2 and + murmur (2/6 systolic murmur heard best at the base.) Gastrointestinal (Abdomen): Inspection/Auscultation: abdomen normal to inspection; abdomen not distended and + abnormal bowel sounds Percussion/Palpation: abdomen soft; abdomen nontender, no guarding and abdomen not rigid Results & Data ([facility]) Vital Signs (Past 12 Hours) Vital Signs Temp Pulse Resp BP Pulse Ox 04/08/21 07:44 38.3 C H 78 20 157/87 H 92 04/08/21 03:57 36.8 C 64 16 143/76 H 90 (1) Sepsis Sepsis acute organ dysfunction status: unspecified Sepsis type: sepsis due to unspecified organism Qualified Code(s): A41.9 - Sepsis, unspecified organism
[2021-04-08] MEDS: ACETAMINOPHEN 325 MG TAB PO PRN ×2 (11:48→21:26)
[2021-04-08] MEDS: buPROPion XL 150 MG TABCR PO SCH (14:45)
[2021-04-08] MEDS: ESCITALOPRAM OXALATE 20 MG TAB PO SCH (21:27)
[2021-04-08] MEDS: FINASTERIDE 5 MG TAB PO SCH (21:27)
[2021-04-08] MEDS: TAMSULOSIN HCL 0.4 MG CAP PO SCH (21:27)
[2021-04-09] MEDS: PIPERACILLIN/TAZOBACTAM 3.375 GM in DEXTROSE 5% 100 ML IV SCH ×2 (02:33→11:29)
[2021-04-09 05:48] LABS: Hematocrit (blood only) 26.8 % (42-52); Hemoglobin 8.9 g/dL (14.0-18.0); Mean Corpuscular Hemoglobin 32.8 pg (25-34); Mean Corpuscular Hgb Conc 33.2 g/dL (32-36); Mean Corpuscular Volume 98.9 fL (80-100); Mean Platelet Volume 9.8 fL (7.4-10.4); Platelet Count 171 K/uL (130-400); RDW Coefficient of Variation 13.7 % (11.5-14.5); RDW Standard Deviation 49.2 fL (36.4-46.3); Red Blood Count 2.71 M/uL (4.7-6.1); White Blood Count 15.92 K/uL (4.8-10.8)
[2021-04-09 06:19] LABS: BUN Creatinine Ratio 16.3 (10-20); Calcium 8.2 mg/dl (8.5-10.1); Creatinine Clr Calc Pharmacy 52.5 ml/min; Est GFR (African American) 69.5 ml/min; Potassium 3.4 mmol/L (3.5-5.1)
[2021-04-09] MEDS: PANTOprazole 40 MG TAB PO SCH ×2 (08:59→20:33)
[2021-04-09] MEDS: ASPIRIN 81 MG ECTAB PO SCH (08:59)
--- NOTE | 2021-04-09 10:02 | Hospitalist Progress Note ---
Date of Service April 09, 2021 Assessment & Plan (1) Hypotension: -Septic shock -Complicated UTI 80-year-old man with history significant for aortic valvular replacement and mitral valvular repair with annuloplasty in 2009, [facility] and subsequent transfer to [facility] [place] for endocarditis recent left occipital intraparenchymal hematoma in 01/2021 and was discharged off anticoagulation despite history of chronic A. fib to rehab, who presented with fevers, chills, hematuria after outpatient Ch catheter replacement. Managed for septic shock. Required initial management in ICU with pressors which have been weaned off. Blood cultures 03/31/2021: Pseudomonas aeruginosa Urine culture 03/31/21: Pseudomonas and Enterococcus Blood cultures 04/02/21: Negative -Ch catheter changed on 03/31/21 in ED -ECHO: unchanged from 01/18/21 -Weaned off of pressors Has been on zosyn with persistent fevers and leukocytosis Repeat blood cultures on 04/06/21 and 04/07/21 growing pseudomonas Repeat Urine culture 04/06/21 negative so far Patient comorbidities, history of bioprosthetic valve for mitral valvular repair; infective endocarditis cannot be ruled out. TTE did not show any vegetations. Per cardiology, patient is not a candidate for valvular intervention. I discussed the patient extensively with Dr Warren (infectious disease specialist) Based on sensitivities of blood culture of 04/06/21, pseudomonas appear to now be resistant to cefepime and intermediate to zosyn. This may explain persistent bacteremia. Antibiotics changed to IV Meropenem. Repeat blood cultures. Will need IV antibiotics for 6 weeks from negative cult ure Panscan with CT chest/abd/pelvis w/co to look for other nidus/sources/abscess. 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 This may reflect an infarct with subacute hemorrhage. Patient had right hemianopsia before but developed total blindness on 04/06/21 New infarcts seen on CT head likely embolic with his cardiac comorbidities (valvulopathies and Afib) Previous hemorrhage stable Case discussed with Rodding Machine Tender/Neurologist. Due to size of infarct, neurologist does not recommend anticoagulation at this time. Started on aspirin 81mg No anticoagulation for now due to high risk of hemorrhagic transformation Will need repeat Head CT in 1 week prior to assessing for resumption of anticoagulation Poor prognosis -Acute renal failure Likely ischemic ATN secondary to septic shock Resolved Cr: 3.8>3.15>2.43>1.77>1.28>1.29>1.33>1.29>1.17 Avoid nephrotoxic agents as able Monitor renal function Renal function continues to improve -Lactic acidosis -Hypokalemia Resolved -Mild troponin elevation Secondary to sepsis Denied any anginal symptoms -Chronic systolic heart failure -H/O Bioprosthetic AVR/mitral valve repair -H/O prosthetic valve stenosis -Recent Streptococcus Endocarditis Rodding Machine Tender recommendations appreciated -Atrial fibrillation Recently discontinued anticoagulation secondary to intracranial hemorrhage Rate controlled Anticoagulation plans as detailed above -Esophageal varices -Esophagitis Continue pantoprazole -BPH Continue finasteride -H/O PVD Past tobacco use Aspirin on hold DVT Px: SCD Code Status DNR/DNI Palliative care on board aiding with goals of care. Admission and Anticipated Discharge Date Admission Date: March 31, 2021 Subjective Patient seen and examined. No new complaints Persistent cortical blindness and Left upper extremity weakness Continues to have fevers Reports weakness Has chronic ch Review of Systems Review of Systems: All systems reviewed & are unremarkable except as noted in Subjective Physical Exam Constitutional: + well hydrated; no acute distress Eyes: PERRL, conjunctivae normal, anicteric sclerae ENMT: external ear and nose normal, oropharynx normal Respiratory: normal respiratory effort, lungs clear to auscultation Cardiovascular: Rate/Rhythm: + irregularly irregular Heart Sounds: + murmur Gastrointestinal (Abdomen): normal bowel sounds, soft, nontender, no hepatosplenomegaly Neurologic: PERRL, EOMI, accommodation nl, no face palsy, no dysarthria +blindness Psychiatric: A+Ox3, euthymic affect Genitourinary: Ch in situ Results & Data Results & Data ([facility]) Vital Signs (Past 12 Hours) Vital Signs Temp Pulse Resp BP Pulse Ox 04/09/21 07:42 37.2 C 63 19 174/87 H 96 04/09/21 02:47 36.6 C 64 20 158/86 H 90 04/08/21 23:32 36.7 C 67 19 142/80 H 91 Laboratory Results Abnormal lab results 04/08/21 04/08/21 04/09/21 Range/Units 11:50 16:24 05:20 WBC 15.92 H (4.8-10.8) K/uL RBC 2.71 L (4.7-6.1) M/uL Hgb 8.9 L (14.0-18.0) g/dL Hct 26.8 L (42-52) % RDW Std Deviation 49.2 H (36.4-46.3) fL Potassium (3.5-5.1) mmol/L BUN (7-18) mg/dl Glucose (70-99) mg/dl POC Glucose 145 H 155 H (70-99) mg/dl Calcium (8.5-10.1) mg/dl 04/09/21 Range/Units 05:20 WBC (4.8-10.8) K/uL RBC (4.7-6.1) M/uL Hgb (14.0-18.0) g/dL Hct (42-52) % RDW Std Deviation (36.4-46.3) fL Potassium 3.4 L (3.5-5.1) mmol/L BUN 19 H (7-18) mg/dl Glucose 111 H (70-99) mg/dl POC Glucose (70-99) mg/dl Calcium 8.2 L (8.5-10.1) mg/dl
[2021-04-09] MEDS ORDERED: MEROPENEM CONSULT ACITVE PRN (10:51)
--- NOTE | 2021-04-09 10:51 | Cardiology Progress Note ---
Date of Service April 09, 2021 Assessment & Plan (1) Stroke: Recurrent large cerebrovascular accident 04/06/2021. Due to high risk of hemorrhagic conversion, anticoagulation has not been initiated. Patient carries a history of prior intracranial bleeding and possible amyloid angiopathy. Neur ology input appreciated. Repeat CT pending. Continue low-dose aspirin. (2) Sepsis: Recurrent gram-negative bacilli in blood cultures from 04/06 and 04/07. P ersistent positive cultures likely secondary to ineffective antibiotic therapy. Pseudomonas resistant to cefepime, and ceftazidime. Intermediate sensitivity to piperacillin/tazobactam. Organism is sensitive to ciprofloxacin, gentamicin, levofloxacin, meropenem, and tobramycin. Transition antibiotics as per internal medicine and infectious disease recommendations. Pseudomonas aeruginosa and Enterococcus faecalis urosepsis per culture 03/31/2021. 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 Patient remains at risk for recurrent endocarditis. He is not a candidate for valvular intervention. Repeat transthoracic echocardiogram performed 04/07 without evidence of large vegetation or valvular insufficiency. I do not ronnie prema a repeat transesophageal echocardiogram would change director at this time. 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 Patient is not a candidate for valvular intervention. Possible recurrent endocarditis despite normal transthoracic echocardiogram. Medical management recommended. Prognosis is poor. (4) Atrial fibrillation: Chronic rate controlled atrial fibrillation. Anticoagulation discontinued secondary to intracranial bleed. Anticoagulation remains on hold currently despite recurrent CVA due to risk of hemorrhagic conversion. Current plan for repeat CT in 1 week and consideration for restarting anticoagulation if there is no evidence of hemorrhagic conversion. Neurology input appreciated. Admission and Anticipated Discharge Date Admission Date: March 31, 2021 Subjective Patient seen and examined at the bedside. No changes overnight. Telemetry reveals atrial fibrillation in the 60s. Vision unchanged. No new focal deficits. No fevers recorded. Review of Systems Review of Systems: All systems reviewed & are unremarkable except as noted in Subjective Physical Exam Constitutional: well nourished; no acute distress Respiratory: no respiratory distress and no labored breathing Auscultation: + crackles (Left base); no rales, no rhonchi and no wheezes Cardiovascular: Rate/Rhythm: + irregularly irregular Heart Sounds: normal S1, normal S2 and + murmur (2/6 systolic murmur heard best at the base.) Gastrointestinal (Abdomen): Inspection/Auscultation: abdomen normal to inspection; abdomen not distended and + abnormal bowel sounds Percussion/Palpation: abdomen soft; abdomen nontender, no guarding and abdomen not rigid Results & Data ([facility]) Vital Signs (Past 12 Hours) Vital Signs Temp Pulse Pulse Resp BP Pulse Ox 04/09/21 08:00 63 04/09/21 07:42 37.2 C 63 19 174/87 H 96 04/09/21 02:47 36.6 C 64 20 158/86 H 90 04/08/21 23:32 36.7 C 67 19 142/80 H 91 (1) Sepsis Sepsis acute organ dysfunction status: unspecified Sepsis type: sepsis due to unspecified organism Qualified Code(s): A41.9 - Sepsis, unspecified organism
[2021-04-09] MEDS ORDERED: MEROPENEM 1,000 MG in SYRINGE 0 ML IV SCH (11:00)
[2021-04-09] MEDS ORDERED: OPTIRAY 300 100mL IV ONE (11:17)
[2021-04-09] MEDS ORDERED: MEROPENEM 500 MG in SYRINGE 0 ML IV SCH (11:30)
[2021-04-09] MEDS: ACETAMINOPHEN 325 MG TAB PO PRN (11:42)
--- NOTE | 2021-04-09 11:52 | CT Scan Report ---
CT SCAN OF THE ABDOMEN AND PELVIS WITH IV CONTRAST CLINICAL HISTORY: Bacteremia. COMPARISON STUDY: Abdominal CT dated 03/31/2021. TECHNIQUE: Following the IV administration of 89 cc of Optiray 300, CT scan of the abdomen and pelvi s is performed from the lung bases to the proximal femora. Images are reviewed in the axial, sagittal , and coronal planes. IV contrast was administered without complication. A dose lowering technique wa s utilized adhering to the principles of ALARA. The examination is degraded by motion artifact as wel l as metallic artifact from spinal hardware. FINDINGS: Lung bases: The patient is status post midline sternotomy and cardiac valve surgery. The heart is mar kedly enlarged noting trace pericardial effusion. There are coronary artery calcifications. A small h iatal hernia is noted. A calcified granuloma is noted in the right lower lobe. There are small pleura l effusions with bibasilar atelectasis. Liver: The contrast-enhanced liver is cirrhotic in morphology and heterogeneous in attenuation. There is hypertrophy of the left lobe and nodularity of the surface contour. There is no intrahepatic bili damian ductal dilatation. The hepatic veins and portal veins are patent. Gallbladder: There are large calcified gallstones with no CT evidence of acute cholecystitis. Spleen: Normal in size and attenuation. There are calcified splenic granulomas. Pancreas: Moderately atrophic and grossly unremarkable. Adrenal glands: Unremarkable. Kidneys: The contrast enhanced demonstrate cortical atrophy and are without hydronephrosis. The kidne ys enhance symmetrically. Abdominal vasculature: The abdominal aorta is normal in course and caliber noting advanced atheroscle rotic calcification. Bowel: There is circumferential rectal wall thickening with perirectal infiltration. No bowel obstruc tion is identified. The appendix is normal as visualized. Peritoneum: There is no intraperitoneal free air or abdominal ascites. There is a fat-containing umbi lical hernia. Lymphadenopathy: None. Pelvic viscera: The bladder is decompressed around a Linares catheter. The bladder wall appears thicken ed and there is pericystic inflammation. The prostate gland is enlarged and heterogeneous, measuring 6.1 cm in transverse diameter. There is median lobe hypertrophy. A 2.2 x 1.4 cm fluid collection is s uggested within the posterior right aspect of the prostate gland on image #[id number]. A second small fluid collection is suggested within the anterior left aspect of the prostate gland on image #380 measuring 2.1 x 1.2 cm. Mild periprostatic infiltration is noted. There is evidence of bilateral inguinal kamaljit iorrhaphy. Skeletal structures: The skeletal structures are osteopenic. There is mild to moderate lumbosacral sp ondylosis. No lytic or blastic lesions are seen. Spinal rods are noted in the lower thoracic spine. IMPRESSION: 1. Findings suggest cystitis and prostatitis. Correlate with clinical findings and urinalysis. 2. There are 2 low-attenuation fluid collections suggested in the prostate gland is above. These are highly suspicious for small prostatic abscesses. 3. Findings suggest proctitis. 4. Cardiomegaly and small pleural effusions. 5. Cholelithiasis. 6. Cirrhotic liver morphology. 7. Additional findings as above. ACT 112: Negative or not required by law. Electronically signed by: Rome Mendoza M.D. 04/09/2021 11:51 AM
--- NOTE | 2021-04-09 12:09 | CT Scan Report ---
CT OF THE CHEST WITH IV CONTRAST CLINICAL HISTORY: Persistent bacteremia. Assessing for sources/abscess COMPARISON STUDY: Chest CT January 19, 2021. Chest radiograph April 01, 2021. TECHNIQUE: Following IV administration of 89 mL of Optiray, helical axial images of the chest were o btained. Sagittal and coronal reconstructions were viewed as well as maximal intensity projections o n an independent 3-D workstation. Automated exposure control was utilized for the study. A dose low ering technique was utilized adhering to the principles of ALARA. CT DOSE: 1047.73 mGy.cm FINDINGS: Note is made of median sternotomy wires, postoperative findings within the spine and prosth etic mitral and aortic valves. Marked cardiomegaly is noted. There is no central pulmonary embolus. N ote is made of irregularity of the wall of the left atrial appendage. While not definitive, the findi ngs favor thrombus which measures up to approximately 3.6 cm. Small bilateral pleural effusions are n oted. There is no pneumothorax. Interlobular septal thickening is present. Scattered mild airspace op acities within the lungs are noted. Mildly enlarged mediastinal and bilateral hilar lymph nodes are s imilar to prior exam. There are calcified right hilar nodes. Abdomen and pelvis will be reported sepa rately. IMPRESSION: 1. Wall irregularity of the left atrial appendage. While not definitive, the findings favor left atri al appendage thrombus. Consideration for further evaluation with cardiac echo is recommended. 2. Small bilateral pleural effusions. 3. Marked cardiomegaly. Interstitial pulmonary edema. Superimposed mild airspace opacities may reflec t an infectious process or alveolar pulmonary edema. ACT 112: Negative or not required by law. Electronically signed by: Randell Humphreys M.D. 04/09/2021 12:08 PM
--- NOTE | 2021-04-09 13:54 | Palliative Care Progress Note ---
Date of Service April 09, 2021 Assessment & Plan (1) Palliative care encounter: I talked with Mr. Rose . He wasAAOx3 and able to participate in the conversation in a meaningful way, he is very sharp. He denies any pain or discomfort, but is really saddened by his loss of vision. He states that he can see movement but nothing clearly. He stated that reading financial market books, playing on the computer, and watching sports. He stated that if he is not able to do those things, he is not sure 'why we are doing any of this'. I asked him to discuss further and he said he just wants to go home, but would like to still do IV abx if possible. Discussed his care with hospitalist, nursing, and case management. Ultimately, his bacteremia has become resistant to Cefepime and Zosyn. He has been started on IV Meropenem by the recommendation of ID. He will remain inpatient until a negative blood culture comes back, unless the pt and his would want to transition to a more hospice approach. The has previously stated that she feels comfortable with caring for him at home if she has someone to administer the antibiotics. They have a one floor home and a good set up for him to be at home. We discussed his concerns about his declining function and poor prognosis. The disease case manager stated that she just talked to the who is on her way in to the hospital, will follow up with her, but the indicated IV abx was important to both of them to coninue for now. (2) Stroke: (3) CHF (congestive heart failure): (4) Atrial fibrillation: (5) Prosthetic aortic valve stenosis: Admission and Anticipated Discharge Date Admission Date: March 31, 2021 Subjective I talked with Mr. Rose . He wasAAOx3 and able to participate in the conversation in a meaningful way, he is very sharp. He denies any pain or discomfort, but is really saddened by his loss of vision Discussed his care with hospitalist, nursing, and case management. See A/P for further details Review of Systems Review of Systems: [place] Symptom Assessment Scale Pain 0/3 Dyspnea 1/3 Anxiety 2/3 Fatigue 2/3 Nausea 0/3 Anorexia 1/3 Drowsiness 0/3 Palliative Performance Score 40% Physical Exam Constitutional: + ill appearing; no acute distress ENMT: Mouth: + dry oral mucous membranes Respiratory: normal respiratory effort and + uses accessory muscles; no labored breathing Cardiovascular: Rate/Rhythm: + irregularly irregular Gastrointestinal (Abdomen): Inspection/Auscultation: abdomen not distended Musculoskeletal: Extremities: extremities normal to inspection and + muscle atrophy Neurologic: awake; not confused Results & Data ([facility]) Vital Signs (Past 12 Hours) Vital Signs Temp Pulse Pulse Resp BP Pulse Ox 04/09/21 11:29 37.9 C H 67 20 175/78 H 97 04/09/21 08:00 63 04/09/21 07:42 37.2 C 63 19 174/87 H 96 04/09/21 02:47 36.6 C 64 20 158/86 H 90 PG Care Time/CCT Total # of Minutes Spent Total Time Spent with Patient: Total time spent is greater than 50% in coordination of care (as documented) at patient's floor/unit and/or counseling patient: 45 minutes with > 50% of that time spent assessing the patient, discussing goals of care and collaborating with IDT Coding Level of Care Code 93505 Subseq Hosp Care Lvl 3 Diagnoses Palliative care encounter Z51.5 Stroke I63.9 CHF (congestive heart failure) I50.9 Atrial fibrillation I48.91 Prosthetic aortic valve stenosis T82.857A Time Spent (min) 45
[2021-04-09] MEDS: MEROPENEM 2,000 MG in 0.9 % SODIUM CHLORIDE 58 ML IV SCH (17:17)
[2021-04-09] MEDS: TAMSULOSIN HCL 0.4 MG CAP PO SCH (20:33)
[2021-04-09] MEDS: FINASTERIDE 5 MG TAB PO SCH (20:33)
[2021-04-09] MEDS: ESCITALOPRAM OXALATE 20 MG TAB PO SCH (20:33)
[2021-04-10] MEDS: MEROPENEM 2,000 MG in 0.9 % SODIUM CHLORIDE 58 ML IV SCH ×3 (01:49→17:06)
[2021-04-10 07:14] LABS: Hematocrit (blood only) 26.4 % (42-52); Hemoglobin 8.7 g/dL (14.0-18.0); Mean Corpuscular Hemoglobin 33.1 pg (25-34); Mean Corpuscular Volume 100.4 fL (80-100); Mean Platelet Volume 9.7 fL (7.4-10.4); Platelet Count 186 K/uL (130-400); RDW Coefficient of Variation 13.7 % (11.5-14.5); RDW Standard Deviation 49.6 fL (36.4-46.3); Red Blood Count 2.63 M/uL (4.7-6.1); White Blood Count 11.44 K/uL (4.8-10.8)
[2021-04-10 07:42] LABS: BUN Creatinine Ratio 18.6 (10-20); Calcium 8.7 mg/dl (8.5-10.1); Creatinine Clr Calc Pharmacy 67.2 ml/min; Est GFR (African American) 84.5 ml/min; Est GFR (Non-African American) 72.9 ml/min; Potassium 3.3 mmol/L (3.5-5.1)
[2021-04-10] MEDS: ASPIRIN 81 MG ECTAB PO SCH (08:38)
[2021-04-10] MEDS: PANTOprazole 40 MG TAB PO SCH ×2 (08:38→20:28)
--- NOTE | 2021-04-10 11:45 | Palliative Care Progress Note ---
Date of Service April 10, 2021 Assessment & Plan (1) Palliative care encounter: He is feeling depressed about not being able to go home and needing prolonged course of IV antibiotics. While he verbalizes understanding that his prognosis is poor, he and his are in agreement that they do want to proceed with antibiotic course which would make him ineligible for hospice care at home. Discussed with case management who will talk with his about whether she may be comfortable with giving him antibiotics at home with home care nursing support. If not, plan would be SNF for now. (2) Stroke: with hemorrhage (3) Sepsis: (4) Atrial fibrillation: (5) Weakness: (6) Cirrhosis: (7) Fatigue: Admission and Anticipated Discharge Date Admission Date: March 31, 2021 Subjective Sitting in chair at bedside but dozes off easily. He complains of feeling tired during the day but not sleeping well. Denies pain or dyspnea. Feels very weak. Review of Systems Review of Systems: [place] Symptom Assessment Scale Pain 0/3 Dyspnea 0/3 Fatigue 2/3 Nausea 0/3 Anorexia 2/3 Drowsiness 1/3 Palliative Performance Score 40% Physical Exam Constitutional: + ill appearing; no acute distress Eyes: minimal ability to distinguish light from dark, able to detect motion ENMT: Mouth: oral mucous membranes not dry Respiratory: normal respiratory effort; no labored breathing Cardiovascular: Rate/Rhythm: + irregularly irregular Gastrointestinal (Abdomen): Inspection/Auscultation: abdomen not distended Musculoskeletal: Extremities: + muscle atrophy generalized weakness Left arm weakness Neurologic: not confused Psychiatric: Affect: + depressed affect Results & Data ([facility]) Vital Signs (Past 12 Hours) Vital Signs Temp Pulse Resp BP Pulse Ox 04/10/21 07:36 97.5 F L 71 20 163/86 H 96 04/09/21 23:36 97.9 F 67 18 146/87 H 96 PG Care Time/CCT Total # of Minutes Spent Total Time Spent with Patient: Total time spent is greater than 50% in coordination of care (as documented) at patient's floor/unit and/or counseling patient: Coding Level of Care Code 93270 Subseq Hosp Care Lvl 2 Diagnoses Palliative care encounter Z51.5 Stroke I63.9 Sepsis A41.9 Sepsis acute organ dysfunction status: unspecified Sepsis type: sepsis due to unspecified organism Atrial fibrillation I48.91 Weakness R53.1 Cirrhosis K74.60 Fatigue R53.83 Fatigue type: unspecified (1) Sepsis Sepsis acute organ dysfunction status: unspecified Sepsis type: sepsis due to unspecified organism Qualified Code(s): A41.9 - Sepsis, unspecified organism (2) Fatigue Fatigue type: unspecified Qualified Code(s): R53.83 - Other fatigue
--- NOTE | 2021-04-10 12:48 | Cardiology Progress Note ---
Date of Service April 10, 2021 Assessment & Plan (1) Stroke: Recurrent large cerebrovascular accident 04/06/2021. Due to high risk of hemorrhagic conversion, anticoagulation has not been initiated. Patient carries a history of prior intracranial bleeding and possible amyloid angiopathy. Neur ology input appreciated. Repeat CT scheduled in 4 days. If there is no evidence of hemorrhagic conversion, patient will be prescribed anticoagulation with warfarin. Continue low-dose aspirin. (2) Sepsis: Pseudomonas bacteremia likely secondary to prostate abscess seen on CT. Zosyn discontinued in favor of meropenem. ID recommendations appreciated. U rology consultation pending. Pseudomonas aeruginosa and Enterococcus faecalis urosepsis per culture 03/31/2021. 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 Patient remains at risk for recurrent endocarditis. He is not a candidate for valvular intervention. Repeat transthoracic echocardiogram performed 04/07 without evidence of large vegetation or valvular insufficiency. I do not believe a repeat transesophageal echocardiogram would price changer at this time. 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 Patient is not a candidate for valvular intervention. Possible recurrent endocarditis despite normal transthoracic echocardiogram. Medical management recommended. Prognosis is poor. (4) Atrial fibrillation: Chronic rate controlled atrial fibrillation. Anticoagulation discontinued secondary to intracranial bleed. Anticoagulation remains on hold currently despite recurrent CVA due to risk of hemorrhagic conversion. Current plan for repeat CT in 4 days with consideration for restarting anticoagulation if there is no evidence of hemorrhagic conversion. Neurology input appreciated. Admission and Anticipated Discharge Date Admission Date: March 31, 2021 Subjective Patient seen and examined at the bedside. CT revealing prostate abscess as likely source of Pseudomonas bacteremia. Antibiotics adjusted. Telemetry reveals rate controlled A. fib. Patient denies chest pain or shortness of breath. Vision unchanged. No orthopnea or PND. Review of Systems Review of Systems: All systems reviewed & are unremarkable except as noted in Subjective Physical Exam Constitutional: well nourished; no acute distress Respiratory: no respiratory distress and no labored breathing Auscultation: + crackles (Left base); no rales, no rhonchi and no wheezes Cardiovascular: Rate/Rhythm: + irregularly irregular Heart Sounds: normal S1, normal S2 and + murmur (2/6 systolic murmur heard best at the base.) Gastrointestinal (Abdomen): Inspection/Auscultation: abdomen normal to inspection; abdomen not distended and + abnormal bowel sounds Percussion/Palpation: abdomen soft; abdomen nontender, no guarding and abdomen not rigid Results & Data ([facility]) Vital Signs (Past 12 Hours) Vital Signs Temp Pulse Resp BP Pulse Ox 04/10/21 11:38 37.3 C 52 L 18 136/82 99 04/10/21 07:36 36.4 C L 71 20 163/86 H 96 (1) Sepsis Sepsis acute organ dysfunction status: unspecified Sepsis type: sepsis due to unspecified organism Qualified Code(s): A41.9 - Sepsis, unspecified organism
--- NOTE | 2021-04-10 14:14 | Hospitalist Progress Note ---
Date of Service April 10, 2021 Assessment & Plan (1) Hypotension: -Septic shock -Complicated UTI 80-year-old man with history significant for aortic valvular replacement and mitral valvular repair with annuloplasty in 2009, recent hospitalization here at [facility] in 12/2020 and subsequent transfer to [facility] for endocarditis recent left occipital intraparenchymal hematoma in 01/2021 and was discharged off anticoagulation despite history of chronic A. fib to rehab, who presented with fevers, chills, hematuria after outpatient Ch catheter replacement. Managed for septic shock. Required initial management in ICU with pressors which have been weaned off. Blood cultures 03/31/2021: Pseudomonas aeruginosa Urine culture 03/31/21: Pseudomonas and Enterococcus Blood cultures 04/02/21: Negative -Ch catheter changed on 03/31/21 in ED -ECHO: unchanged from 01/18/21 -Weaned off of pressors Was on zosyn with persistent fevers and leukocytosis Repeat blood cultures on 04/06/21 and 04/07/21 growing pseudomonas Repeat Urine culture 04/06/21 negative so far Patient comorbidities, history of bioprosthetic valve for mitral valvular repair; infective endocarditis cannot be ruled out. TTE did not show any vegetations. Per cardiology, patient is not a candidate for valvular intervention. Based on sensitivities of blood culture of 04/06/21, pseudomonas appear to now be resistant to cefepime and intermediate to zosyn. This may explain persistent bacteremia. Antibiotics was changed to IV Meropenem yesterday. Panscan with CT chest/abd/pelvis w/co to look for other nidus/sources/abscess showed 2 small prostatic abscesses Discussed with infectious disease Dr Warren Follow up repeat blood cultures from today. 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 This may reflect an infarct with subacute hemorrhage. Patient had right hemianopsia before but developed total blindness on 04/06/21 New infarcts seen on CT head likely embolic with his cardiac comorbidities (valvulopathies and Afib) Previous hemorrhage stable Case discussed with Clinical Program Coordinator/Neurologist. Due to size of infarct, neurologist does not recommend anticoagulation at this time. Started on aspirin 81mg No anticoagulation for now due to high risk of hemorrhagic transformation Will need repeat Head CT 04/13/21 prior to assessing for resumption of anticoagulation Poor prognosis -Acute renal failure Likely ischemic ATN secondary to septic shock Resolved Cr: 3.8>3.15>2.43>1.77>1.28>1.29>1.33>1.29>1.17>0.97 Avoid nephrotoxic agents as able Monitor renal function Renal function continues to improve Hypokalemic today. K 3.3 Replete and monitor -Lactic acidosis -Hypokalemia Resolved -Mild troponin elevation Secondary to sepsis Denied any anginal symptoms -Chronic systolic heart failure -H/O Bioprosthetic AVR/mitral valve repair -H/O prosthetic valve stenosis -Recent Streptococcus Endocarditis Clinical Program Coordinator recommendations appreciated -Atrial fibrillation Recently discontinued anticoagulation secondary to intracranial hemorrhage Rate controlled Anticoagulation plans as detailed above -Esophageal varices -Esophagitis Continue pantoprazole -BPH Continue finasteride -H/O PVD Past tobacco use Aspirin on hold DVT Px: SCD Code Status DNR/DNI Palliative care on board aiding with goals of care. Called today and updated her She still plans for patient to ultimately come home when stable but stated she may want him to go to rehab before that She will like him to continue antibiotic therapy for now Admission and Anticipated Discharge Date Admission Date: March 31, 2021 Subjective Patient seen and examined. No new complaints Persistent cortical blindness and Left upper extremity weakness Reports weakness Has chronic ch No fever in past 24h Review of Systems Review of Systems: All systems reviewed & are unremarkable except as noted in Subjective Physical Exam Constitutional: + well hydrated; no acute distress Eyes: PERRL, conjunctivae normal, anicteric sclerae ENMT: external ear and nose normal, oropharynx normal Respiratory: normal respiratory effort, lungs clear to auscultation Cardiovascular: Rate/Rhythm: + irregularly irregular Heart Sounds: + murmur S1 S2 Gastrointestinal (Abdomen): normal bowel sounds, soft, nontender, no hepatosplenomegaly Neurologic: PERRL, EOMI, accommodation nl, no face palsy, no dysarthria Psychiatric: +Blindness No slurred speech/facial deviation noted Alert and oriented to person place and time. Has good insight Power is 4/5 in left upper extremity and 5/5 in RUE Genitourinary: Ch in situ Results & Data Results & Data ([facility]) Vital Signs (Past 12 Hours) Vital Signs Temp Pulse Resp BP Pulse Ox 04/10/21 11:38 37.3 C 52 L 18 136/82 99 04/10/21 07:36 36.4 C L 71 20 163/86 H 96 Laboratory Results Abnormal lab results 04/10/21 04/10/21 Range/Units 06:50 06:50 WBC 11.44 H (4.8-10.8) K/uL RBC 2.63 L (4.7-6.1) M/uL Hgb 8.7 L (14.0-18.0) g/dL Hct 26.4 L (42-52) % MCV 100.4 H (80-100) fL RDW Std Deviation 49.6 H (36.4-46.3) fL Sodium 135 L (136-145) mmol/L Potassium 3.3 L (3.5-5.1) mmol/L
[2021-04-10] MEDS ORDERED: POTASSIUM CHLORIDE 20 MEQ/15 ML UDC PO STA (15:03)
[2021-04-10] MEDS: ESCITALOPRAM OXALATE 20 MG TAB PO SCH (20:28)
[2021-04-10] MEDS: FINASTERIDE 5 MG TAB PO SCH (20:28)
[2021-04-10] MEDS: ACETAMINOPHEN 325 MG TAB PO SCH (20:29)
[2021-04-10] MEDS: TAMSULOSIN HCL 0.4 MG CAP PO SCH (20:30)
--- NOTE | 2021-04-10 21:09 | Urology Consultation ---
Date of Consultation April 10, 2021 Assessment & Plan (1) Prostate abscess: Prostate abscess (x2) - typically, management would include strong consideration of TUR/drainage of the abscess, unfortunately, I do not believe these options can safely be considering given his severe comorbidities - uncertain how willing the patient and family would be to pursue invasive procedures regardless - for now, continued antibiotic treatment is most appropriate, particularly if his clinical condition remains stable - I would anticipate fevers may recur for 1-2 weeks - will likely require and extended course of IV abx to fully penetrate these abscesses - if he decompensates/shows signs of worsening infection and the patient and his family opt for invasive procedures, I recommend transfer to a tertiary center for TUR drainage or possible perineal drain placement by IR History of Present Illness Attending Physician: Radha Villar MD History of Present Illness 80y/o extremely comorbid male with recent imaging suggestive of a prostate abscess - evaluation, physical, and discussion conducted with both the patient and his - recent hx of endocarditis, but admitted to the hospital with urinary issues - freq/dysuria/hematuria and fevers - septic on arrival - ICU stay with appropriate resuscitation - CT at time of admission showing an edematous prostate, but no clear abscess, no hydro, etc - repeat CT now appears to show maturation of his prostatitis into a likely prostate abscess (or possibly two) - clinically he has improved slightly, now out of the ICU, but still experiencing cyclical fevers and other symptoms - ch catheter in place - receiving Meropenem for coverage - prior to admission was scheduled for f/u with [facility] urology to continue w/u of hematuria and voiding dysfunction - had been started on finasteride and tamsulosin shortly prior to admission Allergies Allergy/AdvReac Type Severity Reaction Status Date / Time No Known Allergies Allergy Unknown Verified 03/30/21 23:14 Home Medications Medication Instructions Recorded Confirmed Type amlodipine 10 mg PO HS 01/17/21 03/30/21 History bupropion HCl 150 mg PO QPM 01/17/21 03/30/21 History escitalopram oxalate 20 mg PO HS 01/17/21 03/30/21 History furosemide 40 mg PO DAILY PRN 01/17/21 03/30/21 History losartan 100 mg PO HS 01/17/21 03/30/21 History tamsulosin 0.4 mg PO HS 01/17/21 03/30/21 History triamterene-hydrochlorothiazid 1 cap PO HS 01/17/21 03/30/21 History acetaminophen [Tylenol Extra 1,000 mg PO Q8H PRN 03/30/21 03/30/21 History Strength] amoxicillin 2,000 mg PO DIRECTED PRN 03/30/21 03/30/21 History aspirin 81 mg PO HS 03/30/21 03/30/21 History cholecalciferol (vitamin D3) 125 mcg PO HS 03/30/21 03/30/21 History [Vitamin D3] finasteride 5 mg PO HS 03/30/21 03/30/21 History sulfamethoxazole-trimethoprim 1 tab PO BID 03/30/21 03/30/21 History Patient History Medical History Acute respiratory failure with hypoxia [place] (acute kidney injury) Anxiety Atrial fibrillation "on Coumadin" CHF (congestive heart failure) Cirrhosis Depression Dyslipidemia HTN (hypertension) Hyponatremia Prosthetic aortic valve stenosis Pulmonary edema Streptococcal bacteremia Supratherapeutic INR Weakness Surgical History History of aortic valve replacement "2009" History of inguinal hernia repair History of mitral valve replacement "2009" S/P AVR S/P MVR (mitral valve repair) Status post repair of hydrocele Social History Smoking Status: Former smoker Tobacco Type: Cigarettes Do You Dip or Chew Tobacco: No; Hx Alcohol Use: No Hx Substance Use: No Preferred Language: Chinese Communication Ability: Effective [place] Agent Required: No Beliefs That Will Affect Care: None Current Living Situation: Spouse Other Information That Helps Us Care for You: No Feels Safe at Home: Yes Safety Concerns: Feels Safe At This Time Assistive Devices: Oxygen - Continuous and Walker Review of Systems Eyes: severe vision limitations Ear, Nose, Mouth, Throat: no hearing loss Respiratory: no cough and no dyspnea Cardiovascular: no chest pain Gastrointestinal: no abdominal pain Genitourinary: + problem reported Musculoskeletal: no back pain Integumentary: no rash Neurologic: recent CVA Physical Exam Constitutional: well developed and well nourished resting comfortable interactive, but reserved Respiratory: no respiratory distress Cardiovascular: Extremities: no pedal edema Chest (Breasts): Chest: normal inspection of chest Gastrointestinal (Abdomen): Inspection/Auscultation: abdomen normal to inspection; abdomen not distended Percussion/Palpation: abdomen nontender, no guarding and abdomen not rigid Results & Data ([facility]) Vital Signs (Past 12 Hours) Vital Signs Temp Pulse Pulse Resp BP Pulse Ox 04/10/21 19:54 36.6 C 57 L 15 132/75 98 04/10/21 16:02 37.2 C 55 L 20 160/88 H 98 04/10/21 16:00 63 04/10/21 11:38 37.3 C 52 L 18 136/82 99 PG Care Time/CCT Total # of Minutes Spent Total Time Spent with Patient: Total time spent is greater than 50% in coordination of care (as documented) at patient's floor/unit and/or counseling patient: Coding Level of Care Code 14419 Inpt Consult Level 5 Diagnoses Prostate abscess N41.2
[2021-04-11] MEDS: MEROPENEM 2,000 MG in 0.9 % SODIUM CHLORIDE 58 ML IV SCH ×3 (02:04→17:51)
[2021-04-11 06:58] LABS: Hematocrit (blood only) 26.3 % (42-52); Hemoglobin 8.6 g/dL (14.0-18.0); Mean Corpuscular Hemoglobin 32.5 pg (25-34); Mean Corpuscular Hgb Conc 32.7 g/dL (32-36); Mean Corpuscular Volume 99.2 fL (80-100); Mean Platelet Volume 9.4 fL (7.4-10.4); Platelet Count 191 K/uL (130-400); RDW Coefficient of Variation 13.8 % (11.5-14.5); RDW Standard Deviation 49.3 fL (36.4-46.3); Red Blood Count 2.65 M/uL (4.7-6.1); White Blood Count 8.33 K/uL (4.8-10.8)
[2021-04-11 07:44] LABS: BUN Creatinine Ratio 21.3 (10-20); Calcium 8.6 mg/dl (8.5-10.1); Creatinine Clr Calc Pharmacy 65.9 ml/min; Est GFR (African American) 81.4 ml/min; Est GFR (Non-African American) 70.3 ml/min; Potassium 3.8 mmol/L (3.5-5.1)
--- NOTE | 2021-04-11 08:01 | Urology Progress Note ---
Date of Service April 11, 2021 Assessment & Plan (1) Prostate abscess: 80 year-old male patient, with multiple comorbidities, admitted with sepsis secondary to complicated UTI, found to have prostate abscesses x2. -Plan of care reviewed with Dr. Plummer. -Patient has been afebrile for the past 24 hours. -Labs reviewed - white count improved to normal, creatinine stable. -Repeat preliminary blood cultures with probable Pseudomonas species. -Continue with antibiotic therapy and supportive care. -For prostate abscess, typically management would include strong consideration of TUR/drainage of the abscess. -Surgical intervention however complicated by patient's severe comorbidities. -Uncertain if the patient and his family would be willing to pursue invasive procedures. -For now, continued antibiotic treatment is appropriate, particularly if his clinical condition remains stable. -Will likely require and extended course of IV antibiotics to fully penetrate these abscesses. -If he decompensates/shows signs of worsening infection and the patient and his family opt for invasive procedures, recommend transfer to a tertiary center for TUR drainage or possible perineal drain placement by IR. -Will continue to follow while inpatient. Admission and Anticipated Discharge Date Admission Date: March 31, 2021 Subjective Patient examined at bedside, he is alert and awake. Flat effect. Currently denies pain. Denies nausea or vomiting. Denies fevers or chills. Reports he has been though "a lot" over the past several months. He is tolerating ch catheter without difficulty. Urine draining concentrated yellow urine. Denies hematuria. Denies bladder pain or pressure. He remains on dual therapy for BPH. Chart review: Afebrile over the past 24 hours. Wbc 8.33 (previously 11.44) Hgb 8.6 Creatinine 1.00 Urine culture 04/07 no growth. Repeat preliminary blood cultures 04/09 probable Pseudomonas species. Blood cultures from 04/10 pending. Patient currently on IV Meropenem. ID consulted to assist in management. Denies additional urologic concerns today. Review of Systems Constitutional: as per Subjective / HPI; no fever and no chills Gastrointestinal: as per Subjective / HPI; no nausea and no vomiting Genitourinary: + as per Subjective / HPI Physical Exam Constitutional: well nourished, cooperative and comfortable; no acute distress Chronically ill appearing Respiratory: normal respiratory effort and able to speak in complete sentences; no respiratory distress and no audible wheezes Gastrointestinal (Abdomen): Inspection/Auscultation: abdomen normal to inspection; abdomen not distended Percussion/Palpation: abdomen soft; abdomen nontender and no guarding Skin: No visible rashes, lesions, or wounds. Psychiatric: Orientation: alert, oriented x 3 and cooperative Affect: + flat affect Genitourinary: no CVA tenderness Ch catheter intact draining c oncentrated yellow urine. Results & Data ([facility]) Vital Signs (Past 12 Hours) Vital Signs Temp Pulse Pulse Resp BP Pulse Ox 04/11/21 07:29 60 04/11/21 04:10 36.3 C L 54 L 18 169/81 H 99 04/10/21 23:41 36.6 C 59 L 18 167/83 H 98 PG Care Time/CCT Total # of Minutes Spent Total Time Spent with Patient: Total time spent is greater than 50% in coordination of care (as documented) at patient's floor/unit and/or counseling patient: Coding Level of Care Code 60405 Subseq Hosp Care Lvl 2 Diagnoses Prostate abscess N41.2
[2021-04-11] MEDS: ASPIRIN 81 MG ECTAB PO SCH (08:39)
[2021-04-11] MEDS: PANTOprazole 40 MG TAB PO SCH ×2 (08:40→19:48)
[2021-04-11] MEDS: buPROPion XL 150 MG TABCR PO SCH (13:38)
--- NOTE | 2021-04-11 13:54 | Cardiology Progress Note ---
Date of Service April 11, 2021 Assessment & Plan (1) Stroke: Recurrent large cerebrovascular accident 04/06/2021. Due to high risk of hemorrhagic conversion, anticoagulation has not been initiated. Patient carries a history of prior intracranial bleeding and possible amyloid angiopathy. Neur ology input appreciated. Repeat CT scheduled 04/14/21. If there is no evidence of hemorrhagic conversion, patient will be prescribed anticoagulation with warfarin. Continue low-dose aspirin. (2) Sepsis: Pseudomonas bacteremia likely secondary to prostate abscess on CT. Zosyn discontinued in favor of meropenem. ID recommendations appreciated. Urology consultation appreciated. Pseudomonas aeruginosa and Enterococcus faecalis urosepsis per culture 03/31/2021. 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 Patient remains at risk for recurrent endocarditis. He is not a candidate for valvular intervention. Repeat transthoracic echocardiogram performed 04/07 without evidence of large vegetation or valvular insufficiency. I do not believe a repeat transesophageal echocardiogram would exchange teller at this time. 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 Patient is not a candidate for valvular intervention. Medical management recommended. Prognosis is poor. (4) Atrial fibrillation: Chronic rate controlled atrial fibrillation. Anticoagulation discontinued secondary to intracranial bleed. Anticoagulation remains on hold currently despite recurrent CVA due to risk of hemorrhagic conversion. Current plan for repeat CT in 04/14 with consideration for restarting anticoagulation if there is no evidence of hemorrhagic conversion. Neurology input appreciated. Admission and Anticipated Discharge Date Admission Date: March 31, 2021 Subjective Patient seen and examined at the bedside. No changes overnight. Telemetry reveals atrial fibrillation with heart rate ranging from 50-65 bpm. No evidence of rapid ventricular response. Patient's vision is unchanged. Denies chest pain or shortness of breath. No edema, orthopnea, or PND. No fevers recorded. Blood cultures drawn 04/10/2021 demonstrate no growth after 24 hours. Review of Systems Review of Systems: All systems reviewed & are unremarkable except as noted in Subjective Physical Exam Constitutional: well nourished; no acute distress Respiratory: no respiratory distress and no labored breathing Auscultation: + crackles (Left base); no rales, no rhonchi and no wheezes Cardiovascular: Rate/Rhythm: + irregularly irregular Heart Sounds: normal S1, normal S2 and + murmur (2/6 systolic murmur heard best at the base.) Gastrointestinal (Abdomen): Inspection/Auscultation: abdomen normal to inspection; abdomen not distended and + abnormal bowel sounds Percussion/Palpation: abdomen soft; abdomen nontender, no guarding and abdomen not rigid Results & Data ([facility]) Vital Signs (Past 12 Hours) Vital Signs Temp Pulse Pulse Resp BP Pulse Ox 04/11/21 11:42 36.8 C 68 18 134/75 97 04/11/21 07:42 36.6 C 68 18 150/81 H 95 04/11/21 07:29 60 04/11/21 04:10 36.3 C L 54 L 18 169/81 H 99 (1) Sepsis Sepsis acute organ dysfunction status: unspecified Sepsis type: sepsis due to unspecified organism Qualified Code(s): A41.9 - Sepsis, unspecified organism
--- NOTE | 2021-04-11 17:39 | Hospitalist Progress Note ---
Date of Service April 11, 2021 Assessment & Plan (1) Hypotension: per admitting service notes: -Septic shock -Bacteremia -Complicated UTI 80-year-old man with history significant for aortic valvular replacement and mitral valvular repair with annuloplasty in 2009, recent hospitalization here at [facility] in 12/2020 and subsequent transfer to [place] for endocarditis recent left occipital intraparenchymal hematoma in 01/2021 and was discharged off anticoagulation despite history of chronic A. fib to rehab, who presented with fevers, chills, hematuria after outpatient Linares catheter replacement. Managed for septic shock. Required initial management in ICU with pressors whi ch have been weaned off. Blood cultures 03/31/2021: Pseudomonas aeruginosa Urine culture 03/31/21: Pseudomonas and Enterococcus Blood cultures 04/02/21: Negative -Linares catheter changed on 03/31/21 in ED -ECHO: unchanged from 01/18/21 -Weaned off of pressors Was on zosyn with persistent fevers and leukocytosis Repeat blood cultures on 04/06/21 and 04/07/21 growing pseudomonas Repeat Urine culture 04/06/21 negative so far Patient comorbidities, history of bioprosthetic valve for mitral valvular repair; infective endocarditis cannot be ruled out. TTE did not show any vegetations. Per cardiology, patient is not a candidate for valvular intervention. Based on sensitivities of blood culture of 04/06/21, pseudomonas appear to now be resistant to cefepime and intermediate to zosyn. This may explain persistent bacteremia. Antibiotics was changed to IV Meropenem yesterday. Panscan with CT chest/abd/pelvis w/co to look for other nidus/sources/abscess showed 2 small prostatic abscesses Discussed with infectious disease Dr Warren Follow up repeat blood cultures from today. 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 This may reflect an infarct with subacute hemorrhage. Patient had right hemianopsia before but developed total blindness on 04/06/21 New infarcts seen on CT head likely embolic with his cardiac comorbidities (valvulopathies and Afib) Previous hemorrhage stable Case discussed with [place] Counselor/Neurologist. Due to size of infarct, neurologist does not recommend anticoagulation at this time. Started on aspirin 81mg - tolerating ASA so far continue to monitor No anticoagulation for now due to high risk of hemorrhagic transformation Will need repeat Head CT 04/13/21 prior to assessing for resumption of anticoagulation Poor prognosis -Acute renal failure Likely ischemic ATN secondary to septic shock Resolved Cr: 3.8>3.15>2.43>1.77>1.28>1.29>1.33>1.29>1.17>0.97 Avoid nephrotoxic agents as able Monitor renal function Renal function improved -Lactic acidosis -Hypokalemia Resolved -Mild troponin elevation Secondary to sepsis Denied any anginal symptoms -Chronic systolic heart failure -H/O Bioprosthetic AVR/mitral valve repair -H/O prosthetic valve stenosis -Recent Streptococcus Endocarditis [place] Counselor recommendations appreciated -Atrial fibrillation Recently discontinued anticoagulation secondary to intracranial hemorrhage Rate controlled Anticoagulation plans as detailed above -Esophageal varices -Esophagitis Continue pantoprazole -BPH Continue finasteride -H/O PVD Past tobacco use Aspirin on hold DVT Px: SCD Code Status DNR/DNI Palliative care on board aiding with goals of care. per Dr. Villar's notes: prefers for patient to ultimately come home when stable but stated she may want him to go to rehab before that She will like him to continue antibiotic therapy for now Admission and Anticipated Discharge Date Admission Date: March 31, 2021 Subjective ff up for bacteremia, UTI, acute CVA etc seen resting in bed, comfortable using 2 L NC, baseline states he feels ok overall denies fever/chills, nausea/vomiting, pain, dyspnea no headache, new focal deficits appetite is good no other symptoms Review of Systems Review of Systems: All systems reviewed & are unremarkable except as noted in Subjective Physical Exam Physical Exam: General- oriented x 2, not in distress, speaks in sentences with no effort or accessory muscle use Eyes- anicteric Neck- no JVD Lungs- clear breath sounds bilaterally, no rales/wheezes Heart- normal rate, regular rhythm; no murmurs Abdomen- normal bowel sounds, nondistended, soft, nontender Extremities- no pretibial edema, no calf tenderness Neuro- alert, oriented x 2; no gross focal neurologic deficits Skin- warm & dry Results & Data Results & Data ([facility]) Vital Signs (Past 12 Hours) Vital Signs Temp Pulse Pulse Resp BP Pulse Ox 04/11/21 16:20 36.9 C 66 20 132/68 94 04/11/21 11:42 36.8 C 68 18 134/75 97 04/11/21 07:42 36.6 C 68 18 150/81 H 95 04/11/21 07:29 60
[2021-04-11] MEDS: ACETAMINOPHEN 325 MG TAB PO SCH (19:46)
[2021-04-11] MEDS: ESCITALOPRAM OXALATE 20 MG TAB PO SCH (19:48)
[2021-04-11] MEDS: TAMSULOSIN HCL 0.4 MG CAP PO SCH (19:48)
[2021-04-11] MEDS: FINASTERIDE 5 MG TAB PO SCH (19:48)
[2021-04-12] MEDS: MEROPENEM 2,000 MG in 0.9 % SODIUM CHLORIDE 58 ML IV SCH ×3 (01:40→17:42)
[2021-04-12] MEDS: PANTOprazole 40 MG TAB PO SCH ×2 (07:54→20:24)
[2021-04-12] MEDS: ASPIRIN 81 MG ECTAB PO SCH (07:54)
[2021-04-12 08:26] LABS: Basophils # (auto) 0.02 K/uL (0-0.2); Basophils % (auto) 0.3 %; Eosinophils # (auto) 0.15 K/uL (0-0.5); Hematocrit (blood only) 27.8 % (42-52); Hemoglobin 9.2 g/dL (14.0-18.0); Immature Granulocytes # (auto) 0.02 K/uL (0.00-0.02); Immature Granulocytes % (auto) 0.3 %; Lymphocytes # (auto) 1.19 K/uL (1.2-3.4); Lymphocytes % (auto) 16.1 %; Mean Corpuscular Hemoglobin 32.7 pg (25-34); Mean Corpuscular Hgb Conc 33.1 g/dL (32-36); Mean Corpuscular Volume 98.9 fL (80-100); Monocytes % (auto) 6.8 %; Neutrophils # (auto) 5.52 K/uL (1.4-6.5); Neutrophils % (auto) 74.5 %; Platelet Count 211 K/uL (130-400); RDW Coefficient of Variation 13.6 % (11.5-14.5); RDW Standard Deviation 49.4 fL (36.4-46.3); Red Blood Count 2.81 M/uL (4.7-6.1)
--- NOTE | 2021-04-12 08:35 | Urology Progress Note ---
Date of Service April 12, 2021 Assessment & Plan (1) Prostate abscess: 80 year-old male patient, with multiple comorbidities, admitted with sepsis secondary to complicated UTI, found to have prostate abscesses x2. -Patient remains afebrile, appears to be clinically stable. -Labs reviewed - white count normal, creatinine stable. -Repeat preliminary blood cultures 04/09 with probable Pseudomonas species. -Blood cultures 04/10 no growth after 24 hours. -Continue with antibiotic therapy and supportive care, ID on board for management of care. -For prostate abscess, typically management would include strong consideration of TUR/drainage of the abscess. -Surgical intervention however complicated by patient's severe comorbidities. -Uncertain if the patient and his family would be willing to pursue invasive procedures. -For now, given his clinical stability, continued antibiotic treatment is appropriate, particularly if his clinical condition remains stable. -Will likely require and extended course of IV antibiotics to fully penetrate these abscesses, duration per ID. -If he decompensates/shows signs of worsening infection and the patient and his family opt for invasive procedures, recommend transfer to a tertiary center for TUR drainage or possible perineal drain placement by IR. -Will need close follow-up as outpatient for continued monitoring. Does follow with [facility] urology, however if he prefers to transfer, can arrange follow-up with our service. -Expected clinical course reviewed with patient, all questions answered. Thank you for allowing us to participate in the acute care of . Please reconsult us with additional questions, concerns or changes in patient status. Admission and Anticipated Discharge Date Admission Date: March 31, 2021 Subjective Patient examined at bedside, he is alert and awake. Currently denies pain. Denies nausea or vomiting. Denies fevers or chills. He is tolerating ch catheter without difficulty. Urine draining concentrated yellow urine. Denies hematuria. Denies bladder pain or pressure. He remains on dual therapy for BPH. Chart review: He remains afebrile. Wbc 7.40 Hgb 9.2 Creatinine 0.93 (previously 1.00) Urine culture 04/07 no growth. Repeat preliminary blood cultures 04/09 probable Pseudomonas species. Blood cultures from 04/10 no growth after 24 hours. Patient currently on IV Meropenem. ID consulted to assist in management. Denies additional urologic concerns today. Review of Systems Constitutional: as per Subjective / HPI; no fever and no chills Eyes: vision limitations Gastrointestinal: as per Subjective / HPI; no nausea and no vomiting Genitourinary: + as per Subjective / HPI Neurologic: recent CVA Physical Exam Constitutional: well nourished, cooperative and comfortable; no acute distress Respiratory: normal respiratory effort and able to speak in complete sentences; no respiratory distress and no audible wheezes Gastrointestinal (Abdomen): Inspection/Auscultation: abdomen normal to inspection; abdomen not distended Percussion/Palpation: abdomen soft; abdomen nontender and no guarding Psychiatric: Orientation: alert, oriented x 3 and cooperative Affect: + flat affect Genitourinary: no CVA tenderness Ch catheter intact and patent. Ch draining concentrated yellow urine. Results & Data ([facility]) Vital Signs (Past 12 Hours) Vital Signs Temp Pulse Pulse Pulse Resp BP Pulse Ox 04/12/21 07:30 36.4 C L 63 20 172/76 H 97 04/12/21 04:09 36.6 C 62 18 172/83 H 98 04/11/21 23:37 36.6 C 57 L 57 L 20 140/84 97 PG Care Time/CCT Total # of Minutes Spent Total Time Spent with Patient: Total time spent is greater than 50% in coordination of care (as documented) at patient's floor/unit and/or counseling patient: Coding Level of Care Code 54444 Subseq Hosp Care Lvl 2 Diagnoses Prostate abscess N41.2
[2021-04-12 08:57] LABS: Albumin Level 2.4 gm/dl (3.4-5.0); BUN Creatinine Ratio 20.6 (10-20); Bilirubin Direct 0.4 mg/dl (0-0.2); Calcium 8.6 mg/dl (8.5-10.1); Creatinine Clr Calc Pharmacy 70.7 ml/min; Est GFR (African American) 88.9 ml/min; Est GFR (Non-African American) 76.7 ml/min; Potassium 3.8 mmol/L (3.5-5.1)
[2021-04-12 09:00] LABS: Total Protein 6.4 gm/dl (6.4-8.2)
--- NOTE | 2021-04-12 17:25 | Hospitalist Progress Note ---
Date of Service April 12, 2021 Assessment & Plan (1) Hypotension: per admitting service notes: -Septic shock -Bacteremia -Complicated UTI 80-year-old man with history significant for aortic valvular replacement and mitral valvular repair with annuloplasty in 2009, recent hospitalization here at [facility] in 12/2020 and subsequent [place] [facility] [place] recent left occipital intraparenchymal hematoma in 01/2021 and was discharged off anticoagulation despite history of chronic A. fib to rehab, who presented with fevers, chills, hematuria after outpatient Linares catheter replacement. Managed for septic shock. Required initial management in ICU with pressors whi ch have been weaned off. Blood cultures 03/31/2021: Pseudomonas aeruginosa Urine culture 03/31/21: Pseudomonas and Enterococcus Blood cultures 04/02/21: Negative -Linares catheter changed on 03/31/21 in ED -ECHO: unchanged from 01/18/21 -Weaned off of pressors Was on zosyn with persistent fevers and leukocytosis Repeat blood cultures on 04/06/21 and 04/07/21 growing pseudomonas Repeat Urine culture 04/06/21 negative so far Patient comorbidities, history of bioprosthetic valve for mitral valvular repair; infective endocarditis cannot be ruled out. TTE did not show any vegetations. Per cardiology, patient is not a candidate for valvular intervention. Based on sensitivities of blood culture of 04/06/21, pseudomonas appear to now be resistant to cefepime and intermediate to zosyn. This may explain persistent bacteremia. Antibiotics was changed to IV Meropenem yesterday. Panscan with CT chest/abd/pelvis w/co to look for other nidus/sources/abscess showed 2 small prostatic abscesses Discussed with infectious disease Dr Warren Follow up repeat blood cultures from today. 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 This may reflect an infarct with subacute hemorrhage. Patient had right hemianopsia before but developed total blindness on 04/06/21 New infarcts seen on CT head likely embolic with his cardiac comorbidities (valvulopathies and Afib) Previous hemorrhage stable Case discussed with Systems Programmer Analyst/Neurologist. Due to size of infarct, neurologist does not recommend anticoagulation at this time. Started on aspirin 81mg - tolerating ASA so far continue to monitor No anticoagulation for now due to high risk of hemorrhagic transformation Will need repeat Head CT 04/13/21 prior to assessing for resumption of anticoagulation Poor prognosis -Acute renal failure Likely ischemic ATN secondary to septic shock Resolved Cr: 3.8>3.15>2.43>1.77>1.28>1.29>1.33>1.29>1.17>0.97 Avoid nephrotoxic agents as able Monitor renal function Renal function improved -Lactic acidosis -Hypokalemia Resolved -Mild troponin elevation Secondary to sepsis Denied any anginal symptoms -Chronic systolic heart failure -H/O Bioprosthetic AVR/mitral valve repair -H/O prosthetic valve stenosis -Recent Streptococcus Endocarditis Systems Programmer Analyst recommendations appreciated -Atrial fibrillation Recently discontinued anticoagulation secondary to intracranial hemorrhage Rate controlled Anticoagulation plans as detailed above -Esophageal varices -Esophagitis Continue pantoprazole -BPH Continue finasteride -H/O PVD Past tobacco use Aspirin on hold DVT Px: SCD Code Status DNR/DNI Palliative care on board aiding with goals of care. per Dr. Villar's notes: prefers for patient to ultimately come home when stable but stated she may want him to go to rehab before that She will like him to continue antibiotic therapy for now Admission and Anticipated Discharge Date Admission Date: March 31, 2021 Subjective ff up for bacteremia, etc seen resting in bed, comfortable states he feels fine overall no abdominal pain, chest pain, dyspnea, nausea no other symptoms appetite is good Review of Systems Review of Systems: All systems reviewed & are unremarkable except as noted in Subjective Physical Exam Physical Exam: General- oriented x 3, not in distress, speaks in sentences with no effort or accessory muscle use Eyes- anicteric Neck- no JVD Lungs- clear BS BL Heart- normal rate, regular rhythm; no murmurs Abdomen- normal bowel sounds, nondistended, soft, nontender FC in place draining yellow urine Extremities- no pretibial edema, no calf tenderness Neuro- alert, oriented x 3; (+) can only detect movement with finger counting L sided weakness Skin- warm & dry Results & Data Results & Data ([facility]) Vital Signs (Past 12 Hours) Vital Signs Temp Pulse Pulse Resp BP BP Pulse Ox 04/12/21 16:09 36.7 C 45 L 97 H 131/78 97 04/12/21 15:15 54 L 04/12/21 11:37 36.9 C 59 L 20 148/82 H 96 04/12/21 08:00 65 04/12/21 07:30 36.4 C L 63 20 172/76 H 97
[2021-04-12] MEDS: TAMSULOSIN HCL 0.4 MG CAP PO SCH (20:23)
[2021-04-12] MEDS: ESCITALOPRAM OXALATE 20 MG TAB PO SCH (20:23)
[2021-04-12] MEDS: FINASTERIDE 5 MG TAB PO SCH (20:24)
[2021-04-12] MEDS: ACETAMINOPHEN 325 MG TAB PO SCH (20:36)
[2021-04-13] MEDS: MEROPENEM 2,000 MG in 0.9 % SODIUM CHLORIDE 58 ML IV SCH ×3 (01:59→18:14)
[2021-04-13] MEDS: ASPIRIN 81 MG ECTAB PO SCH (08:42)
--- NOTE | 2021-04-13 09:28 | CT Scan Report ---
CT head/brain wo con CLINICAL HISTORY: 80 years-old Male with ff up Acute CVA. Acute strokelike symptoms TECHNIQUE: Multiple axial CT images of the head were obtained without contrast. A dose lowering tech nique was utilized adhering to the principles of ALARA. CT DOSE: 537.48 mGy.cm COMPARISON: Head CT 04/07/2021, 04/03/2021, brain MRI 04/01/2021. FINDINGS: No midline shift or abnormal extra-axial collections. Expected evolution of the subacute infarcts of the bilateral temporal occipital lobes with associated cytotoxic edema. 4.7 x 2.7 cm subacute hemorrh agic focus within the left occipital lobe is unchanged additional smaller subacute infarcts are howard r seen on comparison brain MRI 04/01/2021, notably within the superior right cerebral convexity in the frontal and parietal lobes. Age-related involutional changes. No new acute intracranial hemorrhage or infarct is identified. White matter hypodensities suggestive of chronic microvascular ischemic disea se. Chronic infarcts of the cerebellar hemispheres. The calvarium is intact. The paranasal sinuses, mastoid air cells, and middle ear cavities are clear . IMPRESSION: 1. Expected evolutionary changes of the bilateral subacute temporal occipital and right frontal parie ryan infarcts with subacute hemorrhagic focus of the left occipital lobe. 2. No acute intracranial hemorrhage or midline shift. ACT 112: Negative or not required by law. The above report was generated using voice recognition software. It may contain grammatical, syntax o r spelling errors. Electronically signed by: Emmanuel Mcclelland M.D. 04/13/2021 9:27 AM
[2021-04-13] MEDS: PANTOprazole 40 MG TAB PO SCH ×2 (10:09→20:36)
--- NOTE | 2021-04-13 12:44 | XRay Report ---
XR chest 1V portable CLINICAL HISTORY: PICC line tip placement COMPARISON STUDY: April 01, 2021 FINDINGS: No pneumothorax. Interval development of the silhouetting of the left hemidiaphragm and dense left re trocardiac opacity likely representing small to moderate left pleural effusion probably associated wi th atelectasis/infiltrate at the left lower lung. Diffuse reticular nodular prominence of pulmonary interstitium is slightly worsened since prior. Moderate to severe cardiomegaly, slightly worsened since prior. Pulmonary vasculature is indistinct.. Aortic calcifications are demonstrated. Osseous structures: Mild degenerative changes of the spine. Interval placement of right-sided PICC line with tip projecting to the anatomical region of superior vena cava. Prosthetic aortic valve and mitral ring are again seen. Midline sternotomy wires and extensive orthopedic hardware are seen projecting to mediastinal region. IMPRESSION: 1. Interval placement of right-sided PICC line. No evidence of pneumothorax. 2. Mild interval worsening of cardiomegaly. Diffuse prominence of pulmonary interstitium likely repr esenting pulmonary edema. 3. Interval development of left pleural effusion probably associated with atelectasis/infiltrate. ACT 112: Negative or not required by law. The above report was generated using voice recognition software. It may contain grammatical, syntax o r spelling errors. Electronically signed by: Faustina Carpenter DO 04/13/2021 12:43 PM
--- NOTE | 2021-04-13 14:45 | Hospitalist Progress Note ---
Date of Service April 13, 2021 Assessment & Plan (1) Hypotension: per admitting service notes: -Septic shock -Bacteremia -Complicated UTI 80-year-old man with history significant for aortic valvular replacement and mitral valvular repair with annuloplasty in 2009, recent hospitalization here at [facility] in 12/2020 and subsequent [place] [facility] recent left occipital intraparenchymal hematoma in 01/2021 and was discharged off anticoagulation despite history of chronic A. fib to rehab, who presented with fevers, chills, hematuria after outpatient Linares catheter replacement. Managed for septic shock. Required initial management in ICU with pressors whi ch have been weaned off. Blood cultures 03/31/2021: Pseudomonas aeruginosa Urine culture 03/31/21: Pseudomonas and Enterococcus Blood cultures 04/02/21: Negative -Linares catheter changed on 03/31/21 in ED -ECHO: unchanged from 01/18/21 -Weaned off of pressors Was on zosyn with persistent fevers and leukocytosis Repeat blood cultures on 04/06/21 and 04/07/21 growing pseudomonas Repeat Urine culture 04/06/21 negative so far Patient comorbidities, history of bioprosthetic valve for mitral valvular repair; infective endocarditis cannot be ruled out. TTE did not show any vegetations. Per cardiology, patient is not a candidate for valvular intervention. Based on sensitivities of blood culture of 04/06/21, pseudomonas appear to now be resistant to cefepime and intermediate to zosyn. This may explain persistent bacteremia. Antibiotics was changed to IV Meropenem yesterday. Panscan with CT chest/abd/pelvis w/co to look for other nidus/sources/abscess showed 2 small prostatic abscesses Discussed with infectious disease Dr Warren Follow up repeat blood cultures from today. 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 This may reflect an infarct with subacute hemorrhage. Patient had right hemianopsia before but developed total blindness on 04/06/21 New infarcts seen on CT head likely embolic with his cardiac comorbidities (valvulopathies and Afib) Previous hemorrhage stable Case discussed with Material Distributor/Neurologist. Due to size of infarct, neurologist does not recommend anticoagulation at that time. Started on aspirin 81mg repeat CT head: IMPRESSION: 1. Expected evolutionary changes of the bilateral subacute temporal occipital and right frontal parietal infarcts with subacute hemorrhagic focus of the left occipital lobe. 2. No acute intracranial hemorrhage or midline shift. discussed with Dr. 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 per Dr. Villar's notes: prefers for patient to ultimately come home when stable but stated she may want him to go to rehab before that She will like him to continue antibiotic therapy for now Admission and Anticipated Discharge Date Admission Date: March 31, 2021 Subjective ff up for bacteremia, acute cva, etc seen resting in bed, not in distress, comfortable states he feels about the same- feels ok overall no headache, new neuro symptoms no chest pain, dyspnea, palpitations, dizziness no abdominal pain appetite is good no other symptoms Review of Systems Review of Systems: All systems reviewed & are unremarkable except as noted in Subjective Physical Exam Physical Exam: General- oriented x 2, not in distress, speaks in sentences with no effort or accessory muscle use Eyes- anicteric Neck- no JVD Lungs- clear BS BL no rales Heart- normal rate, regular rhythm; no murmurs Abdomen- normal BS, nondistended, soft, nontender Linares Cath: no hematuria Extremities- no pretibial edema, no calf tenderness Neuro- alert, oriented x 2; no new gross focal neurologic deficits Skin- warm & dry Results & Data Results & Data ([facility]) Vital Signs (Past 12 Hours) Vital Signs Temp Pulse Pulse Resp BP Pulse Ox 04/13/21 11:54 36.5 C 62 20 165/80 H 98 04/13/21 08:05 37.2 C 63 18 165/89 H 98 04/13/21 04:27 36.6 C 58 L 20 171/85 H 96 all noted and reviewed including below
[2021-04-13 15:12] LABS: INR 1.2 (0.9-1.1); Prothrombin Time 11.9 Seconds (9.0-12.0)
[2021-04-13] MEDS ORDERED: WARFARIN SOD 2 MG TAB PO SCH (17:30)
[2021-04-13] MEDS: FINASTERIDE 5 MG TAB PO SCH (20:36)
[2021-04-13] MEDS: ESCITALOPRAM OXALATE 20 MG TAB PO SCH (20:36)
[2021-04-13] MEDS: TAMSULOSIN HCL 0.4 MG CAP PO SCH (20:36)
[2021-04-13] MEDS: ACETAMINOPHEN 325 MG TAB PO SCH (20:36)
[2021-04-14] MEDS: MEROPENEM 2,000 MG in 0.9 % SODIUM CHLORIDE 58 ML IV SCH ×3 (02:43→18:01)
[2021-04-14 07:24] LABS: Basophils # (auto) 0.02 K/uL (0-0.2); Basophils % (auto) 0.3 %; Eosinophils # (auto) 0.22 K/uL (0-0.5); Hematocrit (blood only) 28.6 % (42-52); Hemoglobin 9.4 g/dL (14.0-18.0); Immature Granulocytes # (auto) 0.04 K/uL (0.00-0.02); Immature Granulocytes % (auto) 0.5 %; Lymphocytes # (auto) 1.54 K/uL (1.2-3.4); Lymphocytes % (auto) 20.9 %; Mean Corpuscular Hemoglobin 33.1 pg (25-34); Mean Corpuscular Hgb Conc 32.9 g/dL (32-36); Mean Corpuscular Volume 100.7 fL (80-100); Mean Platelet Volume 9.1 fL (7.4-10.4); Monocytes # (auto) 0.63 K/uL (0.11-0.59); Monocytes % (auto) 8.6 %; Neutrophils # (auto) 4.91 K/uL (1.4-6.5); Neutrophils % (auto) 66.7 %; Platelet Count 206 K/uL (130-400); RDW Coefficient of Variation 13.6 % (11.5-14.5); RDW Standard Deviation 49.9 fL (36.4-46.3); Red Blood Count 2.84 M/uL (4.7-6.1); White Blood Count 7.36 K/uL (4.8-10.8)
[2021-04-14 07:43] LABS: INR 1.2 (0.9-1.1); Prothrombin Time 11.8 Seconds (9.0-12.0)
[2021-04-14 07:47] LABS: Calcium 8.8 mg/dl (8.5-10.1); Creatinine Clr Calc Pharmacy 77.2 ml/min; Est GFR (African American) 94.7 ml/min; Est GFR (Non-African American) 81.7 ml/min; Potassium 3.7 mmol/L (3.5-5.1)
[2021-04-14] MEDS: ASPIRIN 81 MG ECTAB PO SCH (09:25)
[2021-04-14] MEDS: PANTOprazole 40 MG TAB PO SCH ×2 (09:25→20:47)
[2021-04-14] MEDS: buPROPion XL 150 MG TABCR PO SCH (14:33)
[2021-04-14] MEDS: WARFARIN SOD 3 MG TAB PO SCH (16:41)
--- NOTE | 2021-04-14 16:42 | Cardiology Progress Note ---
Date of Service April 14, 2021 Assessment & Plan (1) Atrial fibrillation: (2) Stroke: Images of recent CT of the chest performed 04/09/2021 reviewed, agree with impression of left atrial appendage thrombus. CT of the brain 04/13/2021 without new intracranial hemorrhage -Aspirin discontinued -Coumadin started 04/13/2021, 3 mg due today. -INR 1.2. 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 Maintains ongoing visual deficit. No other complaints. Telemetry reveals atrial fibrillation with slow ventricular response in the 50s. Physical Exam Physical Exam: Temp Pulse Resp BP Pulse Ox 37.0 C 57 L 18 132/72 96 04/14/21 15:28 04/14/21 16:00 04/14/21 15:28 04/14/21 15:28 04/14/21 15:28 Respiratory: normal respiratory effort, lungs clear to auscultation Cardiovascular: Rate/Rhythm: + irregularly irregular Heart Sounds: + murmur (2/6 systolic murmur) Neurologic: Left upper extremity, visual deficit. Genitourinary: Linares catheter in place Results & Data ([facility]) Vital Signs (Past 12 Hours) Vital Signs Temp Pulse Pulse Resp BP Pulse Ox 04/14/21 16:00 57 L 04/14/21 15:28 37.0 C 58 L 18 132/72 96 04/14/21 11:42 36.7 C 49 L 16 153/84 H 98 04/14/21 08:00 63 04/14/21 07:57 36.5 C 62 18 134/63 98 Laboratory Results Coagulation 04/14/21 Range/Units 07:01 PT 11.8 (9.0-12.0) Seconds CBC 04/14/21 Range/Units 07:01 WBC 7.36 (4.8-10.8) K/uL RBC 2.84 L (4.7-6.1) M/uL Hgb 9.4 L (14.0-18.0) g/dL Hct 28.6 L (42-52) % Plt Count 206 (130-400) K/uL Neut # (Auto) 4.91 (1.4-6.5) K/uL Lymph # (Auto) 1.54 (1.2-3.4) K/uL [place] # (Auto) 0.63 H (0.11-0.59) K/uL Eos # (Auto) 0.22 (0-0.5) K/uL Baso # (Auto) 0.02 (0-0.2) K/uL Comprehensive Metabolic Panel 04/14/21 Range/Units 07:01 Sodium 135 L (136-145) mmol/L Potassium 3.7 (3.5-5.1) mmol/L Chloride 102 (98-107) mmol/L Carbon Dioxide 29 (21-32) mmol/L BUN 18 (7-18) mg/dl Creatinine 0.85 (0.6-1.4) mg/dl Glucose 97 (70-99) mg/dl Calcium 8.8 (8.5-10.1) mg/dl Intake and Output 04/14/21 04/14/21 04/14/21 06:59 14:59 22:59 Intake Total 200 / 1130 400 / 400 Output Total 750 / 1701 401 / 401 Balance -550 / -571 - Intake: IV 100 / 300 100 / 100 Meropenem 2,000 mg In 0.9 % 100 / 300 100 / 100 Sodium Chloride 58 ml @ 200 mls /hr IV Q8H [facility] Rx#:[id number] Oral 100 / 830 300 / 300 Output: Urine Amount (Catheter) 750 / 1700 400 / 400 Linares/Indwelling 750 / 1700 400 / 400 # Bowel Movements Other: Weight 90.7 kg Weight Measurement Method Built in [facility]
--- NOTE | 2021-04-14 17:51 | Hospitalist Progress Note ---
Date of Service April 14, 2021 Assessment & Plan (1) Hypotension: per admitting service notes: -Septic shock -Bacteremia -Complicated UTI 80-year-old man with history significant for aortic valvular replacement and mitral valvular repair with annuloplasty in 2009, recent hospitalization here at [facility] in 12/2020 and subsequent [place] [facility] recent left occipital intraparenchymal hematoma in 01/2021 and was discharged off anticoagulation despite history of chronic A. fib to rehab, who presented with fevers, chills, hematuria after outpatient Linares catheter replacement. Managed for septic shock. Required initial management in ICU with pressors whi ch have been weaned off. Blood cultures 03/31/2021: Pseudomonas aeruginosa Urine culture 03/31/21: Pseudomonas and Enterococcus Blood cultures 04/02/21: Negative -Linares catheter changed on 03/31/21 in ED -ECHO: unchanged from 01/18/21 -Weaned off of pressors Was on zosyn with persistent fevers and leukocytosis Repeat blood cultures on 04/06/21 and 04/07/21 growing pseudomonas Repeat Urine culture 04/06/21 negative so far Patient comorbidities, history of bioprosthetic valve for mitral valvular repair; infective endocarditis cannot be ruled out. TTE did not show any vegetations. Per cardiology, patient is not a candidate for valvular intervention. Based on sensitivities of blood culture of 04/06/21, pseudomonas appear to now be resistant to cefepime and intermediate to zosyn. This may explain persistent bacteremia. Antibiotics was changed to IV Meropenem yesterday. Panscan with CT chest/abd/pelvis w/co to look for other nidus/sources/abscess showed 2 small prostatic abscesses Discussed with infectious disease Dr Warren Follow up repeat blood cultures from today. 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 This may reflect an infarct with subacute hemorrhage. Patient had right hemianopsia before but developed total blindness on 04/06/21 New infarcts seen on CT head likely embolic with his cardiac comorbidities (valvulopathies and Afib) Previous hemorrhage stable Case discussed with Induction Machine Operator/Neurologist. Due to size of infarct, neurologist does not recommend anticoagulation at that time. Started on aspirin 81mg repeat CT head: IMPRESSION: 1. Expected evolutionary changes of the bilateral subacute temporal occipital and right frontal parietal infarcts with subacute hemorrhagic focus of the left occipital lobe. 2. No acute intracranial hemorrhage or midline shift. discussed with Dr. Walter recommend gradual resumption of coumadin, d/c Aspirin 04/14 inr 1.2, continue with Coumadin 3mg daily -Acute renal failure Likely ischemic ATN secondary to septic shock Resolved Cr: 3.8>3.15>2.43>1.77>1.28>1.29>1.33>1.29>1.17>0.97 Avoid nephrotoxic agents as able Monitor renal function Renal function improved -Lactic acidosis -Hypokalemia Resolved -Mild troponin elevation Secondary to sepsis Denied any anginal symptoms -Chronic systolic heart failure -H/O Bioprosthetic AVR/mitral valve repair -H/O prosthetic valve stenosis -Recent Streptococcus Endocarditis Induction Machine Operator recommendations appreciated -Atrial fibrillation Recently discontinued anticoagulation secondary to intracranial hemorrhage Rate controlled Anticoagulation plans as detailed above -Esophageal varices -Esophagitis Continue pantoprazole -BPH Continue finasteride -H/O PVD Past tobacco use Aspirin on hold DVT Px: SCD Code Status DNR/DNI Palliative care on board aiding with goals of care. per Dr. Villar's notes: prefers for patient to ultimately come home when stable but stated she may want him to go to rehab before that She will like him to continue antibiotic therapy for now Admission and Anticipated Discharge Date Admission Date: March 31, 2021 Subjective ff up for bacteremia, etc seen sitting up in bed, not in distress states he feels fine, just tired no headache, dizziness, new neuro symptoms no chest pain, dyspnea, palpitations, abdominal pain no fever/chills no other symptoms Review of Systems Review of Systems: All systems reviewed & are unremarkable except as noted in Subjective Physical Exam Physical Exam: General- oriented x 3, not in distress, speaks in sentences with no effort or accessory muscle use Eyes- anicteric Neck- no JVD Lungs- clear BS BL Heart- normal rate, irregularly irregular rhythm; no murmurs Abdomen- normal bowel sounds, nondistended, soft, nontender Extremities- no pretibial edema, no calf tenderness Neuro- alert, oriented x 3; no new gross focal neurologic deficits Skin- warm & dry Results & Data Results & Data ([facility]) Vital Signs (Past 12 Hours) Vital Signs Temp Pulse Pulse Resp BP Pulse Ox 04/14/21 16:00 57 L 04/14/21 15:28 37.0 C 58 L 18 132/72 96 04/14/21 11:42 36.7 C 49 L 16 153/84 H 98 04/14/21 08:00 63 04/14/21 07:57 36.5 C 62 18 134/63 98 Laboratory Results Laboratory Results - last 24 hr 04/14/21 04/14/21 04/14/21 07:01 07:01 07:01 WBC 7.36 RBC 2.84 L Hgb 9.4 L Hct 28.6 L MCV 100.7 H MCH 33.1 MCHC 32.9 RDW Std Deviation 49.9 H RDW Coeff of Luis 13.6 Plt Count 206 MPV 9.1 Immature Gran % (Auto) 0.5 Neut % (Auto) 66.7 Lymph % (Auto) 20.9 [place] % (Auto) 8.6 Eos % (Auto) 3.0 Baso % (Auto) 0.3 Neut # (Auto) 4.91 Lymph # (Auto) 1.54 [place] # (Auto) 0.63 H Eos # (Auto) 0.22 Baso # (Auto) 0.02 Immature Gran # (Auto) 0.04 H PT 11.8 INR 1.2 H Sodium 135 L Potassium 3.7 Chloride 102 Carbon Dioxide 29 Anion Gap 4.0 BUN 18 Creatinine 0.85 Est Cr Clr Drug Dosing 77.2 Est GFR ( Amer) 94.7 Est GFR (Non-Af Amer) 81.7 BUN/Creatinine Ratio 21.0 H Glucose 97 Calcium 8.8
[2021-04-14 18:22] LABS: Appearance Urine Cloudy (Clear); Bacteria Urine Automated Negative (Negative); Bilirubin Urine Negative (Negative); Blood Urine 3+ (Negative); Color Urine Dark Yellow; Glucose Urine UA Negative (Negative); Ketones Urine Trace (Negative); Leukocyte Esterase Urine Negative (Negative); Nitrite Urine Negative (Negative); Protein Urine 1+ (Negative); Specific Gravity Urine 1.023 (1.000-1.030); Urobilinogen Urine Positive (Negative)
[2021-04-14 18:51] LABS: RBC Urine Automated >30 /hpf (0-4)
[2021-04-14] MEDS: ACETAMINOPHEN 325 MG TAB PO SCH (20:47)
[2021-04-14] MEDS: FINASTERIDE 5 MG TAB PO SCH (20:47)
[2021-04-14] MEDS: ESCITALOPRAM OXALATE 20 MG TAB PO SCH (20:47)
[2021-04-14] MEDS: TAMSULOSIN HCL 0.4 MG CAP PO SCH (20:47)
[2021-04-14] MEDS: MELATONIN 3 MG TAB PO PRN (21:48)
[2021-04-15] MEDS: MEROPENEM 2,000 MG in 0.9 % SODIUM CHLORIDE 58 ML IV SCH ×3 (02:38→17:47)
[2021-04-15 07:39] LABS: INR 1.2 (0.9-1.1); Prothrombin Time 11.9 Seconds (9.0-12.0)
[2021-04-15] MEDS: PANTOprazole 40 MG TAB PO SCH ×2 (09:49→20:58)
--- NOTE | 2021-04-15 15:04 | Cardiology Progress Note ---
Date of Service April 15, 2021 Assessment & Plan (1) Stroke: (2) Atrial fibrillation: (3) Prostate abscess: (4) Prosthetic aortic valve stenosis: (1) Stroke: -Stroke episode December, affecting left occipital lobe with hemorrhagic transformation, in the setting of streptococcal bacteremia at that time, presumed endocarditis for which patient completed 6 weeks of therapy with IV Rocephin. He remained off of anticoagulation due to hemorrhagic stroke. Presented this hospital stay with new left-sided weakness. Remained off of anticoagulation due to concerns of bleeding risks, but ultimately developed a third large right occipital/posterior temporal ischemic stroke with resultant vision loss. No hemorrhage or transformation on serial imaging, Coumadin reinitiated with caution on 04/13/2021. Currently, off aspirin, on Coumadin, INR 1.2 today 04/15/2021. (2) Atrial fibrillation: -Permanent atrial fibrillation. -Left atrial appendage thrombus noted on CT of the chest 04/09/2021 (3) Prostate abscess: -Pseudomonas aeruginosa bacteremia, with positive blood cultures on 04/06/2021, 04/07/2021, 04/09/2021. Cultures drawn 04/10/2021 negative thus far. 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 -Not a candidate for intervention given bacteremia, history of hemorrhagic stroke. -Continue cautious anticoagulation with Coumadin. Continue antibiotic therapy with meropenem, Linares catheter remains in place. Admission and Anticipated Discharge Date Admission Date: March 31, 2021 Subjective Patient denies complaints. Atrial fibrillation in the 50s noted on telemetry. Physical Exam Physical Exam: Temp Pulse Resp BP Pulse Ox 36.6 C 53 L 17 122/66 94 04/15/21 11:50 04/15/21 14:48 04/15/21 11:50 04/15/21 11:50 04/15/21 11:50 Constitutional: WD/WN, vitals as above Respiratory: normal respiratory effort, lungs clear to auscultation Cardiovascular: Rate/Rhythm: + irregularly irregular Heart Sounds: + murmur (2/6 systolic murmur) Gastrointestinal (Abdomen): normal bowel sounds, soft, nontender, no hepatosplenomegaly Neurologic: Visual deficit (blindness), left upper extremity clumsiness Genitourinary: Linares catheter in place draining clear urine Results & Data ([facility]) Vital Signs (Past 12 Hours) Vital Signs Temp Pulse Pulse Pulse Resp BP BP 04/15/21 14:48 53 L 04/15/21 11:50 36.6 C 64 17 122/66 04/15/21 08:00 50 L 04/15/21 03:28 36.4 C L 61 14 158/84 H Pulse Ox 04/15/21 14:48 04/15/21 11:50 94 04/15/21 08:00 04/15/21 03:28 99
[2021-04-15] MEDS: WARFARIN SOD 3 MG TAB PO SCH (16:18)
--- NOTE | 2021-04-15 17:32 | Hospitalist Progress Note ---
Date of Service April 15, 2021 Assessment & Plan (1) Hypotension: per admitting service notes: -Septic shock -Bacteremia -Complicated UTI 80-year-old man with history significant for aortic valvular replacement and mitral valvular repair with annuloplasty in 2009, recent hospitalization here at [facility] in 12/2020 and subsequent [place] [facility] [place] recent left occipital intraparenchymal hematoma in 01/2021 and was discharged off anticoagulation despite history of chronic A. fib to rehab, who presented with fevers, chills, hematuria after outpatient Ch catheter replacement. Managed for septic shock. Required initial management in ICU with pressors whi ch have been weaned off. Blood cultures 03/31/2021: Pseudomonas aeruginosa Urine culture 03/31/21: Pseudomonas and Enterococcus Blood cultures 04/02/21: Negative -Ch catheter changed on 03/31/21 in ED -ECHO: unchanged from 01/18/21 -Weaned off of pressors Was on zosyn with persistent fevers and leukocytosis Repeat blood cultures on 04/06/21 and 04/07/21 growing pseudomonas Repeat Urine culture 04/06/21 negative so far Patient comorbidities, history of bioprosthetic valve for mitral valvular repair; infective endocarditis cannot be ruled out. TTE did not show any vegetations. Per cardiology, patient is not a candidate for valvular intervention. Based on sensitivities of blood culture of 04/06/21, pseudomonas appear to now be resistant to cefepime and intermediate to zosyn. This may explain persistent bacteremia. Antibiotics was changed to IV Meropenem yesterday. Panscan with CT chest/abd/pelvis w/co to look for other nidus/sources/abscess showed 2 small prostatic abscesses Discussed with infectious disease Dr Warren Follow up repeat blood cultures from today. 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 This may reflect an infarct with subacute hemorrhage. Patient had right hemianopsia before but developed total blindness on 04/06/21 New infarcts seen on CT head likely embolic with his cardiac comorbidities (valvulopathies and Afib) Previous hemorrhage stable Case discussed with Health Safety Specialist/Neurologist. Due to size of infarct, neurologist does not recommend anticoagulation at that time. Started on aspirin 81mg repeat CT head: IMPRESSION: 1. Expected evolutionary changes of the bilateral subacute temporal occipital and right frontal parietal infarcts with subacute hemorrhagic focus of the left occipital lobe. 2. No acute intracranial hemorrhage or midline shift. discussed with Dr. Walter recommend gradual resumption of coumadin, d/c Aspirin 04/15 inr 1.2, continue with Coumadin 3mg daily monitor closely -Acute renal failure Likely ischemic ATN secondary to septic shock Resolved Cr: 3.8>3.15>2.43>1.77>1.28>1.29>1.33>1.29>1.17>0.97 Avoid nephrotoxic agents as able Monitor renal function Renal function improved -Lactic acidosis -Hypokalemia Resolved -Mild troponin elevation Secondary to sepsis Denied any anginal symptoms -Chronic systolic heart failure -H/O Bioprosthetic AVR/mitral valve repair -H/O prosthetic valve stenosis -Recent Streptococcus Endocarditis Health Safety Specialist recommendations appreciated -Atrial fibrillation Recently discontinued anticoagulation secondary to intracranial hemorrhage Rate controlled Anticoagulation plans as detailed above -Esophageal varices -Esophagitis Continue pantoprazole -BPH Continue finasteride -H/O PVD Past tobacco use Aspirin on hold DVT Px: SCD back on coumadin Code Status DNR/DNI Palliative care on board aiding with goals of care. plan of care discussed with patient in detail and at length, also with his yesterday all questions answered they are understanding, agreeable, comfortable with the plan of care Admission and Anticipated Discharge Date Admission Date: March 31, 2021 Subjective ff up for bacteremia, etc seen resting in bed, comfortable states he feels fine overall no headache, dizziness, new neurologic deficit no abdominal pain, nausea, chills appetite is good no other symptoms Review of Systems Review of Systems: All systems reviewed & are unremarkable except as noted in Subjective Physical Exam Physical Exam: General- oriented x 2, not in distress, speaks in sentences with no effort or accessory muscle use Eyes- anicteric Neck- no JVD Lungs- clear BS BL Heart- normal rate, regular rhythm; no murmurs Abdomen- normal bowel sounds, nondistended, soft, nontender Extremities- no pretibial edema, no calf tenderness ch cath: bhanu colored urine Neuro- alert, oriented x 2; no new gross focal neurologic deficits Skin- warm & dry Results & Data Results & Data ([facility]) Vital Signs (Past 12 Hours) Vital Signs Temp Pulse Pulse Resp BP BP Pulse Ox 04/15/21 16:00 53 L 04/15/21 15:58 37.3 C 52 L 18 156/79 H 97 04/15/21 14:48 53 L 04/15/21 11:50 36.6 C 64 17 122/66 94 04/15/21 08:00 50 L all noted and reviewed including below Laboratory Results Laboratory Results - last 24 hr 04/14/21 04/15/21 Unknown 07:02 PT 11.9 INR 1.2 H Urine Color Dark Yellow Urine Appearance Cloudy A Urine pH 5.0 Ur Specific [place] 1.023 Urine Protein 1+ H Urine Glucose (UA) Negative Urine Ketones Trace H Urine Blood 3+ H Urine Nitrite Negative Urine Bilirubin Negative Urine Urobilinogen Positive H Ur Leukocyte Esterase Negative Urine WBC (Auto) 5-10 H Urine RBC (Auto) >30 H U Hyaline Cast (Auto) 5-10 H U Epithel Cells (Auto) 10-20 H Urine Bacteria (Auto) Negative Urine Yeast Not Reportable
[2021-04-15] MEDS: MELATONIN 3 MG TAB PO PRN (20:57)
[2021-04-15] MEDS: TAMSULOSIN HCL 0.4 MG CAP PO SCH (20:58)
[2021-04-15] MEDS: ESCITALOPRAM OXALATE 20 MG TAB PO SCH (20:58)
[2021-04-15] MEDS: ACETAMINOPHEN 325 MG TAB PO SCH (20:58)
[2021-04-15] MEDS: FINASTERIDE 5 MG TAB PO SCH (20:58)
[2021-04-16] MEDS: MEROPENEM 2,000 MG in 0.9 % SODIUM CHLORIDE 58 ML IV SCH ×3 (02:45→17:38)
[2021-04-16 06:05] LABS: INR 1.3 (0.9-1.1); Prothrombin Time 12.5 Seconds (9.0-12.0)
[2021-04-16] MEDS: PANTOprazole 40 MG TAB PO SCH ×2 (09:13→20:40)
[2021-04-16] MEDS ORDERED: WARFARIN SOD 4 MG TAB PO SCH (16:00)
[2021-04-16 17:58] LABS: Basophils # (auto) 0.01 K/uL (0-0.2); Basophils % (auto) 0.1 %; Eosinophils # (auto) 0.16 K/uL (0-0.5); Eosinophils % (auto) 2.2 %; Hematocrit (blood only) 28.7 % (42-52); Hemoglobin 9.2 g/dL (14.0-18.0); Immature Granulocytes # (auto) 0.01 K/uL (0.00-0.02); Immature Granulocytes % (auto) 0.1 %; Lymphocytes # (auto) 1.63 K/uL (1.2-3.4); Lymphocytes % (auto) 22.3 %; Mean Corpuscular Hemoglobin 32.4 pg (25-34); Mean Corpuscular Hgb Conc 32.1 g/dL (32-36); Mean Corpuscular Volume 101.1 fL (80-100); Mean Platelet Volume 9.3 fL (7.4-10.4); Monocytes % (auto) 6.8 %; Neutrophils # (auto) 4.99 K/uL (1.4-6.5); Neutrophils % (auto) 68.5 %; Platelet Count 180 K/uL (130-400); RDW Coefficient of Variation 13.6 % (11.5-14.5); Red Blood Count 2.84 M/uL (4.7-6.1)
[2021-04-16 18:33] LABS: Calcium 8.3 mg/dl (8.5-10.1); Creatinine Clr Calc Pharmacy 64.4 ml/min; Est GFR (African American) 79.5 ml/min; Est GFR (Non-African American) 68.6 ml/min; Magnesium 2.4 mg/dl (1.8-2.4); Potassium 3.8 mmol/L (3.5-5.1)
--- NOTE | 2021-04-16 18:34 | Hospitalist Progress Note ---
Date of Service April 16, 2021 Assessment & Plan (1) Hypotension: per admitting service notes: -Septic shock -Bacteremia -Complicated UTI 80-year-old man with history significant for aortic valvular replacement and mitral valvular repair with annuloplasty in 2009, recent hospitalization here at [facility] in 12/2020 and subsequent transfer to [facility] [place] [place] for endocarditis recent left occipital intraparenchymal hematoma in 01/2021 and was discharged off anticoagulation despite history of chronic A. fib to rehab, who presented with fevers, chills, hematuria after outpatient Linares catheter replacement. Managed for septic shock. Required initial management in ICU with pressors whi ch have been weaned off. Blood cultures 03/31/2021: Pseudomonas aeruginosa Urine culture 03/31/21: Pseudomonas and Enterococcus Blood cultures 04/02/21: Negative -Linares catheter changed on 03/31/21 in ED -ECHO: unchanged from 01/18/21 -Weaned off of pressors Was on zosyn with persistent fevers and leukocytosis Repeat blood cultures on 04/06/21 and 04/07/21 growing pseudomonas Repeat Urine culture 04/06/21 negative so far Patient comorbidities, history of bioprosthetic valve for mitral valvular repair; infective endocarditis cannot be ruled out. TTE did not show any vegetations. Per cardiology, patient is not a candidate for valvular intervention. Based on sensitivities of blood culture of 04/06/21, pseudomonas appear to now be resistant to cefepime and intermediate to zosyn. This may explain persistent bacteremia. Antibiotics was changed to IV Meropenem yesterday. Panscan with CT chest/abd/pelvis w/co to look for other nidus/sources/abscess showed 2 small prostatic abscesses Discussed with infectious disease Dr Warren Follow up repeat blood cultures from today. 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 This may reflect an infarct with subacute hemorrhage. Patient had right hemianopsia before but developed total blindness on 04/06/21 New infarcts seen on CT head likely embolic with his cardiac comorbidities (valvulopathies and Afib) Previous hemorrhage stable Case discussed with Clinic Nurse/Neurologist. Due to size of infarct, neurologist does not recommend anticoagulation at that time. Started on aspirin 81mg repeat CT head: IMPRESSION: 1. Expected evolutionary changes of the bilateral subacute temporal occipital and right frontal parietal infarcts with subacute hemorrhagic focus of the left occipital lobe. 2. No acute intracranial hemorrhage or midline shift. discussed with Dr. 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 plan of care discussed with patient in detail and at length, also with his all questions answered they are understanding, agreeable, comfortable with the plan of care Admission and Anticipated Discharge Date Admission Date: March 31, 2021 Subjective ff up for bacteremia, etc seen with patient's Sunshine visiting at the bedside sitting up in bed, comfortable states he feels the same overall no headache, dizziness, new focal neuro deficits no chest pain, dyspnea, palpitations, dizziness no abdominal pain,nausea/vomiting denies other symptoms Review of Systems Review of Systems: All systems reviewed & are unremarkable except as noted in Subjective Physical Exam Physical Exam: General- oriented x 3, not in distress, speaks in sentences with no effort or accessory muscle use Eyes- anicteric Neck- no JVD Lungs- clear BS no rales or wheezes bilaterally Heart- normal rate, regular rhythm; no murmurs Abdomen- normal bowel sounds, nondistended, soft, nontender Linares cath in place: bhanu colored Extremities- no pretibial edema, no calf tenderness Neuro- alert, oriented x 3; no gross focal neurologic deficits Skin- warm & dry Results & Data Results & Data ([facility]) Vital Signs (Past 12 Hours) Vital Signs Temp Pulse Pulse Resp BP Pulse Ox 04/16/21 15:43 37.3 C 53 L 19 132/76 95 04/16/21 11:36 37.2 C 53 L 19 126/62 92 04/16/21 08:00 59 L 04/16/21 07:13 36.7 C 65 20 159/77 H 96 all noted and reviewed including below Laboratory Results Laboratory Results - last 24 hr 04/16/21 04/16/21 04/16/21 05:30 17:34 17:34 WBC 7.30 RBC 2.84 L Hgb 9.2 L Hct 28.7 L MCV 101.1 H MCH 32.4 MCHC 32.1 RDW Std Deviation 50.0 H RDW Coeff of Luis 13.6 Plt Count 180 MPV 9.3 Immature Gran % (Auto) 0.1 Neut % (Auto) 68.5 Lymph % (Auto) 22.3 Ciales % (Auto) 6.8 Eos % (Auto) 2.2 Baso % (Auto) 0.1 Neut # (Auto) 4.99 Lymph # (Auto) 1.63 [place]iales # (Auto) 0.50 Eos # (Auto) 0.16 Baso # (Auto) 0.01 Immature Gran # (Auto) 0.01 PT 12.5 H INR 1.3 H Sodium 137 Potassium 3.8 Chloride 103 Carbon Dioxide Pending Anion Gap Pending BUN 20 H Creatinine 1.02 Est Cr Clr Drug Dosing 64.4 Est GFR ( Amer) 79.5 Est GFR (Non-Af Amer) 68.6 BUN/Creatinine Ratio 20.0 Glucose 133 H Calcium 8.3 L Magnesium 2.4
[2021-04-16] MEDS: FINASTERIDE 5 MG TAB PO SCH (20:39)
[2021-04-16] MEDS: ACETAMINOPHEN 325 MG TAB PO SCH (20:39)
[2021-04-16] MEDS: ESCITALOPRAM OXALATE 20 MG TAB PO SCH (20:40)
[2021-04-16] MEDS: TAMSULOSIN HCL 0.4 MG CAP PO SCH (20:41)
[2021-04-17] MEDS: MEROPENEM 2,000 MG in 0.9 % SODIUM CHLORIDE 58 ML IV SCH ×2 (02:00→09:31)
[2021-04-17 06:06] LABS: INR 1.6 (0.9-1.1)
[2021-04-17] MEDS: PANTOprazole 40 MG TAB PO SCH (09:26)
[2021-04-17] MEDS ORDERED: ATROPINE SULFATE 0.1 MG/ML 10ML SYR IV ONE (12:22)
[2021-04-17] MEDS ORDERED: STAT IV Infusion **Titration per Protocol STA ×4 (12:45→17:50)
[2021-04-17 12:52] LABS: Basophils # (auto) 0.03 K/uL (0-0.2); Basophils % (auto) 0.3 %; Eosinophils # (auto) 0.23 K/uL (0-0.5); Eosinophils % (auto) 2.3 %; Hematocrit (blood only) 28.9 % (42-52); Hemoglobin 9.5 g/dL (14.0-18.0); Immature Granulocytes # (auto) 0.04 K/uL (0.00-0.02); Immature Granulocytes % (auto) 0.4 %; Lymphocytes # (auto) 3.41 K/uL (1.2-3.4); Lymphocytes % (auto) 33.7 %; Mean Corpuscular Hemoglobin 32.6 pg (25-34); Mean Corpuscular Volume 99.3 fL (80-100); Mean Platelet Volume 9.4 fL (7.4-10.4); Monocytes # (auto) 0.42 K/uL (0.11-0.59); Monocytes % (auto) 4.2 %; Neutrophils # (auto) 5.98 K/uL (1.4-6.5); Neutrophils % (auto) 59.1 %; Platelet Count 197 K/uL (130-400); RDW Coefficient of Variation 13.7 % (11.5-14.5); RDW Standard Deviation 49.5 fL (36.4-46.3); Red Blood Count 2.91 M/uL (4.7-6.1); White Blood Count 10.11 K/uL (4.8-10.8)
[2021-04-17] MEDS ORDERED: fentaNYL citrate 100 MCG/2 ML VIAL ONE (13:06)
[2021-04-17 13:10] LABS: Mean Corpuscular Hgb Conc 32.9 g/dL (32-36)
[2021-04-17 13:11] LABS: INR 1.8 (0.9-1.1); Prothrombin Time 17.5 Seconds (9.0-12.0)
[2021-04-17] MEDS: PHENYLEPHRINE HCL 20 MG in DEXTROSE 5% 500 ML IV SCH ×2 (13:14→14:25)
[2021-04-17] MEDS ORDERED: FOSPHENYTOIN 1,000 MGPE in SODIUM CHLORIDE 0.9% 50 ML IV ONE (13:15)
[2021-04-17] MEDS ORDERED: fentaNYL DRIP 1,250 MCG/250 ML BAG IV SCH (13:15)
[2021-04-17 13:38] LABS: Potassium 3.8 mmol/L (3.5-5.1)
[2021-04-17 13:39] LABS: Creatinine Clr Calc Pharmacy 68.8 ml/min; Est GFR (African American) 86.7 ml/min; Est GFR (Non-African American) 74.8 ml/min
[2021-04-17 13:40] LABS: BUN Creatinine Ratio 18.9 (10-20); Calcium 8.6 mg/dl (8.5-10.1)
[2021-04-17 13:41] LABS: Troponin I 0.321 ng/ml (0-0.045)
--- NOTE | 2021-04-17 13:55 | Critical Care Progress Note ---
Date of Service April 17, 2021 Assessment & Plan (1) Septic shock: Reason Critically Ill: 80-year-old male presents to the ICU with septic shock likely from urinary source, requiring vasopressor support. Neuro - Acute intracranial hemorrhage: Right occipital lobe -This appears to be hemorrhagic conversion from his right occipital infarct. Subacute intracranial hemorrhage: Left occipital lobe patient underwent medical management with hypertonic saline at [place] and had a diagnostic cerebral injury on 01/25 which was without evidence of intracranial vascular malformation, aneurysm, vasospasm, and other intracranial vascular abnormality. Coumadin and heparin were stopped at this time. Likely attributed to supratherapeutic INR. Continue to hold anticoagulation Seizure-like activity -EEG pending -1 g fosphenytoin ordered Depression: Continue Wellbutrin, Lexapro Cardiac - Acute arterial hypotension -Phenylephrine via peripheral line at this time -Goal blood pressure between 100 systolic and 160 systolic t o prevent expansion of hematoma but prevents hypoperfusion Septic shockpreviously resolved -2D echo 04/01/2020: EF 40-45%, LA severely dilated, bioprosthetic aortic valve with severely calcified leaflets PASP 38. -DICK at [place] negative for vegetation, undergoing 6-week antibiotic coarse for presumed treatment -Hold antihypertensives and diuretics at this time CHFpatient with history of valvular heart failure and underwent MVR and AVR in 2009. -2D echo 04/01/2020: 40 to 45% with severe prosthetic aortic stenosis -Holding diuretics due to hypotension -Careful with IV fluids given pulmonary congestion A. fib rate controlled -History of pacemaker -Continuous monitoring on telemetry Systemic anticoagulation - Active reversal with 10 mg IV vitamin K - Kcentra 2000 units in d/w Dr. Anaya Respiratory - Acute hypoxic respiratory failurelikely secondary to upper airway obstruction during seizure-like activity -Decision to intubate was based on new onset seizure activity with potentially correctable medical condition GI - Varices underwent EGD prior to DICK on recent hospitalization at [place]. Found to have small esophageal varices, LA grade a esophagitis, and hematin in the gastric body. Was started on Prilosec daily. Continue PPI RENAL/LYTES - AKIresolved - Linares patient recently had chronic Linares inserted following prior admission approximately 1 month ago in which he was unable to void. He follows with urology outpatient and recently had Linares changed on 03/26/21 -Monitor strict I's and O's BPHFoley cath ENDO - No history of diabetes or thyroid disease, ICU hyperglycemic protocol HEME - Monitor hemoglobin. Transfuse if hemoglobin less than 7 ID - Pseudomonal bacteremia -On meropenem -Unique resistance pattern meropenem can lower seizure threshold --Prophylaxis VTE: IPC's, hold any anticoagulation for recent intracranial hemorrhage GI: Protonix Lines: Right PICC Diet: N.p.o. CODE STATUS: DNR/DNI in event of cardiac arrest I discussed the case with the patient's daughter I am unable to contact the patient's who is reportedly out of state heading to [place] the patient's daughter will attempt to contact the patient's . Patient is requiring increasing doses of vasoactive medications I believe he could be in an active dying process certainly he is in a difficult situation where he has known atrial thrombus yet cannot tolerate anticoagulation and has recurrent thrombotic emboli these emboli could also be septic in origin. I am concerned of a poor p rognosis (2) Acidosis, lactic: (3) Acute pyelonephritis: (4) Acute renal failure: (5) Acute respiratory failure with hypoxia: (6) History of mitral valve replacement: (7) History of aortic valve replacement: (8) Anxiety: (9) Depression: (10) CHF (congestive heart failure): (11) Atrial fibrillation: (12) MONICO (acute kidney injury): Admission and Anticipated Discharge Date Admission Date: March 31, 2021 Supervising Physician Co-Signing Physician Notes I have personally spent 105 minutes of critical care time in the direct management of this patient. This is a life/limb threatening event. This includes time spent evaluating patient, direct bedside care, chart review, placing orders, interpretation of diagnostic studies, discussion with consultants, patient, and/or family members regarding treatment decisions, as well as other required patient management activities. This time is exclusive of all separately billable procedures, and teaching time and separate from and in addition to any other critical care service time. Subjective Responded to code purple for altered mental status and hypotension. Staff described with appeared to be seizure-like activity with full body rigor for approximately 30 seconds and then what may be described as a postictal period of confusion. Patient was feeling unwell and then experienced another episode of mild tonic-clonic activity and sonorous respirations. Patient was given 5 mg Valium and ordered fosphenytoin infusion. Briefly the history was described to me as the patient has a history of atrial fibrillation with artificial heart valves who recently had a hemorrhagic stroke and subsequently had another infarct of unclear etiology. I am concerned the patient could have intracranial bleeding as a source of nidus for seizure activity. Cardiogenic syncope is also in the differential. The patient's slowly transitioning to systemic anticoagulation he is not being bridged and his INR is allowed to slowly creep up. Attempts were made to contact the patient's as he is DNI DNR in event of cardiac arrest. Given that this appeared to be seizure-like activity and he had an unsecured airway and recently 8 I elected to intubate the patient as this is a potentially correctable medical diagnosis. Hospitalist team also attempted to contact the patient's daughter. 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 He has known pseudomonal bacteremia and has 1 set of negative blood cultures at this time. Review of Systems Review of Systems: Unobtainable due to cognitive status Physical Exam Physical Exam: General: Somnolent. Glascow Coma Scale: Eyes: 1, Verbal 2, Motor 5, Total 8. Skin: Warm, dry, Head: Atraumatic Ears, nose, mouth and throat: airway patent Cardiovascular: Normal peripheral perfusion Respiratory: no respiratory distress Gastrointestinal: Non distended Musculoskeletal: No deformity Neuro: Was moving all 4 extremities no focal deficits, his gaze during the events was up into the left Results & Data Results & Data ([facility]) Vital Signs (Past 12 Hours) Vital Signs Temp Pulse Pulse Resp BP BP Pulse Ox 04/17/21 11:23 37.0 C 56 L 20 142/79 H 95 04/17/21 07:00 36.9 C 65 17 165/82 H 92 04/17/21 03:03 36.6 C 62 19 160/83 H 95 Laboratory Results 04/17/21 04/17/21 04/17/21 Range/Units 12:42 12:42 12:42 WBC 10.11 (4.8-10.8) K/uL RBC 2.91 L (4.7-6.1) M/uL Hgb 9.5 L (14.0-18.0) g/dL Hct 28.9 L (42-52) % MCV 99.3 (80-100) fL MCH 32.6 (25-34) pg MCHC 32.9 (32-36) g/dL RDW Std Deviation 49.5 H (36.4-46.3) fL RDW Coeff of Luis 13.7 (11.5-14.5) % Plt Count 197 (130-400) K/uL MPV 9.4 (7.4-10.4) fL Immature Gran % (Auto) 0.4 % Neut % (Auto) 59.1 % Lymph % (Auto) 33.7 % Bureau % (Auto) 4.2 % Eos % (Auto) 2.3 % Baso % (Auto) 0.3 % Neut # (Auto) 5.98 (1.4-6.5) K/uL Lymph # (Auto) 3.41 H (1.2-3.4) K/uL Bureau # (Auto) 0.42 (0.11-0.59) K/uL Eos # (Auto) 0.23 (0-0.5) K/uL Baso # (Auto) 0.03 (0-0.2) K/uL Immature Gran # (Auto) 0.04 H (0.00-0.02) K/uL PT 17.5 H (9.0-12.0) Seconds INR 1.8 H (0.9-1.1) Sodium 136 (136-145) mmol/L Potassium 3.8 (3.5-5.1) mmol/L Chloride 104 (98-107) mmol/L Carbon Dioxide 27 (21-32) mmol/L Anion Gap 5 (3-11) BUN 18 (7-18) mg/dl Creatinine 0.95 (0.6-1.4) mg/dl Est Cr Clr Drug Dosing 68.8 ml/min Est GFR ( Amer) 86.7 ml/min Est GFR (Non-Af Amer) 74.8 ml/min BUN/Creatinine Ratio 18.9 (10-20) Glucose 123 H (70-99) mg/dl Calcium 8.6 (8.5-10.1) mg/dl Magnesium (1.8-2.4) mg/dl Troponin I 0.321 H* (0-0.045) ng/ml 04/17/21 04/16/21 04/16/21 Range/Units 05:22 17:34 17:34 WBC 7.30 (4.8-10.8) K/uL RBC 2.84 L (4.7-6.1) M/uL Hgb 9.2 L (14.0-18.0) g/dL Hct 28.7 L (42-52) % MCV 101.1 H (80-100) fL MCH 32.4 (25-34) pg MCHC 32.1 (32-36) g/dL RDW Std Deviation 50.0 H (36.4-46.3) fL RDW Coeff of Luis 13.6 (11.5-14.5) % Plt Count 180 (130-400) K/uL MPV 9.3 (7.4-10.4) fL Immature Gran % (Auto) 0.1 % Neut % (Auto) 68.5 % Lymph % (Auto) 22.3 % Bureau % (Auto) 6.8 % Eos % (Auto) 2.2 % Baso % (Auto) 0.1 % Neut # (Auto) 4.99 (1.4-6.5) K/uL Lymph # (Auto) 1.63 (1.2-3.4) K/uL Bureau # (Auto) 0.50 (0.11-0.59) K/uL Eos # (Auto) 0.16 (0-0.5) K/uL Baso # (Auto) 0.01 (0-0.2) K/uL Immature Gran # (Auto) 0.01 (0.00-0.02) K/uL PT 16.0 H (9.0-12.0) Seconds INR 1.6 H (0.9-1.1) Sodium 137 (136-145) mmol/L Potassium 3.8 (3.5-5.1) mmol/L Chloride 103 (98-107) mmol/L Carbon Dioxide 28 (21-32) mmol/L Anion Gap 6.0 (3-11) BUN 20 H (7-18) mg/dl Creatinine 1.02 (0.6-1.4) mg/dl Est Cr Clr Drug Dosing 64.4 ml/min Est GFR ( Amer) 79.5 ml/min Est GFR (Non-Af Amer) 68.6 ml/min BUN/Creatinine Ratio 20.0 (10-20) Glucose 133 H (70-99) mg/dl Calcium 8.3 L (8.5-10.1) mg/dl Magnesium 2.4 (1.8-2.4) mg/dl Troponin I (0-0.045) ng/ml Coding Level of Care Code Critical Care ea addt'l 30 min Diagnoses Septic shock A41.9; R65.21 Acidosis, lactic E87.2 Acute pyelonephritis N10 Acute renal failure N17.9 Acute renal failure type: unspecified Acute respiratory failure with hypoxia J96.01 History of mitral valve replacement Z95.2 History of aortic valve replacement Z95.2 Anxiety F41.9 Depression F32.9 CHF (congestive heart failure) I50.9 Atrial fibrillation I48.91 MONICO (acute kidney injury) N17.9 (1) Acute renal failure Acute renal failure type: unspecified Qualified Code(s): N17.9 - Acute kidney failure, unspecified
[2021-04-17] MEDS ORDERED: DC ALL ANTICOAGULANTS ONE (13:59)
[2021-04-17] MEDS ORDERED: PHYTONADIONE 5 MG in SODIUM CHLORIDE 0.9% 50 ML IV STA (14:00)
--- NOTE | 2021-04-17 14:01 | CT Scan Report ---
CT OF THE HEAD WITHOUT CONTRAST CLINICAL HISTORY: Change in mental status. COMPARISON STUDY: Head CT April 13, 2021., CT DOSE: 2006.89 mGycm TECHNIQUE: Helical axial images of the head were obtained without IV contrast. Automated exposure con trol was utilized for the study. A dose lowering technique was utilized adhering to the principles o f ALARA. FINDINGS: This exam is moderately compromised by motion artifact. There has been interval development of a 1 cm hyperdense focus within the right occipital lobe consistent with hemorrhage since head CT April 13, 2021. Numerous infarcts are again noted. These include a subacute infarct within the left par ietal-occipital region which contains a subacute to chronic hematoma which is unchanged. Multiple rig ht-sided cerebral infarcts are again noted, including an infarct within the right thalamus. Endotrach eal tube is incidentally noted. IMPRESSION: 1. Interval development of a 1 cm focus of acute hemorrhage within the right occipital lobe infarct s praveen head CT of April 13, 2021. This finding was discussed with Dr. Eaton at time of dictation. 2. Otherwise, no significant change in appearance of multiple infarcts, as described above. 3. Exam moderately compromised by motion artifact. ACT 112: Negative or not required by law. Electronically signed by: Randell Humphreys M.D. 04/17/2021 2:00 PM
[2021-04-17] MEDS ORDERED: PHYTONADIONE 5 MG in SODIUM CHLORIDE 0.9% 50 ML IV ONE (14:04)
[2021-04-17] MEDS: buPROPion XL 150 MG TABCR PO SCH (14:07)
[2021-04-17] MEDS ORDERED: PHYTONADIONE 10 MG in SODIUM CHLORIDE 0.9% 50 ML IV STA (14:08)
--- NOTE | 2021-04-17 14:26 | Electrocardiogram Report ---
Test Reason : Blood Pressure : / mmHG Vent. Rate : 082 BPM Atrial Rate : 067 BPM P-R Int : 000 ms QRS Dur : 138 ms QT Int : 384 ms P-R-T Axes : 000 -61 -89 degrees QTc Int : 448 ms Poor data quality, interpretation may be adversely affected Atrial fibrillation with premature ventricular or aberrantly conducted complexes Left axis deviation Non-specific intra-ventricular conduction block Nonspecific T wave abnormality Abnormal ECG When compared with ECG of 30-MAR-2021 23:46, QRS duration has increased ST now depressed in Inferior leads Nonspecific T wave abnormality now evident in Inferior leads T wave inversion no longer evident in Lateral leads Confirmed by Gonsalo Encarnacion ([id number]) on 04/17/2021 2:26:11 PM Referred By: REFERRED SELF Confirmed By:Gonsalo Encarnacion
[2021-04-17] MEDS ORDERED: NOREPINEPHRINE/D5W 8 MG/508 ML BAG IV SCH (14:30)
[2021-04-17] MEDS: PROTHROMBIN COMP CONC- KCENTRA 2,000 UNITS in SYRINGE 0 ML IV SCH ×2 (14:43→14:44)
[2021-04-17] MEDS ORDERED: PHENYLEPHRINE HCL IV SCH (14:45)
[2021-04-17] MEDS ORDERED: DEXTROSE 5% IV SCH (14:45)
--- NOTE | 2021-04-17 14:47 | Procedure Note ---
Procedure Note Date of Service April 17, 2021 Procedure Date: Noted above Procedure: Endotracheal intubation Pre-procedure Diagnosis: Acute hypoxic respiratory failure secondary to seizure- like activity Post-procedure Diagnosis: same as above Prior to Procedure: Informed Consent: emergent as potentially reversible medical diagnosis Attending Staff: Chandu Eaton DO The identity of the patient was confirmed and a bedside time out was performed. Description of Procedure: Patient was evaluated and required intubation for impending respiratory failure. The patient was prepared in the usual fashion. A Marmolejo 2 laryngoscope was used. A 8 mm inner diameter endotrachial tube was placed endotracheally to 26 cm at the teeth. A grade 1 view was obtained. The endotracheal tube was noted to pass through the vocal cords. Chest rise was bilateral. Bilateral breath sounds were heard without air sounds in the abdomen. Mist was noted in the endotracheal tube. End-tidal CO2 measurement was positive. Chest x-ray shows proper endotracheal tube placement. Complications: None Findings: Not applicable Specimens: Not applicable Estimated blood loss: Zero Coding CPT Codes Resuscitation - Resuscitation: [id number] Endotracheal Intubation, emergency ([id number]) [facility] [place] Procedure Codes (Charges) Resuscitation Resuscitation: [id number] Endotracheal Intubation, emergency
[2021-04-17 14:51] LABS: Fibrinogen 304 mg/dl (184-400)
--- NOTE | 2021-04-17 14:53 | Electroencephalogram ---
EEG Procedure Note Date of Service April 17, 2021 Start / End Times Start Time: 14:00 End Time: 14:[address] Matthew Eaton History An 80-year-old male with altered mental status. Routine EEG was performed to rule out status epilepticus. Home Medication List Medication Instructions Recorded Confirmed Type amlodipine 10 mg PO HS 01/17/21 03/30/21 History bupropion HCl 150 mg PO QPM 01/17/21 03/30/21 History escitalopram oxalate 20 mg PO HS 01/17/21 03/30/21 History furosemide 40 mg PO DAILY PRN 01/17/21 03/30/21 History losartan 100 mg PO HS 01/17/21 03/30/21 History tamsulosin 0.4 mg PO HS 01/17/21 03/30/21 History triamterene-hydrochlorothiazid 1 cap PO HS 01/17/21 03/30/21 History acetaminophen [Tylenol Extra 1,000 mg PO Q8H PRN 03/30/21 03/30/21 History Strength] amoxicillin 2,000 mg PO DIRECTED PRN 03/30/21 03/30/21 History aspirin 81 mg PO HS 03/30/21 03/30/21 History cholecalciferol (vitamin D3) 125 mcg PO HS 03/30/21 03/30/21 History [Vitamin D3] finasteride 5 mg PO HS 03/30/21 03/30/21 History sulfamethoxazole-trimethoprim 1 tab PO BID 03/30/21 03/30/21 History Inpatient Medication List Meropenem 500 mg/ Syringe 10 mls @ 2 mls/min IV Q6H [facility]; Protocol Stop: 04/23/21 11:29 Last Admin: 04/09/21 11:45 Dose: 2 mls/min Documented by: [id number] Phenylephrine HCl 20 mg/ (Dextrose) 502 mls @ 676.194 mls/hr IV .Q45M XIOMARA; Protocol Stop: 05/17/21 12:59 Last Admin: 04/17/21 14:25 Dose: 7 mcg/kg/min, 946.7 mls/hr Documented by: [id number] Cosigned by: [id number] Titration: 04/17/21 14:22 Dose: 5 mcg/kg/min, 676.2 mls/hr Documented by: [id number] Cosigned by: [id number] Titration: 04/17/21 13:40 Dose: 5 mcg/kg/min, 676.2 mls/hr Documented by: [id number] Admin: 04/17/21 13:14 Dose: 0.5 mcg/kg/min, 67.6 mls/hr Documented by: [id number] Cosigned by: [id number] Fosphenytoin Sodium 1,000 mgpe (/ Sodium Chloride) 70 mls @ 420 mls/hr IV 1315 ONE Stop: 04/17/21 13:24 Last Infusion: 04/17/21 14:05 Dose: 0 mls/hr Documented by: [id number] Admin: 04/17/21 13:14 Dose: 420 mls/hr Documented by: [id number] Description This is a 21 electrode EEG with a single channel dedicated to limited EKG. The electrodes were placed in accordance with the International 10-20 system. REPORT: At the onset of the EEG the patient is in altered mental state. There is no posterior dominant rhythm seen. The background is symmetric and is severely suppressed. The background predominantly consisted of 2-3 Hz polymorphic delta activity with some intermittent electrode artifact. Photic stimulation does not induce any abnormalities. No stage 2 sleep transients are recorded. IMPRESSION: This is an abnormal routine EEG in a patient with altered mentation due to severe background suppression consistent with a severe encephalopathy. No electrographic seizures or epileptiform activity is recorded.
--- NOTE | 2021-04-17 15:21 | Procedure Note ---
Procedure Note Date of Service April 17, 2021 Procedure date: Noted above Procedure: Radial artery cannulation Pre-procedure Diagnosis: Need for invasive monitoring, hypotension/frequent blood draws Post-procedure Diagnosis: same as above Prior to Procedure: Informed Consent: Emergent consent implied Attending Staff: Chandu Eaton DO Skin Prep: Chlorhexidine Anesthesia: 3 mL 1% lidocaine without epinephrine The identity of the patient was confirmed and a bedside time out was performed. Description of Procedure: After sterile prep and sterile drape utilizing standard sterile technique the superficial skin of the left radial artery was anesthetized. The target artery was identified via dynamic ultrasound guidance and entered with a 20-gauge arrow Angiocath. Pulsatile bright red blood return was noted. Via modified Seldinger technique the self-contained guidewire was advanced and the Angiocath advanced over the guidewire. The guidewire was removed and brisk arterial blood return was noted. The pressure monitor was connected, and the arterial line was secured via commercial securement device. A sterile dressing was then applied. Complications: None Estimated blood loss: Trace Patient tolerated the procedure well. Coding CPT Codes Tubes, Drains, and Vasc Access - Tubes, Drains, and Vasc Access: [id number] Insertion Catheter, Artery ([id number]) [facility] [place] Procedure Codes (Charges) Tubes, Drains, and Vasc Access Procedure 2: Tubes, Drains, and Vasc Access: [id number] Insertion Catheter, Artery
[2021-04-17 16:21] VITALS: TEMP 97.5
[2021-04-17 17:23] VITALS: BP 120/69
[2021-04-17 17:50] VITALS: O2SAT 98
[2021-04-17] MEDS ORDERED: LORazepam 0.5 MG/1 ML VIAL IV PRN (17:50)
[2021-04-17] MEDS ORDERED: LORazepam 2 MG/4 ML VIAL IV PRN (17:50)
[2021-04-17] MEDS ORDERED: ONDANSETRON 4 MG OD TAB SL PRN (17:50)
[2021-04-17] MEDS ORDERED: LORazepam 0.5 MG TAB PO PRN (17:50)
[2021-04-17] MEDS ORDERED: ONDANSETRON INJ 2 MG/ML 2 ML VIAL IV PRN (17:50)
--- NOTE | 2021-04-17 17:50 | Hospitalist Progress Note ---
Date of Service April 17, 2021 Assessment & Plan (1) Hypotension: per admitting service notes: -Septic shock -Bacteremia -Complicated UTI 80-year-old man with history significant for aortic valvular replacement and mitral valvular repair with annuloplasty in 2009, recent hospitalization here at [facility] in 12/2020 and subsequent transfer to [facility] for endocarditis recent left occipital intraparenchymal hematoma in 01/2021 and was discharged off anticoagulation despite history of chronic A. fib to rehab, who presented with fevers, chills, hematuria after outpatient Linares catheter replacement. Managed for septic shock. Required initial management in ICU with pressors whi ch have been weaned off. Blood cultures 03/31/2021: Pseudomonas aeruginosa Urine culture 03/31/21: Pseudomonas and Enterococcus Blood cultures 04/02/21: Negative -Linares catheter changed on 03/31/21 in ED -ECHO: unchanged from 01/18/21 -Weaned off of pressors Was on zosyn with persistent fevers and leukocytosis Repeat blood cultures on 04/06/21 and 04/07/21 growing pseudomonas Repeat Urine culture 04/06/21 negative so far Patient comorbidities, history of bioprosthetic valve for mitral valvular repair; infective endocarditis cannot be ruled out. TTE did not show any vegetations. Per cardiology, patient is not a candidate for valvular intervention. Based on sensitivities of blood culture of 04/06/21, pseudomonas appear to now be resistant to cefepime and intermediate to zosyn. This may explain persistent bacteremia. Antibiotics was changed to IV Meropenem yesterday. Panscan with CT chest/abd/pelvis w/co to look for other nidus/sources/abscess showed 2 small prostatic abscesses Discussed with infectious disease Dr Warren Follow up repeat blood cultures from today. Will determine duration once bacteremia is cleared Urology consulted to evaluate remained stable overall until afternoon of April 17, 2021 afebrile BC 04/10: negative x 48 hours tolerated IV Meropenem Day 9 per ID recommendations, will need to complete IV Meropenem x 6 weeks via PICC line microscopic hematuria secondary to UTI, Prostatic Abscess, pre Urologist, watch for gross hematuria, if present will need to hold coumadin April 17, 2021 While being assisted with feeding, patient started to have bradycardia, hypotension, then became unresponsive with seizure-like presentation Atropine, Valium administered, eventually intubated Transferred to the ICU CT head stat: Pending EEG ordered Levophed initiated Discussed case with Dr. 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 This may reflect an infarct with subacute hemorrhage. Patient had right hemianopsia before but developed total blindness on 04/06/21 New infarcts seen on CT head likely embolic with his cardiac comorbidities (valvulopathies and Afib) Previous hemorrhage stable Case discussed with Stripper And Printer/Neurologist. Due to size of infarct, neurologist does not recommend anticoagulation at that time. Started on aspirin 81mg repeat CT head: IMPRESSION: 1. Expected evolutionary changes of the bilateral subacute temporal occipital and right frontal parietal infarcts with subacute hemorrhagic focus of the left occipital lobe. 2. No acute intracranial hemorrhage or midline shift. discussed with Dr. Walter recommend gradual resumption of coumadin, d/c Aspirin 04/17 Coumadin resume gradually inr 1.6 Hold Coumadin until repeat CT head result is available monitor closely -Acute renal failure Likely ischemic ATN secondary to septic shock Resolved Cr: 3.8>3.15>2.43>1.77>1.28>1.29>1.33>1.29>1.17>0.97 Avoid nephrotoxic agents as able Monitor renal function Renal function improved -Lactic acidosis -Hypokalemia Resolved -Mild troponin elevation Secondary to sepsis Denied any anginal symptoms -Chronic systolic heart failure -H/O Bioprosthetic AVR/mitral valve repair -H/O prosthetic valve stenosis -Recent Streptococcus Endocarditis Stripper And Printer recommendations appreciated -Atrial fibrillation Recently discontinued anticoagulation secondary to intracranial hemorrhage Rate controlled Anticoagulation plans as detailed above Hold beta-ann in light of bradycardia episode today -Esophageal varices -Esophagitis Continue pantoprazole -BPH Continue finasteride -H/O PVD Past tobacco use Aspirin discontinued as patient back to coumadin, has recent intracranial hemorrhage DVT Px: SCDs Hold Coumadin in light of above Code Status DNR/DNI Palliative care on board aiding with goals of care. Attempted multiple times to call the patient's but there was no answer Called patient's daughter Sunshine, updated, discussed case and plan of care in detail and at length all questions answered she is understanding, agreeable, comfortable with the plan of care will call patient's again for update Admission and Anticipated Discharge Date Admission Date: March 31, 2021 Subjective Follow-up for bacteremia, etc. Notified by staff combat information center officer as patient noted to be unresponsive, bradycardic while in the middle of feeding Patient seen and examined at the bedside immediately Patient was sitting up, but appears weak, states that he does not feel well Heart rate 80s, blood pressure systolic 70s IV fluid bolus ordered At 1 point heart rate decreased to the 40s/50s, atropine ordered and was given Code purple called Heart rate improved to the 90s Patient then noted to be posturing, with grunting, unresponsive Given another dose of atropine, Valium was ordered At one point patient started to have agonal breathing Attempted to call patient's multiple times with no answer Decision to intubate patient was made Levophed also initiated Patient transferred to the ICU, stat CT head ordered Review of Systems Review of Systems: All systems reviewed & are unremarkable except as noted in Subjective Physical Exam Physical Exam: General-appears weak, pale, or speaking sentences with no effort, 10 patient became unresponsive with seizure-like presentation Eyes- anicteric Neck- no JVD Lungs- clear breath sounds bilaterally, no rales/wheezes Heart-bradycardic, regular rhythm; no murmurs Abdomen- normal bowel sounds, nondistended, soft, nontender Extremities- no pretibial edema, no calf tenderness Neuro-generally weak, but no facial asymmetry, no slurred speech, no new focal weakness or numbness Skin- warm & dry Results & Data Results & Data ([facility]) Vital Signs (Past 12 Hours) Vital Signs Temp Pulse Pulse Pulse Resp BP BP 04/17/21 17:19 110 H 120/69 04/17/21 17:00 139 H 04/17/21 16:30 114 H 04/17/21 16:18 36.4 C L 117 H 108/78 04/17/21 16:07 117 H 86/69 L 04/17/21 15:45 130 H 97/27 L 04/17/21 15:06 106 H 97/70 L 04/17/21 15:00 36.4 C L 89 04/17/21 14:42 97 H 73/55 L 04/17/21 14:33 76 04/17/21 14:21 77 50/38 L 04/17/21 14:03 88 74/54 L 04/17/21 14:00 85 04/17/21 13:59 87 20 04/17/21 13:15 67 52/36 L 04/17/21 13:05 85 21 04/17/21 11:23 37.0 C 56 L 20 142/79 H 04/17/21 07:00 36.9 C 65 17 BP Pulse Ox 04/17/21 17:19 99 04/17/21 17:00 99 04/17/21 16:30 99 04/17/21 16:18 99 04/17/21 16:07 100 04/17/21 15:45 100 04/17/21 15:06 100 04/17/21 15:00 100 04/17/21 14:42 100 04/17/21 14:33 98 04/17/21 14:21 100 04/17/21 14:03 99 04/17/21 14:00 99 04/17/21 13:59 100 04/17/21 13:15 98 04/17/21 13:05 100 04/17/21 11:23 95 04/17/21 07:00 165/82 H 92 all noted and reviewed including below Laboratory Results Laboratory Results - last 24 hr 04/16/21 04/16/21 04/17/21 17:34 17:34 05:22 WBC 7.30 RBC 2.84 L Hgb 9.2 L Hct 28.7 L MCV 101.1 H MCH 32.4 MCHC 32.1 RDW Std Deviation 50.0 H RDW Coeff of Luis 13.6 Plt Count 180 MPV 9.3 Immature Gran % (Auto) 0.1 Neut % (Auto) 68.5 Lymph % (Auto) 22.3 Dewitt % (Auto) 6.8 Eos % (Auto) 2.2 Baso % (Auto) 0.1 Neut # (Auto) 4.99 Lymph # (Auto) 1.63 Dewitt # (Auto) 0.50 Eos # (Auto) 0.16 Baso # (Auto) 0.01 Immature Gran # (Auto) 0.01 PT 16.0 H INR 1.6 H Fibrinogen Heparin Anti-Xa, LM Wt Sodium 137 Potassium 3.8 Chloride 103 Carbon Dioxide 28 Anion Gap 6.0 BUN 20 H Creatinine 1.02 Est Cr Clr Drug Dosing 64.4 Est GFR ( Amer) 79.5 Est GFR (Non-Af Amer) 68.6 BUN/Creatinine Ratio 20.0 Glucose 133 H Calcium 8.3 L Magnesium 2.4 Troponin I 04/17/21 04/17/21 04/17/21 12:42 12:42 12:42 WBC 10.11 RBC 2.91 L Hgb 9.5 L Hct 28.9 L MCV 99.3 MCH 32.6 MCHC 32.9 RDW Std Deviation 49.5 H RDW Coeff of Luis 13.7 Plt Count 197 MPV 9.4 Immature Gran % (Auto) 0.4 Neut % (Auto) 59.1 Lymph % (Auto) 33.7 Dewitt % (Auto) 4.2 Eos % (Auto) 2.3 Baso % (Auto) 0.3 Neut # (Auto) 5.98 Lymph # (Auto) 3.41 H Dewitt # (Auto) 0.42 Eos # (Auto) 0.23 Baso # (Auto) 0.03 Immature Gran # (Auto) 0.04 H PT 17.5 H INR 1.8 H Fibrinogen Heparin Anti-Xa, LM Wt Sodium 136 Potassium 3.8 Chloride 104 Carbon Dioxide 27 Anion Gap 5 BUN 18 Creatinine 0.95 Est Cr Clr Drug Dosing 68.8 Est GFR ( Amer) 86.7 Est GFR (Non-Af Amer) 74.8 BUN/Creatinine Ratio 18.9 Glucose 123 H Calcium 8.6 Magnesium Troponin I 0.321 H* 04/17/21 12:42 WBC RBC Hgb Hct MCV MCH MCHC RDW Std Deviation RDW Coeff of Luis Plt Count MPV Immature Gran % (Auto) Neut % (Auto) Lymph % (Auto) Dewitt % (Auto) Eos % (Auto) Baso % (Auto) Neut # (Auto) Lymph # (Auto) Dewitt # (Auto) Eos # (Auto) Baso # (Auto) Immature Gran # (Auto) PT INR Fibrinogen 304 Heparin Anti-Xa, LM Wt < 0.10 Sodium Potassium Chloride Carbon Dioxide Anion Gap BUN Creatinine Est Cr Clr Drug Dosing Est GFR ( Amer) Est GFR (Non-Af Amer) BUN/Creatinine Ratio Glucose Calcium Magnesium Troponin I
[2021-04-17] MEDS ORDERED: MoRPHine SULF/SW 240 MG/240 ML BTL IV SCH (18:00)
[2021-04-17 18:27] VITALS: PULSE 103
--- NOTE | 2021-04-17 19:02 | Communication Note ---
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 Given the multiple comorbidities and poor prognosis family felt it was best with terminal extubation and comfort measures and allow a natural dying process to continue. I am in agreement with this and have notified the hospitalist service of the terminal extubation and expectant management. Coding Level of Care Code None
[2021-04-17] MEDS ORDERED: MoRPHine SULFATE 4 MG/ML 1 ML CARP\\VIAL IV PRN (21:40)
[2021-04-17] MEDS ORDERED: ATROPINE SULFATE 1% OP SOLN 5 ML BTL SL PRN (21:40)
[2021-04-17] MEDS ORDERED: LORazepam 1 MG/2 ML VIAL IV PRN (21:40)
[2021-04-17] MEDS ORDERED: MoRPHine SULF/NSS 250 MG/250 ML BTL IV SCH (22:00)
--- NOTE | 2021-04-18 01:27 | Death Pronouncement Note ---
Date of Service April 18, 2021 Pronouncement Note Admission Date Admission Date: March 31, 2021 Date and Time of Date of : 04/18/21 Time of : 01:35 PCOD Preliminary cause of : Intracranial hemorrhage Contributing Factors (1) Hypotension: Contributing factors: septic shock, complicated UTI Summary Additional details: Discharge summary to be accomplished by Dr. Brandon. Additional Data Confirmation of : no pulse, no respirations, no heart sounds and pupils fixed and dilated Family: not available Attending/PCP notified?: No Attending physician: Braden Brandon MD
[2021-04-18] MEDS ORDERED: ATROPINE SULFATE 0.1 MG/ML 10ML SYR IV ONE (02:09)
--- NOTE | 2021-05-03 11:50 | Discharge Summary ---
Date of Service May 03, 2021 Admission HPI Per Admitting Provider History obtained from patient, family, and records. Medical history significant for chronic diastolic heart failure (EF 55%, TTE January 2021), A. 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 Last [facility] December 2020 for sepsis secondary to Streptococcus bacteremia secondary to possible subacute bacterial endocarditis. Patient transferred to [facility] due to complex issues. Patient confined at [facility] January 21 to January 30, 2021. No surgical intervention for endocarditis. Patient discharged on 6-week course of Ceftriaxone via PICC line. During confinement, patient developed visual disturbance. CT head showed left occipitoparietal and left cerebellar intraparenchymal hemorrhage, left hemispheric subdural hemorrhage. No neurosurgical intervention. Patient Coumadin stopped on discharge. Patient discharged to rehab facility with Linares catheter given urinary retention and failed voiding trial despite tamsulosin and finasteride Rx. Subsequent stay at [facility] rehab facility from January 30 to March 06, 2021. Patient discharged back home 3 weeks ago. Patient seen by Iram Bravo urology provider 5 days ago for follow-up evaluation of urinary retention. Failed voiding trial at the office. Linares catheter was replaced. Cystoscopy contemplated for future visit as per documentation. I day after urology visit, patient noted to be febrile by patient's . Dark red blood noted in urine. Patient without abdominal plain/flank complaints. Patient PCP contacted by patient's yesterday after a few days of recurrent fever, poor appetite, worsening weakness. Patient denies chest pain, S OB, cough, abdominal pain, diarrhea, dysuria. No unusual confusion as per . Bactrim prescription prescribed. Patient brought to ER due to worsening symptoms. SBP noted to be 80s one point. IVF, Zosyn given at the ER. Patient subsequently noted by to be shaking, O2 sats 80s. Patient complaining of shortness of breath without cough. 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 Admission Exam Per Admitting Provider GENERAL: uncomfortable, minimal respiratory distress SKIN: Pallor, warm HEENT: [place] palpebral conjunctivae, no ptosis, dry buccal mucosa, nasal cannula in place NECK : Supple, no tenderness CHEST : Decreased breath sounds, expiratory wheezes, no tenderness HEART : Irregular, systolic murmur best heard on the left sternal border ABDOMEN: Some distention, nontender EXTREMITIES : No LE swelling/tenderness, no other conspicuous deformities noted NEUROLOGIC : Coherent, no facial asymmetry, no other gross focality Principal Diagnosis Bacteremia UTI Acute Hemorrhagic CVA Discharge Exam patient Discharge Data Allergies Allergy/AdvReac Type Severity Reaction Status Date / Time No Known Allergies Allergy Unknown Verified 03/30/21 23:14 Consultations 03/31/21 00:04 ED Decision to Admit Stat 03/31/21 04:43 Consult Resp Therapist Routine Consult Nephrology Routine 04/01/21 09:06 Consult Neurology Routine 04/02/21 08:00 Consult Cardiology Routine 04/02/21 16:48 Consult Palliative Care Routine 04/04/21 07:47 Consult Infectious Diseases Routine 04/10/21 11:16 Consult Urology Routine 04/12/21 08:15 Consult Infectious Diseases Routine Ordered Studies 03/31/21 00:06 CT abd pelvis wo con Urgent 03/31/21 03:49 CT head/brain wo con Urgent 03/31/21 04:44 US point of care ultrasound Stat 04/01/21 11:19 MR brain wo con Routine 04/02/21 US carotid doppler BI Routine 04/02/21 16:22 CT head/brain wo con Urgent 04/06/21 08:42 CT head/brain wo con Stat 04/07/21 07:28 CT head/brain wo con Urgent 04/09/21 10:10 CT abd pelvis IV con only Urgent CT chest diagnostic w con Urgent 04/13/21 09:00 CT head/brain wo con Routine 04/17/21 12:53 CT head/brain wo con Stat Hospital Course (1) Hypotension: per admitting service notes: -Septic shock -Bacteremia -Complicated UTI 80-year-old man with history significant for aortic valvular replacement and mitral valvular repair with annuloplasty in 2009, recent hospitalization here at [facility] in 12/2020 and subsequent transfer to [facility] for endocarditis recent left occipital intraparenchymal hematoma in 01/2021 and was discharged off anticoagulation despite history of chronic A. fib to rehab, who presented with fevers, chills, hematuria after outpatient Linares catheter replacement. Managed for septic shock. Required initial management in ICU with pressors which have been weaned off. Blood cultures 03/31/2021: Pseudomonas aeruginosa Urine culture 03/31/21: Pseudomonas and Enterococcus Blood cultures 04/02/21: Negative -Linares catheter changed on 03/31/21 in ED -ECHO: unchanged from 01/18/21 -Weaned off of pressors Was on zosyn with persistent fevers and leukocytosis Repeat blood cultures on 04/06/21 and 04/07/21 growing pseudomonas Repeat Urine culture 04/06/21 negative so far Patient comorbidities, history of bioprosthetic valve for mitral valvular repair; infective endocarditis cannot be ruled out. TTE did not show any vegetations. Per cardiology, patient is not a candidate for valvular intervention. Based on sensitivities of blood culture of 04/06/21, pseudomonas appear to now be resistant to cefepime and intermediate to zosyn. This may explain persistent bacteremia. Antibiotics was changed to IV Meropenem yesterday. Panscan with CT chest/abd/pelvis w/co to look for other nidus/sources/abscess showed 2 small prostatic abscesses Discussed with infectious disease Dr Warren Follow up repeat blood cultures from today. Will determine duration once bacteremia is cleared Urology consulted to evaluate remained stable overall until afternoon of April 17, 2021 afebrile 04/10: negative x 48 hours tolerated IV Meropenem Day 9 per ID recommendations, will need to complete IV Meropenem x 6 weeks via PICC line microscopic hematuria secondary to UTI, Prostatic Abscess, pre Urologist, watch for gross hematuria, if present will need to hold coumadin April 17, 2021 While being assisted with feeding, patient started to have bradycardia, hypotension, then became unresponsive with seizure-like presentation Atropine, Valium administered, eventually intubated Transferred to the ICU CT head stat: Interval development of a 1 cm focus of acute hemorrhage within the right occipital lobe infarct since head CT of April 13, 2021. Levophed initiated Dr. 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 This may reflect an infarct with subacute hemorrhage. Patient had right hemianopsia before but developed total blindness on 04/06/21 New infarcts seen on CT head likely embolic with his cardiac comorbidities (valvulopathies and Afib) Previous hemorrhage stable Case discussed with Financial Compliance Officer/Neurologist. Due to size of infarct, neurologist does not recommend anticoagulation at that time. Started on aspirin 81mg repeat CT head: IMPRESSION: 1. Expected evolutionary changes of the bilateral subacute temporal occipital and right frontal parietal infarcts with subacute hemorrhagic focus of the left occipital lobe. 2. No acute intracranial hemorrhage or midline shift. discussed with Dr. Walter recommended gradual resumption of coumadin, d/c Aspirin Coumadin resumed gradually inr 1.6 Held Coumadin until repeat CT head result is available -Acute renal failure Likely ischemic ATN secondary to septic shock Resolved Cr: 3.8>3.15>2.43>1.77>1.28>1.29>1.33>1.29>1.17>0.97 Avoid nephrotoxic agents as able Monitor renal function Renal function improved -Lactic acidosis -Hypokalemia Resolved -Mild troponin elevation Secondary to sepsis Denied any anginal symptoms -Chronic systolic heart failure -H/O Bioprosthetic AVR/mitral valve repair -H/O prosthetic valve stenosis -Recent Streptococcus Endocarditis Financial Compliance Officer consulted -Atrial fibrillation Recently discontinued anticoagulation secondary to intracranial hemorrhage Rate controlled Anticoagulation plans as detailed above Held beta-ann in light of bradycardia episode -Esophageal varices -Esophagitis Continue pantoprazole -BPH Continue finasteride -H/O PVD Past tobacco use Aspirin discontinued as patient back to coumadin, has recent intracranial hemorrhage DVT Px: SCDs Held Coumadin in light of above Total Time Total Time Spent Total Time Spent (In Minutes): > 30 minutes Discharge Plan Discharge Items Patient Disposition:
== END 2021-04-18 02:10 | disposition expired | DRG 871 ==
LOC: ED 21:46 → 1E 03-31 03:00 → SUATTDRO 03-31 03:00 → 1E 03-31 04:36 → 2S 04-01 15:27 → 1E 04-17 13:17 → 3E 04-17 19:01